=== PATIENT | male | born 1935 | race Caucasian/White ===

== ENCOUNTER 2018-01-02 14:53 | Inpatient (IN) | payer OTHER, MEDICARE ==
[2018-01-02] MEDS ORDERED: HEPARIN SODIUM,PORCINE 5,000 UNIT/ML 1 ML VIAL IV PRN (15:29)
[2018-01-02] MEDS ORDERED: HEPARIN SODIUM,PORCINE 5,000 UNIT/ML 1 ML VIAL IV ONE (15:29)
[2018-01-02] MEDS: HEPARIN SOD,PORK IN 0.45% NACL 25,000 UNIT in 0.45% NACL 1 500ML.BAG IV SCH (15:45)
[2018-01-02] MEDS ORDERED: LABETALOL 5 MG/ML VIAL MDV IVP STA (15:52)
--- NOTE | 2018-01-02 15:53 | ED ---
General Adult HPI - General Chief complaint: Chest Pain Stated complaint: N-STEMI AND BILATERAL PNUEMONIA, TRF FR VALENZUELAE Source: EMS Mode of arrival: EMS - History of Present Illness Initial comments: Dictation was produced using [employer] dictation software. please excuse any grammatical, word or spelling errors. Chief Complaint: 82-year-old male with past medical history of atrial fibrillation presents with episode of chest pressure, shortness of breath and presyncope. History of Present Illness: Patient was initially evaluated [facility] where she answered for elevated troponin. Per transferring physician patient did not complain to them that he was having any chest pressure or chest pain. History limited by communication difficulties. Patient is extremely hard of hearing despite bilateral hearing aids. presents at bedside later reports that patient had episode of chest pressure, shortness of breath and presyncopal symptoms. Patient has no completes at this time. Denies any chest pain currently The ROS documented in this emergency department record has been reviewed and confirmed by me. Those systems with pertinent positive or negative responses have been documented in the HPI. All other systems are other negative and/or noncontributory. - Related Data Home Medications Medication Instructions Recorded Confirmed Acetaminophen [Tylenol] 500 mg PO TID PRN 01/02/18 01/02/18 Ammonium Lactate Cream [Lac-Hydrin 1 applic TOPICAL DAILY 01/02/18 01/02/18 12% Cream] Aspirin 325 mg PO DAILY 01/02/18 01/02/18 Atorvastatin Calcium [Lipitor] 80 mg PO HS 01/02/18 01/02/18 Carvedilol [Coreg] 6.25 mg PO BID-W/MEALS 01/02/18 01/02/18 Fluocinonide 0.05% [Lidex 0.05% 1 applic TOPICAL BID 01/02/18 01/02/18 cream] Furosemide [Lasix] 40 mg PO DAILY 01/02/18 01/02/18 Insulin Glargine,Hum.rec.anlog 35 unit SQ HS 01/02/18 01/02/18 [Basaglar Kwikpen U-100] Ketoconazole 2% Cream [Nizoral 2%] 1 applic TOPICAL BID 01/02/18 01/02/18 Multivitamins, Thera [Multivitamin 1 tab PO DAILY 01/02/18 01/02/18 (formulary)] Pioglitazone [Actos] 45 mg PO DAILY 01/02/18 01/02/18 Sildenafil Citrate [Viagra] 100 mg PO ONCE 01/02/18 01/02/18 glipiZIDE [Glucotrol] 10 mg PO BID 01/02/18 01/02/18 methylPREDNISolone [Medrol Dose 4 mg PO DIRECTED 01/02/18 01/02/18 Pack] Allergies Allergy/AdvReac Type Severity Reaction Status Date / Time No Known Allergies Allergy Verified 01/02/18 16:07 Review of Systems ROS Statement: Those systems with pertinent positive or pertinent negative responses have been documented in the HPI. ROS Other: All systems not noted in ROS Statement are negative. Past Medical History Past Medical History: Atrial Fibrillation, COPD, Diabetes Mellitus, Hypertension Past Surgical History: Unable to Obtain, Cholecystectomy Additional Past Surgical History / Comment(s): lymph node removal for CA, collapsed lung per pt. Past Psychological History: No Psychological Hx Reported General Exam - General Exam Comments Initial Comments: PHYSICAL EXAM: General Impression: Alert and oriented x3, not in acute distress HEENT: Normocephalic atraumatic, extra-ocular movements intact, pupils equal and reactive to light bilaterally, mucous membranes moist. Cardiovascular: Heart regular rate and rhythm, S1&S2 audible, no murmurs, rubs or gallops Chest: Lungs clear to auscultation bilaterally, no rhonchi, no wheeze, no rales Abdomen: Bowel sounds present, abdomen soft, non-tender, non-distended, no organomegaly Musculoskeletal: Pulses present and equal in all extremities, no peripheral edema Motor: Moves all tremors grossly Neurological: CN II-XII grossly intact, no focal motor or sensory deficits noted Skin: Intact with no visualized rashes Psych: Normal affect and mood Course Vital Signs 01/02/18 01/02/18 14:54 15:48 Temperature 98.8 F Pulse Rate 95 78 Respiratory 18 18 Rate Blood Pressure 214/98 195/111 O2 Sat by Pulse 96 95 Oximetry Medical Decision Making - Medical Decision Making ED course: 82-year-old male presents with symptoms concerning for acute coronary syndrome. Troponin elevated at transfer facility of 0.2. There is some suspicion that patient's symptoms represent an STEMI given that reports that he did complain of chest pressure. EKG does not show myocardia infarction at this time. Signs upon arrival shows elevated blood pressure of 195/111, rest of vital signs within normal limits. Reports that he did not take his blood pressure medicine today secondary to vomiting. There is some suspicion that patient's symptoms represent ACS. Currently he denies any shortness of breath. He is a mesh lung sounds however no significant crackling. Patient to be continued on heparin drip. We'll have him admitted for NSTEMI. Patient given aspirin and the previous hospital. Be admitted with cardiology consult. EKG Interpretation: A 12 lead EKG was obtained. It was interpreted by myself and attending physician. There is a P wave before every QRS complex. Rate is 97. Rhythm is sinus rhythm, SC interval 174, QRS 64, QTc 434. QT is not prolonged. No ST segment depression or elevation. There is a T-wave inversion in aVL. No other abnormalities. Disposition Clinical Impression: NSTEMI (non-ST elevated myocardial infarction) Disposition: ADMITTED IP TO THIS HOSP Condition: Fair Referrals: [facility]inic [Primary Care Provider] - 1-2 days Decision Time: 16:52
--- NOTE | 2018-01-02 16:08 | XR ---
EXAMINATION TYPE: XR chest 2V DATE OF EXAM: 01/02/2018 COMPARISON: 03/30/2014 and earlier today HISTORY: 82 year-old male shortness of breath and pain TECHNIQUE: AP and lateral views FINDINGS: Low lung volumes with crowded vascular markings. Heart upper limits of normal in size. Patchy bibasil ar densities are present with possible trace effusions. Right anterior chest wall injection port with catheter tip at the mid SVC. Upper lungs appear relatively clear. IMPRESSION: Hypoventilatory changes limiting assessment. There are focal bibasilar densities as well as possible trace effusions. Follow-up recommended with better inspiratory effort. Findings could represent seque la of CHF or bibasilar pneumonitis.
[2018-01-02] MEDS ORDERED: NITROGLYCERIN SL TABS 0.4 MG TAB SUBLINGUAL PRN (16:52)
[2018-01-02 20:18] LABS: Creatine Kinase MB 71.4 ng/mL (0.0-2.4); Troponin I 0.176 ng/mL (0.000-0.034)
[2018-01-02 21:09] LABS: Glucose,Whole Blood 335 mg/dL (75-99)
[2018-01-02] MEDS: CARVEDILOL 6.25 MG TAB PO SCH (22:26)
[2018-01-02] MEDS: ATORVASTATIN 80 MG TAB PO SCH (22:26)
[2018-01-02] MEDS ORDERED: HALOPERIDOL LACTATE 5 MG/ML 1 ML VIAL IM PRN (22:45)
[2018-01-03 03:20] LABS: HCT 45.5 % (39.0-53.0); HGB 13.9 gm/dL (13.0-17.5); Hypochromasia Moderate; MCH 29.8 pg (25.0-35.0); MCHC 30.5 g/dL (31.0-37.0); MCV 97.6 fL (80.0-100.0); Mean Platelet Volume 7.4; Platelet Count 450 k/uL (150-450); RBC 4.66 m/uL (4.30-5.90); RDW 14.1 % (11.5-15.5)
[2018-01-03 03:38] LABS: WBC 28.8 k/uL (3.8-10.6)
[2018-01-03 03:44] LABS: Calcium 9.2 mg/dL (8.4-10.2); Cholesterol 147 mg/dL (<200); HDL Cholesterol 57 mg/dL (40-60); LDL Cholesterol,Calculated 65 mg/dL (0-99); Magnesium 2.1 mg/dL (1.6-2.3); Potassium 4.8 mmol/L (3.5-5.1); Triglycerides 125 mg/dL (<150)
[2018-01-03 04:04] LABS: Creatine Kinase MB 59.7 ng/mL (0.0-2.4)
[2018-01-03 04:05] LABS: Troponin I 0.159 ng/mL (0.000-0.034)
[2018-01-03 06:10] LABS: Glucose,Whole Blood 333 mg/dL (75-99)
[2018-01-03] MEDS: CARVEDILOL 6.25 MG TAB PO SCH ×3 (06:26→17:24)
[2018-01-03] MEDS: INSULIN ASPART 100 UNIT/ML 1 ML 10 ML VIAL SQ SCH ×4 (07:40→21:18)
[2018-01-03 08:13] LABS: Appearance,Urine Clear (Clear); Bilirubin,Urine Negative (Negative); Blood,Urine Large (Negative); Color,Urine Light Yellow; Glucose,Urine (UA) 4+ (Negative); Hyaline Casts,Urine 3 /lpf (0-2); Ketones,Urine Trace (Negative); Leukocyte Esterase,Urine Negative (Negative); Mucus,Urine Rare /hpf; Nitrite,Urine Negative (Negative); Protein,Urine 2+ (Negative); RBC,Urine 1 /hpf (0-5); Specific Gravity,Urine 1.015 (1.001-1.035); Squamous Epithelial Cell,Urine <1 /hpf (0-4); Urobilinogen,Urine <2.0 mg/dL (<2.0); WBC,Urine <1 /hpf (0-5)
[2018-01-03] MEDS: PIPERACILLIN-TAZOBACTAM 3.375 GM in DEXTROSE/WATER 1 50ML.BAG IVPB SCH ×3 (08:33→23:10)
[2018-01-03] MEDS ORDERED: INSULIN DETEMIR 100 UNIT/ML 10 ML VIAL SQ ONE (08:45)
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
[2018-01-03] MEDS: PIOGLITAZONE 45 MG TAB PO SCH (09:10)
[2018-01-03] MEDS: ASPIRIN 325 MG TAB PO SCH (09:13)
[2018-01-03 09:53] LABS: Basophils % (A) 0 %; Eosinophils % (A) 0 %; HCT 44.5 % (39.0-53.0); HGB 13.5 gm/dL (13.0-17.5); Hypochromasia Slight; Lymphocytes # (A) 1.3 k/uL (1.0-4.8); Lymphocytes % (A) 5 %; MCH 28.7 pg (25.0-35.0); MCHC 30.4 g/dL (31.0-37.0); MCV 94.5 fL (80.0-100.0); Mean Platelet Volume 7.7; Monocytes # (A) 1.5 k/uL (0-1.0); Monocytes % (A) 6 %; Neutrophils # (A) 20.8 k/uL (1.3-7.7); Neutrophils % (A) 87 %; Platelet Count 441 k/uL (150-450); RBC 4.71 m/uL (4.30-5.90); RDW 13.9 % (11.5-15.5); WBC 23.9 k/uL (3.8-10.6)
[2018-01-03] MEDS: HEPARIN SOD,PORK IN 0.45% NACL 25,000 UNIT in 0.45% NACL 1 500ML.BAG IV SCH ×2 (11:01→11:06)
--- NOTE | 2018-01-03 11:35 | ECHOF ---
Referral Reason:sob MEASUREMENTS -------- HEIGHT: 177.8 cm WEIGHT: 92.1 kg BP: 126/88 RVIDd: 2.6 cm (< 3.3) IVSd: 1.0 cm (0.6 - 1.1) LVIDd: 3.9 cm (3.9 - 5.3) LVPWd: 1.1 cm (0.6 - 1.1) IVSs: 1.3 cm LVIDs: 2.8 cm LVPWs: 1.3 cm LAESV Index (A-L): 26.57 ml/m Ao Diam: 4.1 cm (2.0 - 3.7) AV Cusp: 2.0 cm (1.5 - 2.6) LA Diam: 4.2 cm (2.7 - 3.8) MV E Arturo: 1.22 m/s MV DecT: 256 ms MV A Arturo: 0.89 m/s MV E/A Ratio: 1.37 FINDINGS -------- Sinus rhythm with extra systolic beats. This was a technically difficult study with suboptimal views. The left ventricular size is normal. There is borderline concentric left ventricular hypertrophy. Overall left ventricular systolic function is normal with, an EF between 55 - 60 %. The right ventricle is normal in size and function. Normal LA size by volume 22+/-6 ml/m2. The right atrium is normal in size. 3 ml of Lumason was utilized for enhancement of images. The aortic valve is trileaflet, and appears structurally normal. No aortic stenosis or regurgitation. The mitral valve leaflets are mildly thickened. Mild mitral regurgitation is present. Mild tricuspid regurgitation present. Right ventricular systolic pressure is normal at < 35 mmHg. There is no evidence of pulmonary hypertension. Trace/mild (physiologic) pulmonic regurgitation. The aortic root size is normal. Normal inferior vena cava with normal inspiratory collapse consistent with estimated right atrial pre ssure of 5 mmHg. There is no pericardial effusion. CONCLUSIONS -------- 1. Sinus rhythm with extra systolic beats. 2. This was a technically difficult study with suboptimal views. 3. The left ventricular size is normal. 4. There is borderline concentric left ventricular hypertrophy. 5. Overall left ventricular systolic function is normal with, an EF between 55 - 60 %. 6. Normal LA size by volume 22+/-6 ml/m2. 7. 3 ml of Lumason was utilized for enhancement of images. 8. The aortic valve is trileaflet, and appears structurally normal. No aortic stenosis or regurgitati on. 9. The mitral valve leaflets are mildly thickened. 10. Mild mitral regurgitation is present. 11. Mild tricuspid regurgitation present. 12. Right ventricular systolic pressure is normal at < 35 mmHg. 13. Trace/mild (physiologic) pulmonic regurgitation. 14. The aortic root size is normal. 15. There is no pericardial effusion. CHAIN REPAIRER: Zach Dickerson RDCS
--- NOTE | 2018-01-03 11:54 | XR ---
EXAMINATION TYPE: XR chest 1V portable DATE OF EXAM: 01/03/2018 COMPARISON: 01/02/2018 HISTORY: Cough TECHNIQUE: Single frontal view of the chest is obtained. FINDINGS: Mediport catheter seen. Cardiomegaly and atherosclerotic change aorta. Diffuse osteopenia. Bilateral consolidation and tiny left effusion. No overt failure. No pneumothorax. IMPRESSION: Stable bilateral infiltrate and tiny left effusion.
[2018-01-03 12:21] LABS: Glucose,Whole Blood 263 mg/dL (75-99)
--- NOTE | 2018-01-03 14:30 | P.HPIM ---
History of Present Illness H&P Date: 01/03/18 Chief Complaint: Chest pressure and shortness of breath Patient is a 82-year-old male with a known history of paroxysmal atrial fibrillation, metastatic melanoma currently undergoing chemotherapy last dose on 12/23/2017, hypertension, diabetes, hyperlipidemia, dementia was initially presented to [facility] with complaints of chest pressure shortness of breath and presyncope. Patient was transferred to [facility] due to slightly elevated troponin level. Patient was combative last night and apparently hitting the nurses, spitting out his medications. Patient was given a dose of Haldol last night. Otherwise patient does not have any complaints of fever or chills. Patient is more awake and oriented today. EKG showed normal sinus rhythm with occasional PACs Chest x-ray showed hypoventilatory changes limiting assessment. There are focal right basilar densities as well as possible trace effusions. Follow-up recommended. Repeat chest x-ray showed stable bilateral infiltrate and tiny left effusion. WBC 28.8 on admission Hyperglycemia with blood sugar 400 on admission CPK 2232 Troponin 0.152 BNP 1552 Patient is hard of hearing. Review of Systems Constitutional: Patient denies any fever or chills . No generalized weakness or weight loss. Abdomen: Patient denied nausea vomiting and diarrhea and abdominal pain. Cardiovascular: Patient denies any chest pain or short of breath no palpitations. Respiratory: patient denied any cough is from production. No shortness of breath Neurologic: Patient denied any numbness or tingling headache. Complete review of systems could not be obtained from the patient. Past Medical History Past Medical History: Atrial Fibrillation, Cancer, COPD, Diabetes Mellitus, Hearing Disorder / Deafness, Hyperlipidemia, Hypertension, Memory Impairment, Osteoarthritis (OA), Skin Disorder Additional Past Medical History / Comment(s): melanoma- has had 2 chemo treatments at [facility] in [place] stated next one due 01-07-18. 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 Past Anesthesia/Blood Transfusion Reactions: No Reported Reaction Smoking Status: Former smoker - Past Family History Mother Family Medical History: Neurologic Disorder Additional Family Medical History / Comment(s): parkinsons Father Family Medical History: Cancer Additional Family Medical History / Comment(s): spinal cancer Medications and Allergies Home Medications Medication Instructions Recorded Confirmed Type Acetaminophen [Tylenol] 500 mg PO TID PRN 01/02/18 01/02/18 History Ammonium Lactate Cream [Lac-Hydrin 1 applic TOPICAL DAILY 01/02/18 01/02/18 History 12% Cream] Aspirin 325 mg PO DAILY 01/02/18 01/02/18 History Atorvastatin Calcium [Lipitor] 80 mg PO HS 01/02/18 01/02/18 History Carvedilol [Coreg] 6.25 mg PO BID-W/MEALS 01/02/18 01/02/18 History Fluocinonide 0.05% [Lidex 0.05% 1 applic TOPICAL BID 01/02/18 01/02/18 History cream] Furosemide [Lasix] 40 mg PO DAILY 01/02/18 01/02/18 History Insulin Glargine,Hum.rec.anlog 35 unit SQ HS 01/02/18 01/02/18 History [Basaglar Kwikpen U-100] Ketoconazole 2% Cream [Nizoral 2%] 1 applic TOPICAL BID 01/02/18 01/02/18 History Multivitamins, Thera [Multivitamin 1 tab PO DAILY 01/02/18 01/02/18 History (formulary)] Pioglitazone [Actos] 45 mg PO DAILY 01/02/18 01/02/18 History Sildenafil Citrate [Viagra] 100 mg PO ONCE 01/02/18 01/02/18 History glipiZIDE [Glucotrol] 10 mg PO BID 01/02/18 01/02/18 History methylPREDNISolone [Medrol Dose 4 mg PO DIRECTED 01/02/18 01/02/18 History Pack] Allergies Allergy/AdvReac Type Severity Reaction Status Date / Time No Known Allergies Allergy Verified 01/02/18 16:07 Physical Exam Vitals: Vital Signs Temp Pulse Pulse Resp BP BP Pulse Ox 01/03/18 11:16 97.2 F L 82 24 165/77 97 01/03/18 08:00 87 20 126/68 95 01/03/18 04:00 97.5 F L 109 H 24 139/96 92 L 01/03/18 00:00 115 H 24 174/110 97 01/02/18 20:00 96.2 F L 95 24 187/91 95 01/02/18 18:59 98.2 F 97 24 191/93 96 01/02/18 18:24 78 18 179/80 96 01/02/18 17:25 170/95 01/02/18 16:57 87 18 199/98 95 01/02/18 15:48 78 18 195/111 95 01/02/18 14:54 98.8 F 95 18 214/98 96 Intake and Output 01/02/18 01/03/18 01/03/18 22:59 06:59 14:59 Intake Total 235 365 Output Total 500 375 Balance -265 -10 Intake: Intake, IV Titration 235 265 Amount Heparin Sod,Pork in 0.45% 235 265 NaCl 25,000 unit In 0.45 % NaCl 1 500ml.bag @ 10. 16 UNITS/KG/HR 20 mls/hr IV .Q24H [facility] Rx#: [id number] Oral 100 Output: Urine 500 375 Other: Voiding Method Urinal Incontinent # Voids 1 1 Weight 92.4 kg PHYSICAL EXAMINATION: Patient is lying in the bed comfortably, no acute distress, awake alert and oriented. Hard of hearing. HEENT: Normocephalic. Neck is supple. Pupils reactive. Nostrils clear. Oral cavity is moist. Ears reveal no drainage. Neck reveals no JVD, carotid bruits, or thyromegaly. CHEST EXAMINATION: Trachea is central. Symmetrical expansion. Bibasilar crackles. No wheezing. No rhonchi.. CARDIAC: Normal S1, S2 with no gallops. No murmurs ABDOMEN: Soft. Bowel sounds normal. No organomegaly. No abdominal bruits. Extremities: reveal no edema. No clubbing or cyanosis Neurologically awake, alert, oriented x3 with well-coordinated movements. No focal deficits noted Skin: No rash or skin lesions. Psychiatric: Coperative. Could not be assessed completely Musculoskeletal: No joint swelling or deformity. Normal range of motion. Results CBC & Chem 7: 01/03/18 09:21 01/03/18 03:13 Labs: Abnormal Lab Results - Last 24 Hours (Table) 01/02/18 01/02/18 01/02/18 Range/Units 15:27 19:25 19:25 WBC (3.8-10.6) k/uL MCHC (31.0-37.0) g/dL Neutrophils # (1.3-7.7) k/uL Monocytes # (0-1.0) k/uL APTT 32.6 H (22.0-30.0) sec BUN (9-20) mg/dL Creatinine (0.66-1.25) mg/dL Glucose (74-99) mg/dL POC Glucose (mg/dL) (75-99) mg/dL Total Creatine Kinase 2471 H (55-170) U/L CK-MB (CK-2) 71.4 H* (0.0-2.4) ng/mL Troponin I 0.220 H* 0.176 H* (0.000-0.034) ng/mL Urine Protein (Negative) Urine Glucose (UA) (Negative) Urine Ketones (Negative) Urine Blood (Negative) Hyaline Casts (0-2) /lpf Urine Mucus (None) /hpf 01/02/18 01/03/18 01/03/18 Range/Units 21:07 03:13 03:13 WBC 28.8 H* (3.8-10.6) k/uL MCHC 30.5 L (31.0-37.0) g/dL Neutrophils # (1.3-7.7) k/uL Monocytes # (0-1.0) k/uL APTT (22.0-30.0) sec BUN (9-20) mg/dL Creatinine (0.66-1.25) mg/dL Glucose (74-99) mg/dL POC Glucose (mg/dL) 335 H (75-99) mg/dL Total Creatine Kinase 2232 H (55-170) U/L CK-MB (CK-2) 59.7 H* (0.0-2.4) ng/mL Troponin I 0.159 H* (0.000-0.034) ng/mL Urine Protein (Negative) Urine Glucose (UA) (Negative) Urine Ketones (Negative) Urine Blood (Negative) Hyaline Casts (0-2) /lpf Urine Mucus (None) /hpf 01/03/18 01/03/18 01/03/18 Range/Units 03:13 03:13 06:08 WBC (3.8-10.6) k/uL MCHC (31.0-37.0) g/dL Neutrophils # (1.3-7.7) k/uL Monocytes # (0-1.0) k/uL APTT 34.4 H (22.0-30.0) sec BUN 58 H (9-20) mg/dL Creatinine 1.80 H (0.66-1.25) mg/dL Glucose 423 H (74-99) mg/dL POC Glucose (mg/dL) 333 H (75-99) mg/dL Total Creatine Kinase (55-170) U/L CK-MB (CK-2) (0.0-2.4) ng/mL Troponin I (0.000-0.034) ng/mL Urine Protein (Negative) Urine Glucose (UA) (Negative) Urine Ketones (Negative) Urine Blood (Negative) Hyaline Casts (0-2) /lpf Urine Mucus (None) /hpf 01/03/18 01/03/18 01/03/18 Range/Units 07:36 09:21 09:21 WBC 23.9 H (3.8-10.6) k/uL MCHC 30.4 L (31.0-37.0) g/dL Neutrophils # 20.8 H (1.3-7.7) k/uL Monocytes # 1.5 H (0-1.0) k/uL APTT 48.1 H (22.0-30.0) sec BUN (9-20) mg/dL Creatinine (0.66-1.25) mg/dL Glucose (74-99) mg/dL POC Glucose (mg/dL) (75-99) mg/dL Total Creatine Kinase (55-170) U/L CK-MB (CK-2) (0.0-2.4) ng/mL Troponin I (0.000-0.034) ng/mL Urine Protein 2+ H (Negative) Urine Glucose (UA) 4+ H (Negative) Urine Ketones Trace H (Negative) Urine Blood Large H (Negative) Hyaline Casts 3 H (0-2) /lpf Urine Mucus Rare H (None) /hpf Thrombosis Risk Factor Assmnt - DVT/VTE Prophylaxis DVT/VTE Prophylaxis: Pharmacologic Prophylaxis ordered - Choose All That Apply Any of the Below Risk Factors Present?: No Each Risk Factor Represents 2 Points: Malignancy Each Risk Factor Represents 3 Points: Age 75 years or older Thrombosis Risk Factor Assessment Total Risk Factor Score: 5 Thrombosis Risk Factor Assessment Level: High Risk Assessment and Plan Assessment: Shortness of breath and chest pressure. Rule out ACS Slightly elevated troponin. Could be due to acute kidney injury. Bibasilar atelectasis/infiltrate and possible aspiration pneumonia Metastatic melanoma, currently undergoing chemotherapy. Last dose on 12/23/2017 Acute on chronic kidney disease stage III Acute rhabdomyolysis Agitation and combativeness. On admission. Possible delirium vs dementia with behavioral changes. Hypertension Diabetes type 2 Hyperglycemia with uncontrolled diabetes Dementia Hearing disorder/deafness Previous history of smoking COPD DVT prophylaxis Plan: Patient be continued on heparin IV and serial EKG and troponins. Troponins are trending down. We'll continue with gentle hydration and monitor CPK level as well as renal function. Continue with IV hydration. Started back on insulin dose and sliding scale added. Continue the home medications and pain management and follow up closely. Cardiology is on board. 2-D echocardiogram was ordered. Patient is more awake and oriented today but does have significant hearing impairment. Prognosis is guarded with multiple medical problems and, conditions. Patient will be continued on antibiotics in the form of Zosyn. Leukocytosis is improving. Patient was seen by speech swallow evaluation and recommended esophagogram. Further recommendations based on the clinical course. Time with Patient: Greater than 30
[2018-01-03 15:58] LABS: Hemoglobin A1C 9.1 % (4.0-6.0)
--- NOTE | 2018-01-03 16:33 | FL ---
ESOPHOGRAM. HISTORY: Dysphagia Esophagram was performed per the contrast technique. Examination is limited given patient's difficult y in hearing. Tertiary contractions are seen throughout the esophagus compatible with presbyesophagus. There is sta sis of contrast within the esophagus noted. There is no evidence for filling defect, mass or diverticulum. No hiatal hernia seen. Subsequently single contrast cervical esophagram was performed which fails demonstrate evidence for a spiration, penetration or mass. IMPRESSION: 1. Presbyesophagus with stasis of contrast within the esophagus. As noted the examination is quite li mited given patient's difficulty in hearing.
[2018-01-03 17:08] LABS: Glucose,Whole Blood 173 mg/dL (75-99)
[2018-01-03 17:16] LABS: Glucose,Whole Blood 171 mg/dL (75-99)
[2018-01-03] MEDS: CLOTRIMAZOLE 1% CREAM 15 GM TUBE TOPICAL SCH ×2 (17:18→20:17)
[2018-01-03] MEDS: ATORVASTATIN 80 MG TAB PO SCH (20:17)
[2018-01-03 21:17] LABS: Glucose,Whole Blood 123 mg/dL (75-99)
[2018-01-03] MEDS: INSULIN DETEMIR 100 UNIT/ML 10 ML VIAL SQ SCH (21:20)
[2018-01-04 06:07] LABS: Glucose,Whole Blood 79 mg/dL (75-99)
[2018-01-04] MEDS: INSULIN ASPART 100 UNIT/ML 1 ML 10 ML VIAL SQ SCH ×4 (06:14→21:05)
[2018-01-04] MEDS: CARVEDILOL 6.25 MG TAB PO SCH ×2 (06:15→16:36)
[2018-01-04 06:34] LABS: Basophils # (A) 0.1 k/uL (0-0.2); Basophils % (A) 0 %; Eosinophils # (A) 0.2 k/uL (0-0.7); Eosinophils % (A) 1 %; HCT 45.5 % (39.0-53.0); HGB 14.3 gm/dL (13.0-17.5); Hypochromasia Slight; Lymphocytes # (A) 1.7 k/uL (1.0-4.8); Lymphocytes % (A) 9 %; MCH 29.7 pg (25.0-35.0); MCHC 31.5 g/dL (31.0-37.0); MCV 94.3 fL (80.0-100.0); Mean Platelet Volume 7.5; Monocytes # (A) 1.4 k/uL (0-1.0); Monocytes % (A) 7 %; Neutrophils # (A) 15.7 k/uL (1.3-7.7); Neutrophils % (A) 81 %; Platelet Count 426 k/uL (150-450); RBC 4.82 m/uL (4.30-5.90); RDW 14.1 % (11.5-15.5); WBC 19.3 k/uL (3.8-10.6)
[2018-01-04 06:57] LABS: Calcium 9.1 mg/dL (8.4-10.2); Potassium 4.7 mmol/L (3.5-5.1)
[2018-01-04] MEDS: ASPIRIN 325 MG TAB PO SCH (09:26)
[2018-01-04] MEDS: PIOGLITAZONE 45 MG TAB PO SCH (09:26)
[2018-01-04] MEDS: CLOTRIMAZOLE 1% CREAM 15 GM TUBE TOPICAL SCH ×2 (09:26→21:12)
[2018-01-04] MEDS: PIPERACILLIN-TAZOBACTAM 3.375 GM in DEXTROSE/WATER 1 50ML.BAG IVPB SCH ×2 (09:28→16:40)
[2018-01-04 11:42] LABS: Glucose,Whole Blood 77 mg/dL (75-99)
--- NOTE | 2018-01-04 12:18 | CONS ---
CONSULTATION DATE OF SERVICE: 01/04/2018 REASON FOR CONSULTATION: Dysphagia/presbyesophagus. HISTORY OF PRESENT ILLNESS: The patient is an 82-year-old pleasant white male admitted to the hospital with elevated troponin. The patient has been complaining of shortness of breath, difficulty breathing for the last few days duration. While in the hospital he did have a chest x- ray that showed possible right basilar infiltrate suspicious for pneumonia. He was started on broad-spectrum antibiotics because of leukocytosis. Apparently, the patient was having some issues with dysphagia. He did a barium swallow yesterday evening, which showed evidence of presbyesophagus and stasis of contrast within the distal esophagus. Hence, we are consulted in regards to this issue. On further questioning, the patient is extremely hard of hearing. He, however, denies any dysphagia. He does complain of longstanding history of GERD with occasional passive regurgitation. Denies any odynophagia. He reports any choking episodes. He takes medications for heartburn on and off for the last several years, mostly as needed. PAST MEDICAL HISTORY: His past medical history is significant for hypertension, hypercholesteremia, longstanding history of diabetes mellitus, severe hearing disorder, mild dementia, history of melanoma for which currently undergoing chemotherapy and follows at [facility]. PAST SURGICAL HISTORY: Right arm surgery for malignant melanoma, bilateral cataract surgery. MEDICATIONS: Medications at home include Lipitor, aspirin, Lidex cream, Lasix, multivitamin, Actos, Viagra, Glucotrol. ALLERGIES: None. SOCIAL HISTORY: Could not be obtain. FAMILY HISTORY: Could not be obtained as patient is extremely hard of hearing. REVIEW OF SYSTEMS: Could not be obtained. PHYSICAL EXAMINATION: On physical examination, he appears comfortable in no distress. Vital signs are stable. Blood pressure 168/70, pulse 72, temperature 97.5. HEENT EXAMINATION: Unremarkable. Conjunctivae pink. Sclerae anicteric. Oral cavity, no lesions. NECK: No JVD or lymph node enlargement. Chest was clear to auscultation. HEART: Regular rate and rhythm. Abdomen was soft. Bowel sounds are positive. No organomegaly. EXTREMITIES: No pedal edema. SKIN: No rashes. NEURO: He is awake and oriented. LABS: Labs done at the time of admission to the hospital WBC 23.9, hemoglobin 13.5, platelets are normal. Basic metabolic panel showed a BUN of 58, creatinine 1.8. CPK was elevated at 2471. Troponin was elevated at 0.17 and repeat one was . IMPRESSIONS: 1. The patient was admitted to hospital for shortness of breath and chest pressure noted to have mild elevation of troponin for which Cardiology has been consulted. 2. History of gastroesophageal reflux disease/intermittent dysphagia. Modified barium swallow done yesterday did show evidence of presbyesophagus and possible stasis of contrast in the distal esophagus and no obvious stricture was identified. On further questioning, patient, however, denies any dysphagia at the current time. 3. Metastatic melanoma. Follows with Oncology at [facility] undergoing chemotherapy and apparently the last dose was about 2 weeks ago. 4. Severe hearing loss bilaterally. RECOMMENDATIONS: Because of the patient's disability with severe hearing disability, I am not able to communicate with him very well. At this time it is unclear whether he does have dysphagia or not. I discussed with the nursing staff caring for him and suggested that they watch him closely during his food intake today and if there are any issues regarding dysphagia, we will consider to address this tomorrow. For now, I will follow the patient closely during his hospital stay. Thank you for this consultation. MMJIMBO / EVIEN: [id number] /
[2018-01-04 16:19] LABS: Glucose,Whole Blood 66 mg/dL (75-99)
[2018-01-04 16:39] LABS: Glucose,Whole Blood 73 mg/dL (75-99)
[2018-01-04] MEDS ORDERED: ACETAMINOPHEN TAB 500 MG TAB PO PRN (17:19)
[2018-01-04] MEDS ORDERED: IPRATROPIUM-ALBUTEROL 3 ML NEB INHALATION PRN (17:23)
--- NOTE | 2018-01-04 17:54 | PN ---
PROGRESS NOTE DATE OF SERVICE: 01/04/2018 This 82-year-old gentleman who was admitted with shortness of breath and chest pressure, had slightly elevated troponin. Patient also noted to have pneumonia. Patient is still short of breath. The patient also had metastatic melanoma and receiving chemotherapy. The patient also had some swallowing difficulties. also seen the patient. Cardiology is following the patient as well. A 2D echo with Doppler has been done which showed ejection fraction of 55-60 percent with preserved left ventricular function. No chest pain. No palpitations. PAST MEDICAL HISTORY: Reviewed. REVIEW OF SYSTEMS: CARDIOVASCULAR: As mentioned. RESPIRATORY: As mentioned earlier. GI: No nausea. : No dysuria. NERVOUS SYSTEM: No numbness weakness. CURRENT MEDICATIONS: Reviewed and include: 1. Aspirin 320 mg daily. 2. Lipitor 80 mg. 3. Coreg 6.25. 4. Lotrimin. 5. Haldol 2 mg p.r.n. 6. Heparin 5000 subcu b.i.d. 7. Levemir. 8. Nitrostat. 9. Actos. 10.Zosyn IV. PHYSICAL EXAM: Patient is alert, oriented x2. Pulse 84, blood pressure 124/60, respirations 16 , temp is normal. Pulse ox 94 percent on 3 L. HEENT: Conjunctivae normal. Oral mucosa moist. Neck is no jugular venous distention. No carotid bruit. No lymph node enlargement. CARDIOVASCULAR: S1, S2. RESPIRATORY: Breath sounds diminished in the bases. A few scattered rhonchi and crackles. Expiratory wheezing also present. ABDOMEN: Soft, obese, nontender. LEGS: Bilateral leg edema. NERVOUS SYSTEM: No focal deficits. LABS: WBC 19.2, hemoglobin 14.3 creatinine is 2.04, creatine kinase 1425. Barium swallow showed presbyesophagus with stasis of contrast within the esophagus. Chest x-ray reviewed presently. ASSESSMENT: 1. Chronic obstructive pulmonary disease acute exacerbation with bibasilar pneumonia, possibly gram-negative, possibly aspiration. 2. Presbyesophagus in the barium swallow. 3. Increased WBC. 4. Increased creatinine with possibly acute on chronic kidney disease stage III baseline. 5. Troponin 0.176, possible acute non ST elevation myocardial infarction. 6. Increased creatine kinase with possible rhabdomyolysis. 7. Atrial fibrillation. 8. History of chronic obstructive pulmonary disease. 9. Diabetes mellitus type 2. 10.Hypertension. 11.Hyperlipidemia. 12.Degenerative joint disease. 14.History of melanoma. 15.History of cholecystectomy. RECOMMENDATIONS AND DISCUSSION: I recommend to continue current management and symptomatic treatment. Otherwise , at this time I recommend continue the broad-spectrum IV antibiotics. Patient is on IV Zosyn. I recommend bronchodilators. Monitor closely and I would also recommend follow closely with Cardiology. I would also recommend gastroenterology evaluation has been sought. Endoscopy is a possibility. Otherwise prognosis guarded because of multiple complex medical issues. Further recommendations to follow. IV heparin drip is also initiated. Home medication may be continued. discussed with Gastroenterology. Short course IV steroids also will be used. MMODL / IJN: [id number] / ADA
[2018-01-04] MEDS: methylPREDNISolone SOD SUCCI 125 MG/2 ML VIAL IV SCH (19:47)
[2018-01-04] MEDS: HEPARIN SOD,PORK IN 0.45% NACL 25,000 UNIT in 0.45% NACL 1 500ML.BAG IV SCH (19:47)
[2018-01-04] MEDS: PANTOPRAZOLE 40 MG/10 ML VIAL IVP SCH (19:47)
[2018-01-04] MEDS: FORMOTEROL FUMARATE 20 MCG/2 ML NEBU INHALATION SCH (20:04)
[2018-01-04] MEDS: BUDESONIDE 1 MG/2 ML NEBU INHALATION SCH (20:08)
[2018-01-04] MEDS: IPRATROPIUM-ALBUTEROL 3 ML NEB INHALATION SCH (20:09)
[2018-01-04 20:44] LABS: Glucose,Whole Blood 141 mg/dL (75-99)
[2018-01-04] MEDS: ATORVASTATIN 80 MG TAB PO SCH (21:12)
[2018-01-04] MEDS: BETAMETHASONE DIPROPIONATE 0.05% CREAM 15 GM TUBE TOPICAL SCH (21:12)
[2018-01-04] MEDS: INSULIN DETEMIR 100 UNIT/ML 10 ML VIAL SQ SCH (21:13)
[2018-01-05] MEDS: methylPREDNISolone SOD SUCCI 125 MG/2 ML VIAL IV SCH ×3 (02:02→12:24)
[2018-01-05 06:02] LABS: Glucose,Whole Blood 54 mg/dL (75-99)
[2018-01-05] MEDS: INSULIN ASPART 100 UNIT/ML 1 ML 10 ML VIAL SQ SCH ×4 (06:04→21:39)
[2018-01-05] MEDS: CARVEDILOL 6.25 MG TAB PO SCH ×2 (06:06→16:37)
[2018-01-05 06:36] LABS: Glucose,Whole Blood 73 mg/dL (75-99)
[2018-01-05 06:43] LABS: Basophils # (A) 0.1 k/uL (0-0.2); Basophils % (A) 0 %; Eosinophils # (A) 0.2 k/uL (0-0.7); Eosinophils % (A) 1 %; HCT 41.6 % (39.0-53.0); HGB 12.8 gm/dL (13.0-17.5); Hypochromasia Slight; Lymphocytes # (A) 1.7 k/uL (1.0-4.8); Lymphocytes % (A) 10 %; MCH 29.3 pg (25.0-35.0); MCHC 30.9 g/dL (31.0-37.0); Mean Platelet Volume 7.2; Monocytes # (A) 0.9 k/uL (0-1.0); Monocytes % (A) 5 %; Neutrophils # (A) 13.6 k/uL (1.3-7.7); Neutrophils % (A) 82 %; Platelet Count 390 k/uL (150-450); RBC 4.38 m/uL (4.30-5.90); RDW 14.1 % (11.5-15.5); WBC 16.6 k/uL (3.8-10.6)
[2018-01-05] MEDS: HEPARIN SOD,PORK IN 0.45% NACL 25,000 UNIT in 0.45% NACL 1 500ML.BAG IV SCH (06:57)
[2018-01-05 07:01] LABS: Calcium 8.8 mg/dL (8.4-10.2); Potassium 4.2 mmol/L (3.5-5.1)
--- NOTE | 2018-01-05 08:09 | P.NPCON ---
History of Present Illness - Reason for Consult acute renal failure - History of Present Illness Reason for consultation: Acute kidney injury History of present illness: Patient is a 82-year-old male seen in consultation for acute kidney injury. Unclear as to what his present renal function is. Creatinine this admission has been stable in the range of 1.8-2. Patient presented to the hospital with dyspnea and chest pain. His systolic blood pressure was greater than 200 but is now better controlled. Patient has a long-standing history of diabetes mellitus. Currently the patient is sitting up in bed. He's been having difficulty with dysphagia for which gastroenterology is following. Oral intake is poor. He has been voiding according to the nurses. Patient is extremely hard of hearing and therefore I am not able to communicate well with him. No vomiting or diarrhea. I don't see any NSAIDs and his home medications. Echocardiogram revealed preserved ejection fraction. Vital signs are stable. General: The patient appeared well nourished and normally developed. HEENT: Head exam is unremarkable. Neck is without jugular venous distension. LUNGS: Lungs are clear to auscultation and percussion. Breath sounds decreased. HEART: Rate and Rhythm are regular. First and second heart sounds normal. No murmurs, rubs or gallops. ABDOMEN: Abdominal exam reveals normal bowel sounds. Non-tender and non- distended. No evidence of peritonitis. EXTREMITITES: No clubbing, cyanosis, or edema. Past Medical History Past Medical History: Atrial Fibrillation, Cancer, COPD, Diabetes Mellitus, Hearing Disorder / Deafness, Hyperlipidemia, Hypertension, Memory Impairment, Osteoarthritis (OA), Skin Disorder Additional Past Medical History / Comment(s): melanoma- has had 2 chemo treatments at [facility] in [place] stated next one due 01-07-18. 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 Past Anesthesia/Blood Transfusion Reactions: No Reported Reaction Smoking Status: Former smoker - Past Family History Mother Family Medical History: Neurologic Disorder Additional Family Medical History / Comment(s): parkinsons Father Family Medical History: Cancer Additional Family Medical History / Comment(s): spinal cancer Medications and Allergies Home Medications Medication Instructions Recorded Confirmed Type Acetaminophen [Tylenol] 500 mg PO TID PRN 01/02/18 01/02/18 History Ammonium Lactate Cream [Lac-Hydrin 1 applic TOPICAL DAILY 01/02/18 01/02/18 History 12% Cream] Aspirin 325 mg PO DAILY 01/02/18 01/02/18 History Atorvastatin Calcium [Lipitor] 80 mg PO HS 01/02/18 01/02/18 History Carvedilol [Coreg] 6.25 mg PO BID-W/MEALS 01/02/18 01/02/18 History Fluocinonide 0.05% [Lidex 0.05% 1 applic TOPICAL BID 01/02/18 01/02/18 History cream] Furosemide [Lasix] 40 mg PO DAILY 01/02/18 01/02/18 History Insulin Glargine,Hum.rec.anlog 35 unit SQ HS 01/02/18 01/02/18 History [Basaglar Abdelrahman U-100] Ketoconazole 2% Cream [Nizoral 2%] 1 applic TOPICAL BID 01/02/18 01/02/18 History Multivitamins, Thera [Multivitamin 1 tab PO DAILY 01/02/18 01/02/18 History (formulary)] Pioglitazone [Actos] 45 mg PO DAILY 01/02/18 01/02/18 History Sildenafil Citrate [Viagra] 100 mg PO ONCE 01/02/18 01/02/18 History glipiZIDE [Glucotrol] 10 mg PO BID 01/02/18 01/02/18 History methylPREDNISolone [Medrol Dose 4 mg PO DIRECTED 01/02/18 01/02/18 History Pack] Allergies Allergy/AdvReac Type Severity Reaction Status Date / Time No Known Allergies Allergy Verified 01/02/18 16:07 Physical Exam Vitals: Vital Signs Temp Pulse Pulse Resp BP Pulse Ox 01/05/18 04:00 72 18 130/66 96 01/05/18 00:00 97.8 F 68 18 145/70 95 01/04/18 20:19 88 01/04/18 20:09 83 01/04/18 20:00 98 F 68 18 132/56 97 01/04/18 16:00 84 16 124/63 94 L 01/04/18 15:59 16 01/04/18 12:00 85 16 149/73 95 01/04/18 11:09 16 Intake and Output 01/04/18 01/05/18 01/05/18 22:59 06:59 14:59 Intake Total 960 Output Total 275 450 Balance 685 -450 Intake: Oral 960 Output: Urine 275 450 Other: Voiding Method Urinal Urinal Incontinent Incontinent Weight 93.2 kg Results - Lab Results Most recent lab results Calcium 8.8 mg/dL (8.4-10.2) 01/05/18 06:22 Magnesium 2.1 mg/dL (1.6-2.3) 01/03/18 03:13 01/05/18 06:22 01/05/18 06:22 Assessment and Plan Plan: Assessment: 1. Acute kidney injury mostly prerenal related to hemodynamic instability. CK level was elevated at 2471 and was down to 2232 to as of January 03. Creatinine peaked at 2.04 this admission and is 1.98 today. Unknown as to what his base and function is. 2. Rule out chronic kidney disease. 3. Diabetes mellitus. 4. Proteinuria which is likely related to underlying diabetic kidney disease. Will further workup and quantify as an outpatient. 5. Benign hypertension. Controlled. 6. Dyspnea related to COPD exacerbation as well as concern for aspiration pneumonia maintained on antibiotics. 7. Dysphagia related to presbyesophagus with stasis noted on barium swallow. GI following. Plan: Encouraged oral intake as able to tolerate. Check renal ultrasound. Check postvoid residual to make sure no underlying urinary retention. Repeat CK level today and tomorrow. Will require IV hydration if not trending down. Repeat electrolytes in the morning. Thank you for the consultation. I will continue to follow the patient with you during his hospital stay.
[2018-01-05] MEDS: BUDESONIDE 1 MG/2 ML NEBU INHALATION SCH ×2 (08:10→19:57)
[2018-01-05] MEDS: IPRATROPIUM-ALBUTEROL 3 ML NEB INHALATION SCH ×4 (08:11→19:57)
[2018-01-05] MEDS: FORMOTEROL FUMARATE 20 MCG/2 ML NEBU INHALATION SCH ×2 (08:11→19:57)
[2018-01-05] MEDS: AMMONIUM LACTATE 12% CREAM 140 GM TUBE TOPICAL SCH (08:45)
[2018-01-05] MEDS: PIOGLITAZONE 45 MG TAB PO SCH (08:45)
[2018-01-05] MEDS: PANTOPRAZOLE 40 MG/10 ML VIAL IVP SCH (08:45)
[2018-01-05] MEDS: BETAMETHASONE DIPROPIONATE 0.05% CREAM 15 GM TUBE TOPICAL SCH ×2 (08:45→20:33)
[2018-01-05] MEDS: ASPIRIN 325 MG TAB PO SCH (08:45)
[2018-01-05] MEDS: CLOTRIMAZOLE 1% CREAM 15 GM TUBE TOPICAL SCH ×2 (08:46→20:33)
[2018-01-05] MEDS: PIPERACILLIN-TAZOBACTAM 3.375 GM in DEXTROSE/WATER 1 50ML.BAG IVPB SCH ×4 (08:50→23:55)
[2018-01-05 09:50] LABS: Glucose,Whole Blood 130 mg/dL (75-99)
--- NOTE | 2018-01-05 10:10 | PN ---
PROGRESS NOTE DATE OF DICTATION: January 05, 2018. REQUESTING PHYSICIAN: Dr. Lundberg, and [facility]. The patient is an 82-year-old pleasant white male admitted to hospital with shortness of breath, chest pressure and was subsequently noted to have elevated CPK and mild elevation of troponin and was transferred here. Since being in the hospital, he has been complaining of some reflux symptoms and has been having poor oral intake as per the family members. He had a barium swallow done 2 days ago that showed evidence of stasis of contrast in the distal esophagus. The patient is extremely hard of hearing. Hence, most of the history was obtained from the nurse caring for him. He did not have any problems swallowing pills but apparently cannot swallow liquids well. He has longstanding history of GERD and complains of acid reflux symptoms all the time. He reports no nausea, vomiting. No abdominal pain. PHYSICAL EXAMINATION: Appears comfortable in no apparent distress. Blood pressure 133/86, pulse rate 76, temperature 98. HEENT examination unremarkable. Conjunctivae pink. Sclerae anicteric. Oral cavity no lesions. Neck no jugular venous distention or lymph node enlargement. Chest was decreased breath sounds bilaterally. HEART: Regular rate and rhythm. ABDOMEN: Soft. Bowel sounds are positive. No organomegaly. Extremities: No pedal edema. Skin no rashes. NEUROLOGIC: Alert and oriented x3. No focal deficits. LABS: From today WBC 16, hemoglobin for 12, platelets normal, BUN 69, creatinine 1.98. IMPRESSION: 1. Dysphagia/gastroesophageal reflux disease. Recent barium esophagogram showed no obvious stricture but stasis of contrast in the distal esophagus, rule out esophageal stricture. The patient has been having difficulty swallowing solids. 2. Pneumonia on broad-spectrum antibiotics. 3. Acute kidney injury. 4. Exacerbation of chronic obstructive pulmonary disease/congestive heart failure. RECOMMENDATIONS: 1. Continue with Protonix 40 mg daily. 2. Advance to regular diet. 3. We will proceed with an upper endoscopy tomorrow. I discussed with the patient and he is agreeable to it. Thank you for this consultation. MMODL / IJN: [id number] /
[2018-01-05 11:28] LABS: Glucose,Whole Blood 114 mg/dL (75-99)
--- NOTE | 2018-01-05 11:29 | US ---
EXAMINATION TYPE: US kidneys/renal and bladder DATE OF EXAM: 01/05/2018 COMPARISON: NONE CLINICAL HISTORY: 82-year-old male with acute kidney injury. Elderly male, unable to hear any questio ns I was asking TECHNIQUE: Multiple sonographic images of the kidneys and bladder are obtained. FINDINGS: EXAM MEASUREMENTS: Right Kidney: 11.6 x 5.2 x 5.1 cm Left Kidney: 11.7 x 5.1 x 6.0 cm LABOR RELATIONS OR PERSONNEL NEGOTIATOR NOTES: *large body habitus Right Kidney: cortical thinning, no hydronephrosis. Left Kidney: cortical thinning, no hydronephrosis. Bladder: wnl Bilateral Jets seen: No IMPRESSION: Changes of chronic medical renal disease. No hydronephrosis.
--- NOTE | 2018-01-05 11:53 | P.CNPUL ---
History of Present Illness Consult date: 01/05/18 Requesting physician: Fuad Yen Reason for consult: COPD Chief complaint: Chest pain History of present illness: This is an 82-year-old white male with history of atrial fibrillation, transferred on 01/02/2018 from [facility] were in he presented with chest pain and elevated troponin level. The patient himself is a very poor historian , and he is very hard of hearing. Patient was referred to [facility], and has been inpatient since 01/02/2018. He was seen by many consultants including cardiology, internal medicine, and nephrology. Chest x- ray on admission showed mostly hypoventilatory changes, focal basilar densities and trace of effusions noted, felt to be either congestive heart failure or bibasilar pneumonia. However the clinical history is not quite suggestive of pneumonia. It is mostly suggestive of cardiac event. No cough, no fever, no chills, no hemoptysis. I reviewed the chest x-ray myself, and felt the findings are again very nonspecific. However a barium swallow was done mostly because of the concern of possible aspiration, and there was evidence of presbyesophagus with stasis of contrast within the esophagus. Hence the possibility of aspiration is very likely, and the patient is a great set up for aspiration pneumonia. He is empirically on antibiotics. Not much history could be obtained from the patient. His CBC showed leukocytosis with WBC count of 16.6. His electrolytes showed renal failure/acute kidney injury, and his troponins were significantly elevated since admission. BNP level was also elevated at 1550. Patient has been seen by cardiology on consultation. Mostly recommended conservative measures and not convinced that his elevated troponins are clinically significant. And his EKG showed nonspecific ST and T wave changes. Review of Systems ROS unobtainable: due to mental status Past Medical History Past Medical History: Atrial Fibrillation, Cancer, COPD, Diabetes Mellitus, Hearing Disorder / Deafness, Hyperlipidemia, Hypertension, Memory Impairment, Osteoarthritis (OA), Skin Disorder Additional Past Medical History / Comment(s): melanoma- [facility] due 01[facility]. 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 Past Anesthesia/Blood Transfusion Reactions: No Reported Reaction Smoking Status: Former smoker - Past Family History Mother Family Medical History: Neurologic Disorder Additional Family Medical History / Comment(s): parkinsons Father Family Medical History: Cancer Additional Family Medical History / Comment(s): spinal cancer Medications and Allergies Home Medications Medication Instructions Recorded Confirmed Type Acetaminophen [Tylenol] 500 mg PO TID PRN 01/02/18 01/02/18 History Ammonium Lactate Cream [Lac-Hydrin 1 applic TOPICAL DAILY 01/02/18 01/02/18 History 12% Cream] Aspirin 325 mg PO DAILY 01/02/18 01/02/18 History Atorvastatin Calcium [Lipitor] 80 mg PO HS 01/02/18 01/02/18 History Carvedilol [Coreg] 6.25 mg PO BID-W/MEALS 01/02/18 01/02/18 History Fluocinonide 0.05% [Lidex 0.05% 1 applic TOPICAL BID 01/02/18 01/02/18 History cream] Furosemide [Lasix] 40 mg PO DAILY 01/02/18 01/02/18 History Insulin Glargine,Hum.rec.anlog 35 unit SQ HS 01/02/18 01/02/18 History [Basaglar Kwikpen U-100] Ketoconazole 2% Cream [Nizoral 2%] 1 applic TOPICAL BID 01/02/18 01/02/18 History Multivitamins, Thera [Multivitamin 1 tab PO DAILY 01/02/18 01/02/18 History (formulary)] Pioglitazone [Actos] 45 mg PO DAILY 01/02/18 01/02/18 History Sildenafil Citrate [Viagra] 100 mg PO ONCE 01/02/18 01/02/18 History glipiZIDE [Glucotrol] 10 mg PO BID 01/02/18 01/02/18 History methylPREDNISolone [Medrol Dose 4 mg PO DIRECTED 01/02/18 01/02/18 History Pack] Allergies Allergy/AdvReac Type Severity Reaction Status Date / Time No Known Allergies Allergy Verified 01/02/18 16:07 Physical Exam Vitals: Vital Signs Temp Pulse Pulse Resp BP Pulse Ox 01/05/18 11:36 76 01/05/18 11:16 16 01/05/18 08:32 80 01/05/18 08:22 76 01/05/18 08:21 76 01/05/18 08:12 76 96 01/05/18 08:00 96.9 F L 74 16 108/64 01/05/18 04:00 72 18 130/66 96 01/05/18 00:00 97.8 F 68 18 145/70 95 01/04/18 20:19 88 01/04/18 20:09 83 01/04/18 20:00 98 F 68 18 132/56 97 01/04/18 16:00 84 16 124/63 94 L 01/04/18 15:59 16 01/04/18 12:00 85 16 149/73 95 Intake and Output 01/04/18 01/05/18 01/05/18 22:59 06:59 14:59 Intake Total 960 280 Output Total 275 450 100 Balance 685 -450 180 Intake: Oral 960 280 Output: Urine 275 450 100 Other: Voiding Method Urinal Urinal Urinal Incontinent Incontinent Incontinent Weight 93.2 kg General Impression: Alert and oriented, however the patient is extremely hard of hearing, could not maintain an adequate conversation with the patient and no family members at bedside. HEENT: PERRLA, EOMI, no icterus, no neck masses, no JVD. No stridor. No lymphadenopathy. Cardiovascular: Irregular irregular rhythm, normal S1&S2 audible, no murmurs, rubs or gallops Chest: Lungs clear to auscultation bilaterally, no rhonchi, no wheeze, no rales Abdomen: Bowel sounds present, abdomen soft, non-tender, non-distended, no organomegaly Musculoskeletal: Pulses present and equal in all extremities, trace of peripheral edema noted. Motor: Moves all tremors grossly Neurological: CN II-XII grossly intact, extremely hard of hearing, Skin: Intact with no visualized rashes Psych: Normal affect and mood Results - Laboratory Findings CBC and BMP: 01/05/18 06:22 01/05/18 06:22 Abnormal lab findings: Abnormal Labs 01/02/18 01/02/18 01/02/18 15:27 19:25 19:25 WBC Hgb MCHC Neutrophils # Monocytes # APTT 32.6 H Chloride BUN Creatinine Glucose POC Glucose (mg/dL) Hemoglobin A1c Creatine Kinase Total Creatine Kinase 2471 H CK-MB (CK-2) 71.4 H* Troponin I 0.220 H* 0.176 H* Urine Protein Urine Glucose (UA) Urine Ketones Urine Blood Hyaline Casts Urine Mucus 01/02/18 01/03/18 01/03/18 21:07 03:13 03:13 WBC 28.8 H* Hgb MCHC 30.5 L Neutrophils # Monocytes # APTT Chloride BUN Creatinine Glucose POC Glucose (mg/dL) 335 H Hemoglobin A1c Creatine Kinase Total Creatine Kinase 2232 H CK-MB (CK-2) 59.7 H* Troponin I 0.159 H* Urine Protein Urine Glucose (UA) Urine Ketones Urine Blood Hyaline Casts Urine Mucus 01/03/18 01/03/18 01/03/18 03:13 03:13 03:13 WBC Hgb MCHC Neutrophils # Monocytes # APTT 34.4 H Chloride BUN 58 H Creatinine 1.80 H Glucose 423 H POC Glucose (mg/dL) Hemoglobin A1c 9.1 H Creatine Kinase Total Creatine Kinase CK-MB (CK-2) Troponin I Urine Protein Urine Glucose (UA) Urine Ketones Urine Blood Hyaline Casts Urine Mucus 01/03/18 01/03/18 01/03/18 06:08 07:36 09:21 WBC 23.9 H Hgb MCHC 30.4 L Neutrophils # 20.8 H Monocytes # 1.5 H APTT Chloride BUN Creatinine Glucose POC Glucose (mg/dL) 333 H Hemoglobin A1c Creatine Kinase Total Creatine Kinase CK-MB (CK-2) Troponin I Urine Protein 2+ H Urine Glucose (UA) 4+ H Urine Ketones Trace H Urine Blood Large H Hyaline Casts 3 H Urine Mucus Rare H 01/03/18 01/03/18 01/03/18 09:21 12:13 16:32 WBC Hgb MCHC Neutrophils # Monocytes # APTT 48.1 H Chloride BUN Creatinine Glucose POC Glucose (mg/dL) 263 H 173 H Hemoglobin A1c Creatine Kinase Total Creatine Kinase CK-MB (CK-2) Troponin I Urine Protein Urine Glucose (UA) Urine Ketones Urine Blood Hyaline Casts Urine Mucus 01/03/18 01/03/18 01/04/18 17:11 21:15 06:06 WBC Hgb MCHC Neutrophils # Monocytes # APTT 79.2 H Chloride BUN Creatinine Glucose POC Glucose (mg/dL) 171 H 123 H Hemoglobin A1c Creatine Kinase Total Creatine Kinase CK-MB (CK-2) Troponin I Urine Protein Urine Glucose (UA) Urine Ketones Urine Blood Hyaline Casts Urine Mucus 01/04/18 01/04/18 01/04/18 06:06 06:06 12:14 WBC 19.3 H Hgb MCHC Neutrophils # 15.7 H Monocytes # 1.4 H APTT 59.9 H Chloride 109 H BUN 65 H Creatinine 2.04 H Glucose POC Glucose (mg/dL) Hemoglobin A1c Creatine Kinase 1425 H Total Creatine Kinase CK-MB (CK-2) Troponin I Urine Protein Urine Glucose (UA) Urine Ketones Urine Blood Hyaline Casts Urine Mucus 01/04/18 01/04/18 01/04/18 16:11 16:33 20:43 WBC Hgb MCHC Neutrophils # Monocytes # APTT Chloride BUN Creatinine Glucose POC Glucose (mg/dL) 66 L 73 L 141 H Hemoglobin A1c Creatine Kinase Total Creatine Kinase CK-MB (CK-2) Troponin I Urine Protein Urine Glucose (UA) Urine Ketones Urine Blood Hyaline Casts Urine Mucus 01/05/18 01/05/18 01/05/18 05:53 06:22 06:22 WBC 16.6 H Hgb 12.8 L MCHC 30.9 L Neutrophils # 13.6 H Monocytes # APTT Chloride 109 H BUN 69 H Creatinine 1.98 H Glucose 70 L POC Glucose (mg/dL) 54 L Hemoglobin A1c Creatine Kinase Total Creatine Kinase CK-MB (CK-2) Troponin I Urine Protein Urine Glucose (UA) Urine Ketones Urine Blood Hyaline Casts Urine Mucus 01/05/18 01/05/18 01/05/18 06:22 06:22 06:23 WBC Hgb MCHC Neutrophils # Monocytes # APTT 82.3 H Chloride BUN Creatinine Glucose POC Glucose (mg/dL) 73 L Hemoglobin A1c Creatine Kinase 1104 H Total Creatine Kinase CK-MB (CK-2) Troponin I Urine Protein Urine Glucose (UA) Urine Ketones Urine Blood Hyaline Casts Urine Mucus 01/05/18 01/05/18 09:30 11:14 WBC Hgb MCHC Neutrophils # Monocytes # APTT Chloride BUN Creatinine Glucose POC Glucose (mg/dL) 130 H 114 H Hemoglobin A1c Creatine Kinase Total Creatine Kinase CK-MB (CK-2) Troponin I Urine Protein Urine Glucose (UA) Urine Ketones Urine Blood Hyaline Casts Urine Mucus - Diagnostic Findings Chest x-ray: image reviewed (Chest x-ray was reviewed, bibasilar changes noted, could be atelectasis, or could be related to aspiration pneumonia.) Assessment and Plan Assessment: Impression: 1 acute chest pain with abnormal troponin, possible acute coronary syndrome. 2 suspect aspiration pneumonia. 3 history of metastatic melanoma undergoing chemotherapy 4 acute on chronic kidney injury, patient is known to have chronic kidney disease stage III. 5 multiple comorbidities including hypertension, type 2 diabetes, severe hearing loss, underlying COPD. Remote smoking history. Recommendation: Agree with present treatment plan including bronchodilators/ DuoNeb, Pulmicort, Perforomist, methylprednisolone, and Zosyn. We'll continue to follow. Time with Patient: Greater than 30
[2018-01-05 12:11] VITALS: BMI 29.5
[2018-01-05 16:19] LABS: Glucose,Whole Blood 156 mg/dL (75-99)
[2018-01-05] MEDS: methylPREDNISolone SOD SUCCI 40 MG/ML 1 ML VIAL IV SCH ×2 (16:37→23:55)
[2018-01-05] MEDS: HEPARIN SODIUM,PORCINE 5,000 UNIT/ML 1 ML VIAL SQ SCH ×2 (16:39→23:55)
--- NOTE | 2018-01-05 18:28 | PN ---
PROGRESS NOTE DATE OF SERVICE: 01/05/2018 This 82-year-old woman who was admitted with COPD acute exacerbation and bibasilar pneumonia also had presbyesophagus. Dr. Jaramillo is planning possibly EGD. Abdominal bladder ultrasound has been done which showed changes of chronic medical renal disease. The bronchodilator treatment also has been optimized. Patient is feeling slightly better. PAST MEDICAL HISTORY: Reviewed. REVIEW OF SYSTEMS: Cardiovascular: No angina or palpitations. Respiratory: As mentioned earlier. ENT: Patient is extremely hard of hearing. CURRENT MEDICATIONS: 1. Tylenol 500 mg t.i.d. p.r.n. 2. DuoNeb q.i.d. p.r.n. 3. Aspirin 320 mg daily. 4. Lipitor 80 mg. 5. Pulmicort 1 mg b.i.d. 6. Coreg 6.25 mg b.i.d. 7. Lotrisone Perforomist 20 mg b.i.d. 8. Haldol. 9. Heparin b.i.d. 10.NovoLog scale. 11.Levemir 35 units subcu q.h.s. 12.Lactic acid. 13.Solu-Medrol 60 IV q.6 hours. 15.Protonix 40 mg. 16.Actos. 17.Zosyn 3.5 IV q8. PHYSICAL EXAM: Patient is alert, oriented x3. The pulse is 78, blood pressure 161/73, respirations 16, temp is normal. Pulse ox 98% on 3 L. HEENT: Conjunctivae normal. Oral mucosa is moist. Neck is no jugular venous distention. No carotid bruit. No lymph node enlargement. Cardiovascular: S1, S2 muffled. RESPIRATORY: Breath sounds diminished in the bases. Bilateral scattered rhonchi and crackles. ABDOMEN: Soft, nontender. No mass palpable. Legs are no edema. No swelling. CENTRAL NERVOUS SYSTEM: No focal deficits. LAB STUDIES: WBC 16, creatinine is 1.98. ASSESSMENT: 1. Acute exacerbation with bibasilar pneumonia possibly gram-negative, possibly aspiration. 2. Presbyesophagus in the barium swallow rule out esophageal stricture. 3. Increased WBC. 4. Increased creatinine with possible acute on chronic kidney disease stage 3 baseline. 5. Troponin 0.176. Possible acute non ST segment elevation myocardial infarction. 6. Increased creatinine kinase with possible rhabdomyolysis. 7. Atrial fibrillation. 8. History of chronic obstructive pulmonary disease. 9. Diabetes mellitus type 2. 10.Hypertension. 11.Hyperlipidemia. 12.History of degenerative joint disease. 13.History of melanoma. 14.History of cholecystectomy. RECOMMENDATIONS AND DISCUSSION: Recommend to continue current medications, monitoring, management and symptomatic treatment. Otherwise, continue with antibiotics. Continue the rest of medications. Monitor creatinine closely. Otherwise, closely follow with Dr. Cerrato and Cardiology. Prognosis guarded because of multiple complex medical issues. Further recommendations to follow. Broad-spectrum IV antibiotics and endoscopes per Dr. Jaramillo. Guarded prognosis. Further recommendations to follow. MMODL / IJN: [id number] / MTDD
[2018-01-05] MEDS: ATORVASTATIN 80 MG TAB PO SCH (20:33)
[2018-01-05 20:59] LABS: Glucose,Whole Blood 181 mg/dL (75-99)
[2018-01-05] MEDS: INSULIN DETEMIR 100 UNIT/ML 10 ML VIAL SQ SCH (22:23)
[2018-01-06 06:22] LABS: Glucose,Whole Blood 173 mg/dL (75-99)
[2018-01-06 06:23] LABS: Basophils % (A) 0 %; Eosinophils # (A) 0.1 k/uL (0-0.7); Eosinophils % (A) 0 %; HCT 40.2 % (39.0-53.0); HGB 12.5 gm/dL (13.0-17.5); Lymphocytes # (A) 1.5 k/uL (1.0-4.8); Lymphocytes % (A) 6 %; MCV 93.5 fL (80.0-100.0); Mean Platelet Volume 7.9; Monocytes # (A) 1.1 k/uL (0-1.0); Monocytes % (A) 5 %; Neutrophils # (A) 20.5 k/uL (1.3-7.7); Neutrophils % (A) 88 %; Platelet Count 400 k/uL (150-450); RDW 14.3 % (11.5-15.5); WBC 23.3 k/uL (3.8-10.6)
[2018-01-06] MEDS: INSULIN ASPART 100 UNIT/ML 1 ML 10 ML VIAL SQ SCH ×4 (06:30→22:10)
[2018-01-06] MEDS: CARVEDILOL 6.25 MG TAB PO SCH ×2 (06:31→16:44)
[2018-01-06] MEDS: IPRATROPIUM-ALBUTEROL 3 ML NEB INHALATION SCH ×4 (07:20→19:30)
[2018-01-06] MEDS: BUDESONIDE 1 MG/2 ML NEBU INHALATION SCH ×2 (07:20→19:28)
[2018-01-06] MEDS: FORMOTEROL FUMARATE 20 MCG/2 ML NEBU INHALATION SCH ×2 (07:20→19:28)
--- NOTE | 2018-01-06 08:05 | P.PN ---
Subjective Patient is seen in follow-up for acute kidney injury. Unclear as to what his baseline renal function is. Creatinine has been in the range of 1.8-2. Renal function is worse today with creatinine at 2.21. Patient's been having dysphagia and is not able to tolerate oral intake especially solids. Scheduled for EGD today. He is nonoliguric. Patient is very hard of hearing. Vital signs are stable. General: The patient appeared well nourished and normally developed. HEENT: Head exam is unremarkable. Neck is without jugular venous distension. LUNGS: Lungs are clear to auscultation and percussion. Breath sounds decreased. HEART: Rate and Rhythm are regular. First and second heart sounds normal. No murmurs, rubs or gallops. ABDOMEN: Abdominal exam reveals normal bowel sounds. Non-tender and non- distended. No evidence of peritonitis. EXTREMITITES: No clubbing, cyanosis, or edema. Objective - Vital Signs Vital signs: Vital Signs Temp 97.8 F 01/06/18 04:00 Pulse 72 01/06/18 07:40 Resp 20 01/06/18 04:00 BP 145/58 01/06/18 04:00 Pulse Ox 97 01/06/18 04:00 Intake & Output 01/05/18 01/06/18 01/06/18 18:59 06:59 18:59 Intake Total 833 240 Output Total 300 450 Balance 533 -210 Weight 93.2 kg 93.5 kg Intake: IV 325 Piperacillin-Tazobactam 3 50 .375 gm In Dextrose/Water 1 50ml.bag @ 12.5 mls/hr IVPB Q8HR [facility] Rx#: [id number] heparin 32.7 275 Oral 508 240 Output: Urine 300 450 Other: Voiding Method Urinal Urinal Incontinent Incontinent # Voids 1 0 # Bowel Movements 1 - Labs CBC & Chem 7: 01/06/18 05:57 01/06/18 05:57 Labs: Abnormal Lab Results - Last 24 Hours (Table) 01/05/18 01/05/18 01/05/18 Range/Units 06:22 09:30 11:14 WBC (3.8-10.6) k/uL Hgb (13.0-17.5) gm/dL Neutrophils # (1.3-7.7) k/uL Monocytes # (0-1.0) k/uL APTT (22.0-30.0) sec BUN (9-20) mg/dL Creatinine (0.66-1.25) mg/dL Glucose (74-99) mg/dL POC Glucose (mg/dL) 130 H 114 H (75-99) mg/dL Creatine Kinase 1104 H (55-170) U/L 01/05/18 01/05/18 01/05/18 Range/Units 13:00 16:14 20:57 WBC (3.8-10.6) k/uL Hgb (13.0-17.5) gm/dL Neutrophils # (1.3-7.7) k/uL Monocytes # (0-1.0) k/uL APTT 54.6 H (22.0-30.0) sec BUN (9-20) mg/dL Creatinine (0.66-1.25) mg/dL Glucose (74-99) mg/dL POC Glucose (mg/dL) 156 H 181 H (75-99) mg/dL Creatine Kinase (55-170) U/L 01/06/18 01/06/18 01/06/18 Range/Units 05:57 05:57 06:17 WBC 23.3 H (3.8-10.6) k/uL Hgb 12.5 L (13.0-17.5) gm/dL Neutrophils # 20.5 H (1.3-7.7) k/uL Monocytes # 1.1 H (0-1.0) k/uL APTT (22.0-30.0) sec BUN 79 H (9-20) mg/dL Creatinine 2.21 H (0.66-1.25) mg/dL Glucose 193 H (74-99) mg/dL POC Glucose (mg/dL) 173 H (75-99) mg/dL Creatine Kinase 688 H (55-170) U/L Microbiology - Last 24 Hours (Table) 01/03/18 09:21 Blood Culture - Preliminary Blood No Growth after 48 hours Assessment and Plan Plan: Assessment: 1. Acute kidney injury mostly prerenal related to hemodynamic instability. CK level was elevated at 2471 and was down to 688 today. Renal function worse today with creatinine at 2.21. Unknown as to what his base and function is. No evidence of hydronephrosis noted on renal ultrasound. 2. Rule out chronic kidney disease. Noted to have cortical thinning on renal ultrasound. 3. Diabetes mellitus. 4. Proteinuria which is likely related to underlying diabetic kidney disease. Will further workup and quantify as an outpatient. 5. Benign hypertension. Controlled. 6. Dyspnea related to COPD exacerbation as well as concern for aspiration pneumonia maintained on antibiotics. 7. Dysphagia related to presbyesophagus with stasis noted on barium swallow. GI following. Plan: Continue to monitor postvoid residual to make sure no underlying urinary retention. Start normal saline at 50 mL an hour. Will Hep-Lock once able to tolerate oral intake.
[2018-01-06] MEDS: HEPARIN SODIUM,PORCINE 5,000 UNIT/ML 1 ML VIAL SQ SCH ×2 (08:35→16:44)
[2018-01-06] MEDS: PIPERACILLIN-TAZOBACTAM 3.375 GM in DEXTROSE/WATER 1 50ML.BAG IVPB SCH ×2 (08:35→16:44)
[2018-01-06] MEDS: SODIUM CHLORIDE 0.9% 1,000 ML IV SCH (08:35)
[2018-01-06] MEDS: CLOTRIMAZOLE 1% CREAM 15 GM TUBE TOPICAL SCH ×2 (08:35→22:10)
[2018-01-06] MEDS: methylPREDNISolone SOD SUCCI 40 MG/ML 1 ML VIAL IV SCH ×2 (08:35→16:44)
[2018-01-06] MEDS: BETAMETHASONE DIPROPIONATE 0.05% CREAM 15 GM TUBE TOPICAL SCH ×2 (08:36→22:10)
[2018-01-06] MEDS: PANTOPRAZOLE 40 MG/10 ML VIAL IVP SCH (08:36)
[2018-01-06] MEDS: PIOGLITAZONE 45 MG TAB PO SCH (08:36)
[2018-01-06] MEDS: ASPIRIN 325 MG TAB PO SCH (08:36)
[2018-01-06] MEDS: AMMONIUM LACTATE 12% CREAM 140 GM TUBE TOPICAL SCH (08:36)
--- NOTE | 2018-01-06 11:00 | P.PN ---
Subjective Progress Note Date: 01/06/18 Principal diagnosis: Acute coronary syndrome and aspiration pneumonia This is an 82-year-old white male with history of atrial fibrillation, transferred on 01/02/2018 from [facility] were in he presented with chest pain and elevated troponin level. The patient himself is a very poor historian , and he is very hard of hearing. Patient was referred to [facility], and has been inpatient since 01/02/2018. He was seen by many consultants including cardiology, internal medicine, and nephrology. Chest x- ray on admission showed mostly hypoventilatory changes, focal basilar densities and trace of effusions noted, felt to be either congestive heart failure or bibasilar pneumonia. However the clinical history is not quite suggestive of pneumonia. It is mostly suggestive of cardiac event. No cough, no fever, no chills, no hemoptysis. I reviewed the chest x-ray myself, and felt the findings are again very nonspecific. However a barium swallow was done mostly because of the concern of possible aspiration, and there was evidence of presbyesophagus with stasis of contrast within the esophagus. Hence the possibility of aspiration is very likely, and the patient is a great set up for aspiration pneumonia. He is empirically on antibiotics. Not much history could be obtained from the patient. His CBC showed leukocytosis with WBC count of 16.6. His electrolytes showed renal failure/acute kidney injury, and his troponins were significantly elevated since admission. BNP level was also elevated at 1550. Patient has been seen by cardiology on consultation. Mostly recommended conservative measures and not convinced that his elevated troponins are clinically significant. And his EKG showed nonspecific ST and T wave changes. Reevaluated today on 01/06/2018, patient is about the same. Patient is a very poor historian, very hard of hearing, in no form of respiratory distress. Labs were reviewed including CBC which showed leukocytosis with WBC count of 23.3 hemoglobin is 12.5. BUN is 79 creatinine is 2.21 which is relatively close to his baseline. Objective - Vital Signs Vital signs: Vital Signs Temp 97.7 F 01/06/18 08:00 Pulse 90 01/06/18 08:00 Resp 19 01/06/18 08:00 BP 144/72 01/06/18 08:00 Pulse Ox 93 L 01/06/18 08:00 Intake & Output 01/05/18 01/06/18 01/06/18 18:59 06:59 18:59 Intake Total 833 240 Output Total 300 450 300 Balance 533 -210 -300 Weight 93.2 kg 93.5 kg Intake: IV 325 Piperacillin-Tazobactam 3 50 .375 gm In Dextrose/Water 1 50ml.bag @ 12.5 mls/hr IVPB Q8HR [facility] Rx#: [id number] heparin 32.7 275 Oral 508 240 Output: Urine 300 450 300 Other: Voiding Method Urinal Urinal Urinal Incontinent Incontinent Incontinent # Voids 1 0 # Bowel Movements 1 - Exam General Impression: Alert and oriented, however the patient is extremely hard of hearing, could not maintain an adequate conversation with the patient and no family members at bedside. HEENT: PERRLA, EOMI, no icterus, no neck masses, no JVD. No stridor. No lymphadenopathy. Cardiovascular: Irregular irregular rhythm, normal S1&S2 audible, no murmurs, rubs or gallops Chest: Lungs clear to auscultation bilaterally, no rhonchi, no wheeze, no rales Abdomen: Bowel sounds present, abdomen soft, non-tender, non-distended, no organomegaly Musculoskeletal: Pulses present and equal in all extremities, trace of peripheral edema noted. Motor: Moves all tremors grossly Neurological: CN II-XII grossly intact, extremely hard of hearing, Skin: Intact with no visualized rashes Psych: Normal affect and mood - Labs CBC & Chem 7: 01/06/18 05:57 01/06/18 05:57 Labs: Abnormal Lab Results - Last 24 Hours (Table) 01/05/18 01/05/18 01/05/18 Range/Units 11:14 13:00 16:14 WBC (3.8-10.6) k/uL Hgb (13.0-17.5) gm/dL Neutrophils # (1.3-7.7) k/uL Monocytes # (0-1.0) k/uL APTT 54.6 H (22.0-30.0) sec BUN (9-20) mg/dL Creatinine (0.66-1.25) mg/dL Glucose (74-99) mg/dL POC Glucose (mg/dL) 114 H 156 H (75-99) mg/dL Creatine Kinase (55-170) U/L 01/05/18 01/06/18 01/06/18 Range/Units 20:57 05:57 05:57 WBC 23.3 H (3.8-10.6) k/uL Hgb 12.5 L (13.0-17.5) gm/dL Neutrophils # 20.5 H (1.3-7.7) k/uL Monocytes # 1.1 H (0-1.0) k/uL APTT (22.0-30.0) sec BUN 79 H (9-20) mg/dL Creatinine 2.21 H (0.66-1.25) mg/dL Glucose 193 H (74-99) mg/dL POC Glucose (mg/dL) 181 H (75-99) mg/dL Creatine Kinase 688 H (55-170) U/L 01/06/18 Range/Units 06:17 WBC (3.8-10.6) k/uL Hgb (13.0-17.5) gm/dL Neutrophils # (1.3-7.7) k/uL Monocytes # (0-1.0) k/uL APTT (22.0-30.0) sec BUN (9-20) mg/dL Creatinine (0.66-1.25) mg/dL Glucose (74-99) mg/dL POC Glucose (mg/dL) 173 H (75-99) mg/dL Creatine Kinase (55-170) U/L Microbiology - Last 24 Hours (Table) 01/03/18 09:21 Blood Culture - Preliminary Blood No Growth after 48 hours Assessment and Plan Assessment: Impression: 1 acute chest pain with abnormal troponin, possible acute coronary syndrome. 2 aspiration pneumonia. On proper antibiotics. 3 history of metastatic melanoma undergoing chemotherapy 4 acute on chronic kidney injury, patient is known to have chronic kidney disease stage III. 5 multiple comorbidities including hypertension, type 2 diabetes, severe hearing loss, underlying COPD. Remote smoking history. Recommendation: Continue present treatment plan including bronchodilators/DuoNeb , Pulmicort, Perforomist, methylprednisolone, and Zosyn. We'll continue to follow. Time with Patient: Less than 30
[2018-01-06] MEDS ORDERED: PROPOFOL 10 MG/ML 20 ML VIAL IV ONE (11:10)
[2018-01-06] MEDS ORDERED: IV FLUID CONTINUATION 400 ML IV ONE (11:14)
--- NOTE | 2018-01-06 12:13 | P.PCN ---
Date of Procedure: 01/06/18 Procedure(s) Performed: BRIEF HISTORY: Patient is a 82-year-old, pleasant, white male, admitted to the hospital with chest pain, shortness of breath and aspiration pneumonia.. For severe bouts. He had a barium esophagogram done that showed evidence of possible distal esophageal stricture stasis of the contrast in the midesophagus and hence he scheduled for an upper endoscopy to evaluate this further. Patient has been having decreased oral intake and intermittent dysphagia to solids PROCEDURE PERFORMED: Esophagogastroduodenoscopy. PREOPERATIVE DIAGNOSIS: Dysphagia/GERD. IV sedation per anesthesia. PROCEDURE: After informed consent was obtained, the patient was brought into the endoscopy unit. IV sedation was administered by Anesthesia under continuous monitoring. Initially the Olympus GIF-140 video endoscope was inserted into the mouth. Esophagus intubated without any difficulty. It was gradually advanced into the stomach and duodenum and carefully examined. The bulb and the second part of the duodenum appeared normal. The scope at this time was withdrawn to the stomach, adequately insufflated with air, and upon careful examination, mucosa of the antrum, body, had diffuse gastritis. The cardia and the fundus appeared normal. The scope was then withdrawn into the esophagus. The GE junction was located at 39 cm from the incisors. The esophagus appeared normal. There were no erosions or ulcerations seen and the patient tolerated the procedure well. IMPRESSION: 1. Normal-appearing esophagus with no evidence of esophagitis or esophageal stricture. 2. Mild diffuse gastritis. RECOMMENDATIONS: The findings of this examination were discussed with the patient as well as his family. Advance diet as tolerated. Continue Protonix for GERD symptoms.
[2018-01-06 12:50] LABS: Glucose,Whole Blood 199 mg/dL (75-99)
[2018-01-06 17:05] LABS: Glucose,Whole Blood 192 mg/dL (75-99)
[2018-01-06] MEDS: predniSONE 20 MG TAB PO SCH (17:24)
[2018-01-06 21:42] LABS: Glucose,Whole Blood 280 mg/dL (75-99)
[2018-01-06] MEDS: ATORVASTATIN 80 MG TAB PO SCH (22:10)
[2018-01-06] MEDS: INSULIN DETEMIR 100 UNIT/ML 10 ML VIAL SQ SCH (22:43)
[2018-01-07] MEDS: PIPERACILLIN-TAZOBACTAM 3.375 GM in DEXTROSE/WATER 1 50ML.BAG IVPB SCH ×2 (01:13→11:26)
[2018-01-07] MEDS: HEPARIN SODIUM,PORCINE 5,000 UNIT/ML 1 ML VIAL SQ SCH ×2 (01:14→09:46)
--- NOTE | 2018-01-07 05:56 | PN ---
PROGRESS NOTE DATE OF SERVICE: 01/06/2018 This 82-year-old gentleman who was admitted with COPD acute exacerbation, bibasilar pneumonia also had presbyesophagus. Dr. Jaramillo performed EGD, which did not show any evidence of stricture. The patient was closely monitored. Patient is on broad- spectrum IV antibiotics. Multiple consultants are following the patient closely. No chest pain. No palpitation. No fever. PHYSICAL EXAMINATION: On exam, alert and oriented x3. Pulse 80, blood pressure 146/75, respiration 19, temperature 97.7, pulse ox 94% on room air. HEENT: Conjunctivae normal. Oral mucosa moist. Neck is no jugular venous distention. No carotid bruit. No lymph node enlargement. CARDIOVASCULAR: S1 and S2 muffled. RESPIRATORY: Breath sounds diminished at the bases. Bilateral scattered rhonchi and crackles. ABDOMEN: Soft, nontender. NERVOUS SYSTEM: No focal deficits. LABS: WBC 23.3, hemoglobin 12.5. Creatinine is 2.21. ASSESSMENT: 1. Acute exacerbation of chronic obstructive pulmonary disease with bibasilar pneumonia possibly gram-negative, possibly aspiration. 2. Presbyesophagus on the barium swallow. No evidence of stricture on EGD. 3. Increased WBC. 4. Increased creatinine with possible acute on chronic kidney disease stage 3, baseline. 5. Troponin 0.176, indeterminate. Rule out acute non ST-segment elevation myocardial infarction. 6. Increased creatine kinase with possible rhabdomyolysis. 7. Atrial fibrillation. 8. History of chronic obstructive pulmonary disease. 9. Diabetes mellitus type 2. 10.Hypertension. 11.Hyperlipidemia. 12.History of degenerative joint disease. 13.History of melanoma. 14.History of cholecystectomy. RECOMMENDATIONS AND DISCUSSION: Recommend to continue current medications, continue symptomatic treatment. Continue with broad-spectrum IV antibiotics, bronchodilators. Will taper the steroids further and closely follow with Nephrology. IV fluids have been administered. I would also recommend to monitor creatinine closely. Otherwise, continue to monitor. Guarded prognosis because of the multiple medical issues. Further recommendations to follow. MMODL / IJN: [id number] /
[2018-01-07] MEDS: SODIUM CHLORIDE 0.9% 1,000 ML IV SCH (06:01)
[2018-01-07] MEDS: FORMOTEROL FUMARATE 20 MCG/2 ML NEBU INHALATION SCH (07:21)
[2018-01-07] MEDS: IPRATROPIUM-ALBUTEROL 3 ML NEB INHALATION SCH ×3 (07:21→15:28)
[2018-01-07] MEDS: BUDESONIDE 1 MG/2 ML NEBU INHALATION SCH (07:21)
[2018-01-07 07:31] LABS: Glucose,Whole Blood 209 mg/dL (75-99)
[2018-01-07] MEDS: predniSONE 20 MG TAB PO SCH (09:46)
[2018-01-07] MEDS: ASPIRIN 325 MG TAB PO SCH (09:47)
[2018-01-07] MEDS: PANTOPRAZOLE 40 MG/10 ML VIAL IVP SCH (09:47)
[2018-01-07] MEDS: CARVEDILOL 6.25 MG TAB PO SCH (09:47)
[2018-01-07] MEDS: CLOTRIMAZOLE 1% CREAM 15 GM TUBE TOPICAL SCH (09:48)
[2018-01-07] MEDS: PIOGLITAZONE 45 MG TAB PO SCH (09:48)
[2018-01-07] MEDS: BETAMETHASONE DIPROPIONATE 0.05% CREAM 15 GM TUBE TOPICAL SCH (09:48)
[2018-01-07] MEDS: AMMONIUM LACTATE 12% CREAM 140 GM TUBE TOPICAL SCH (09:49)
[2018-01-07] MEDS: INSULIN ASPART 100 UNIT/ML 1 ML 10 ML VIAL SQ SCH ×2 (10:21→13:03)
[2018-01-07 11:02] LABS: Basophils % (A) 0 %; Eosinophils # (A) 0.1 k/uL (0-0.7); Eosinophils % (A) 1 %; HCT 40.6 % (39.0-53.0); Lymphocytes # (A) 1.3 k/uL (1.0-4.8); Lymphocytes % (A) 6 %; MCH 29.6 pg (25.0-35.0); MCHC 32.1 g/dL (31.0-37.0); MCV 92.1 fL (80.0-100.0); Mean Platelet Volume 8.1; Monocytes # (A) 1.4 k/uL (0-1.0); Monocytes % (A) 7 %; Neutrophils # (A) 18.5 k/uL (1.3-7.7); Neutrophils % (A) 85 %; Platelet Count 448 k/uL (150-450); RBC 4.41 m/uL (4.30-5.90); RDW 14.4 % (11.5-15.5); WBC 21.7 k/uL (3.8-10.6)
[2018-01-07 11:11] LABS: Calcium 8.3 mg/dL (8.4-10.2); Potassium 4.3 mmol/L (3.5-5.1)
--- NOTE | 2018-01-07 11:51 | P.PN ---
Subjective Progress Note Date: 01/07/18 Principal diagnosis: Acute coronary syndrome, and aspiration pneumonia This is an 82-year-old white male with history of atrial fibrillation, transferred on 01/02/2018 from [facility] were in he presented with chest pain and elevated troponin level. The patient himself is a very poor historian , and he is very hard of hearing. Patient was referred to [facility], and has been inpatient since 01/02/2018. He was seen by many consultants including cardiology, internal medicine, and nephrology. Chest x- ray on admission showed mostly hypoventilatory changes, focal basilar densities and trace of effusions noted, felt to be either congestive heart failure or bibasilar pneumonia. However the clinical history is not quite suggestive of pneumonia. It is mostly suggestive of cardiac event. No cough, no fever, no chills, no hemoptysis. I reviewed the chest x-ray myself, and felt the findings are again very nonspecific. However a barium swallow was done mostly because of the concern of possible aspiration, and there was evidence of presbyesophagus with stasis of contrast within the esophagus. Hence the possibility of aspiration is very likely, and the patient is a great set up for aspiration pneumonia. He is empirically on antibiotics. Not much history could be obtained from the patient. His CBC showed leukocytosis with WBC count of 16.6. His electrolytes showed renal failure/acute kidney injury, and his troponins were significantly elevated since admission. BNP level was also elevated at 1550. Patient has been seen by cardiology on consultation. Mostly recommended conservative measures and not convinced that his elevated troponins are clinically significant. And his EKG showed nonspecific ST and T wave changes. Reevaluated today on 01/06/2018, patient is about the same. Patient is a very poor historian, very hard of hearing, in no form of respiratory distress. Labs were reviewed including CBC which showed leukocytosis with WBC count of 23.3 hemoglobin is 12.5. BUN is 79 creatinine is 2.21 which is relatively close to his baseline. On 01/07/2018 patient is seen and examined again. Denies any specific complaints, denies any worsening shortness of breath, room air pulse ox of 91%, patient is afebrile, hemodynamically stable. Denies any chest pain. Patient is status post EGD for a diagnosis of dysphagia/GERD. Lab work showed WBC of 21.7, leukocytosis is trending down, BUN is 88, and creatinine is 2.02. No new chest x-rays today, but patient feels well, lung sounds are clear, only occasional cough. No shortness of breath. Blood and urine cultures remain negative, no phlegm production. Patient continues on empiric antibiotics in the form of Zosyn. Objective - Vital Signs Vital signs: Vital Signs Temp 98.1 F 01/06/18 23:00 Pulse 80 01/07/18 11:01 Resp 17 01/06/18 23:00 BP 141/67 01/06/18 23:00 Pulse Ox 91 L 01/06/18 23:00 Intake & Output 01/06/18 01/07/18 01/07/18 18:59 06:59 18:59 Intake Total 100 Output Total 500 250 Balance -400 -250 Intake: IV 100 Output: Urine 300 250 Post Void Residual 200 Other: Voiding Method Urinal Incontinent # Voids 1 # Bowel Movements 1 - Exam General Impression: Alert and oriented, patient is hard of hearing, but denies any acute distress, HEENT: PERRLA, EOMI, no icterus, no neck masses, no JVD. No stridor. No lymphadenopathy. Cardiovascular: Irregular irregular rhythm, normal S1&S2 audible, no murmurs, rubs or gallops Chest: Lungs clear to auscultation bilaterally, no rhonchi, no wheeze, no rales Abdomen: Bowel sounds present, abdomen soft, non-tender, non-distended, no organomegaly Musculoskeletal: Pulses present and equal in all extremities, trace of peripheral edema noted. Motor: Moves all tremors grossly Neurological: CN II-XII grossly intact, extremely hard of hearing, Skin: Intact with no visualized rashes Psych: Normal affect and mood - Labs CBC & Chem 7: 01/07/18 10:33 01/07/18 10:33 Labs: Abnormal Lab Results - Last 24 Hours (Table) 01/06/18 01/06/18 01/06/18 Range/Units 12:30 16:09 21:12 WBC (3.8-10.6) k/uL Neutrophils # (1.3-7.7) k/uL Monocytes # (0-1.0) k/uL Carbon Dioxide (22-30) mmol/L BUN (9-20) mg/dL Creatinine (0.66-1.25) mg/dL Glucose (74-99) mg/dL POC Glucose (mg/dL) 199 H 192 H 280 H (75-99) mg/dL Calcium (8.4-10.2) mg/dL 01/07/18 01/07/18 01/07/18 Range/Units 07:19 10:33 10:33 WBC 21.7 H (3.8-10.6) k/uL Neutrophils # 18.5 H (1.3-7.7) k/uL Monocytes # 1.4 H (0-1.0) k/uL Carbon Dioxide 20 L (22-30) mmol/L BUN 88 H* (9-20) mg/dL Creatinine 2.02 H (0.66-1.25) mg/dL Glucose 168 H (74-99) mg/dL POC Glucose (mg/dL) 209 H (75-99) mg/dL Calcium 8.3 L (8.4-10.2) mg/dL Microbiology - Last 24 Hours (Table) 01/03/18 09:21 Blood Culture - Preliminary Blood No Growth after 72 hours Assessment and Plan Plan: Assessment: 1 acute chest pain with abnormal troponin, possible acute coronary syndrome. 2 aspiration pneumonia. On proper antibiotics. 3 history of metastatic melanoma undergoing chemotherapy 4 acute on chronic kidney injury, patient is known to have chronic kidney disease stage III. 5 multiple comorbidities including hypertension, type 2 diabetes, severe hearing loss, underlying COPD. Remote smoking history. Plan: Patient is doing well, no acute events overnight, no fever, no chills, denies any worsening shortness of breath, he is on room air, with current medical treatment, from pulmonary standpoint patient is cleared for discharge home today on oral course of antibiotics. Her remains negative. He'll need follow- up appointment with Dr. Mclean in the office within one week. I performed a history & physical examination of the patient and discussed their management with my nurse practitioner, Gay Livingston. I reviewed the nurse practitioner's note and agree with the documented findings and plan of care. Lung sounds are clear. The findings and the impression was discussed with the patient. I attest to the documentation by the nurse practitioner. Time with Patient: Less than 30
[2018-01-07 12:40] LABS: Glucose,Whole Blood 168 mg/dL (75-99)
[2018-01-07 13:11] VITALS: BP 153/70; RESP 16; TEMP 97.5
[2018-01-07 15:38] VITALS: PULSE 84
--- NOTE | 2018-01-07 16:06 | PN ---
PROGRESS NOTE Patient is seen for followup for acute kidney injury. He is currently very hard of hearing. We have to communicate by writing. Patient denies any significant complaints. He states he has been voiding well. His renal function has been improving. The steroids were changed from Solu-Medrol to prednisone. Serum creatinine is down to 2.0 from 2.2 mg/dL previously. We do not have any previous labs available for comparison. Patient is currently not on any IV fluids. On examination, blood pressure was 153/70, heart rate 76 per minute. He is afebrile. EXAMINATION OF THE HEART: S1, S2. EXAMINATION OF LUNGS: Bilateral breath sounds are heard. ABDOMEN: Soft, non-tender. Examination of lower extremities shows edema 1+ bilaterally. IT SERVICE MANAGER exam is grossly intact. Labs show sodium 137, potassium 4.3, BUN 88, serum creatinine 2.02. Hemoglobin 13.0 g/dL. ASSESSMENT: 1. Acute kidney injury, currently nonoliguric. Renal function is slightly better today. This may be close to his baseline; we do not have any previous labs available for comparison. 2. Possible chronic kidney disease secondary to nephrosclerosis and diabetic kidney disease. 3. Type 2 diabetes. 4. Chronic obstructive pulmonary disease exacerbation, currently switched from Solu- Medrol to oral prednisone. 5. Disproportionately elevated BUN secondary to steroids. PLAN: Patient is stable for discharge from nephrology standpoint. He will need to follow up as outpatient for chronic kidney disease. MMODL / IJN: [id number] /
--- NOTE | 2018-01-15 15:28 | P.DS ---
Providers Date of admission: 01/02/18 16:52 Expected date of discharge: 01/07/18 Attending physician: Karely Yen Consults: 01/02/18 16:52 Consult Physician Urgent Consulting Provider: Preston Nicole Consult Reason/Comments: nstemi Do you want consulting provider notified?: Yes 01/04/18 17:33 Consult Physician Routine Consulting Provider: Deysi Cerrato Consult Reason/Comments: copd Do you want consulting provider notified?: Yes Consult Physician Routine Consulting Provider: Yesi Downey Consult Reason/Comments: arf Do you want consulting provider notified?: Yes Primary care physician: [facility] Hospital Course: Final Diagnoses: Acute COPD exacerbation with bibasilar aspiration pneumonia Presybyesophagus per barium swallow, no evidence of stricture per EGD Acute on chronic renal failure, stage III Troponin 0.176, indeterminate, rule out acute non-STEMI, possibly related to acute renal failure Increased creatinine kinase of possible acute rhabdomyolysis Diabetes mellitus type 2 Hypertension Hyperlipidemia Metastatic melanoma, currently undergoing chemotherapy. Last dose on 12/23/2017 Agitation and combativeness. On admission. Possible delirium vs dementia with behavioral changes. Acute metabolic encephalopathy secondary to acute COPD exacerbation, renal failure and possible pneumonia Hospital course: This is an 82-year-old gentleman admitted with acute COPD exacerbation, bibasilar pneumonia,presybyesophagus. Evaluated by cardiology, pulmonary and nephrology. Echo reported normal LV function, EF 55-60%. EKG reported normal sinus rhythm with nonspecific ST-T wave changes. Troponin 0.22 , 0.17, 0.15 Underwent EGD reporting no evidence of stricture. Maintained on gentle IV fluid hydration, broad-spectrum IV antibiotics, nebulized bronchodilators, systemic steroids. Significant clinical improvement. Patient has been cleared for discharge by all consults. Patient is being discharged home in a stable condition with guarded prognosis. EXAM: GENERAL:no acute distress, awake alert and oriented. Hard of hearing. CHEST EXAMINATION: Bilateral bases Diminished with Bibasilar crackles. CARDIAC: Normal S1, S2 with no gallops. Positive systolic murmur ABDOMEN: Soft. Nontender, Bowel sounds normal. Neurologically No focal deficits noted The impression and plan of care has been dictated as directed. : I performed a history and examination of this patient, discussed the same with the dictator. I agree with the dictator's note ,documented as a scribe. Any additional findings or plans will be noted. Time taken: 35 minutes Patient Condition at Discharge: Stable Plan - Discharge Summary Discharge Rx Participant: Yes New Discharge Prescriptions: New Amoxicillin/Potassium Clav [Augmentin 875-125 Tablet] 1 tab PO Q12HR #10 tab Ipratropium-Albuterol Nebulize [Duoneb 0.5 mg-3 mg/3 ml Soln] 3 ml INHALATION RT-QID #120 ampul.frank Pantoprazole Sodium [Protonix] 40 mg PO DAILY #30 tablet. Aspirin EC [Ecotrin Low Dose] 81 mg PO DAILY #1 tab Continue Fluocinonide 0.05% [Lidex 0.05% cream] 1 applic TOPICAL BID Ketoconazole 2% Cream [Nizoral 2%] 1 applic TOPICAL BID Ammonium Lactate Cream [Lac-Hydrin 12% Cream] 1 applic TOPICAL DAILY PRN PRN Reason: Dry Skin Multivitamins, Thera [Multivitamin (formulary)] 1 tab PO DAILY glipiZIDE [Glucotrol] 10 mg PO BID Pioglitazone [Actos] 45 mg PO DAILY Acetaminophen [Tylenol] 500 mg PO TID PRN PRN Reason: Pain Or Fever > 100.5 Atorvastatin Calcium [Lipitor] 80 mg PO HS Furosemide [Lasix] 40 mg PO DAILY Carvedilol [Coreg] 6.25 mg PO BID-W/MEALS Insulin Glargine,Hum.rec.anlog [Basaglar Kwikpen U-100] 35 unit SQ HS Discontinued Sildenafil Citrate [Viagra] 100 mg PO ONCE No Action predniSONE See Taper PO DAILY Budesonide/Formoterol Fumarate [Symbicort 160-4.5 Mcg Inhaler] 2 puff INHALATION RT-BID Discharge Medication List Acetaminophen [Tylenol] 500 mg PO TID PRN 01/02/18 [History] Ammonium Lactate Cream [Lac-Hydrin 12% Cream] 1 applic TOPICAL DAILY PRN [History] Atorvastatin Calcium [Lipitor] 80 mg PO HS 01/02/18 [History] Carvedilol [Coreg] 6.25 mg PO BID-W/MEALS 01/02/18 [History] Fluocinonide 0.05% [Lidex 0.05% cream] 1 applic TOPICAL BID 01/02/18 [History] Furosemide [Lasix] 40 mg PO DAILY 01/02/18 [History] Insulin Glargine,Hum.rec.anlog [Basaglar Kwikpen U-100] 35 unit SQ HS 01/02/18 [ History] Ketoconazole 2% Cream [Nizoral 2%] 1 applic TOPICAL BID 01/02/18 [History] Multivitamins, Thera [Multivitamin (formulary)] 1 tab PO DAILY 01/02/18 [History ] Pioglitazone [Actos] 45 mg PO DAILY 01/02/18 [History] glipiZIDE [Glucotrol] 10 mg PO BID 01/02/18 [History] Amoxicillin/Potassium Clav [Augmentin 875-125 Tablet] 1 tab PO Q12HR #10 tab 08/21 [Rx] Aspirin EC [Ecotrin Low Dose] 81 mg PO DAILY #1 tab 01/07/18 [Rx] Ipratropium-Albuterol Nebulize [Duoneb 0.5 mg-3 mg/3 ml Soln] 3 ml INHALATION RT -QID #120 ampul.neb 01/07/18 [Rx] Pantoprazole Sodium [Protonix] 40 mg PO DAILY #30 tablet. 01/07/18 [Rx] Budesonide/Formoterol Fumarate [Symbicort 160-4.5 Mcg Inhaler] 2 puff INHALATION RT-BID 01/12/18 [History] predniSONE See Taper PO DAILY 01/12/18 [History] Follow up Appointment(s)/Referral(s): Deysi Cerrato MD [STAFF PHYSICIAN] - 01/16/18 1:30 pm Crys Jaramillo MD [STAFF PHYSICIAN] - As Needed Bucky Markham DO [STAFF PHYSICIAN] - 1 Week [facility]inic [Primary Care Provider] - 3 Days Ambulatory/Diagnostic Orders: Complete Blood Count w/diff [LAB.AMB] Time Frame: 3 Days, Location: None Selected Activity/Diet/Wound Care/Special Instructions: Dr. Singh- [facility]- office will ynes you to make a followup appt. 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 Discharge Disposition: HOME SELF-CARE
== END 2018-01-07 15:46 | disposition home or self-care (01) | DRG 177 ==
LOC: EC 14:53 → 6SEL 16:52 → 4MS4W 01-06 18:11
PROVIDERS: ADMIT Internal Medicine; ATTEND Internal Medicine
PROC: 0DJ08ZZ Inspection of Upper Intestinal Tract, Via Natural or Artificial Opening Endoscopic (ICD-10-PCS; principal; 2018-01-06 10:00)
DX: J69.0 Pneumonitis due to inhalation of food and vomit (principal); I21.4 Non-ST elevation (NSTEMI) myocardial infarction; G93.41 Metabolic encephalopathy; N17.9 Acute kidney failure, unspecified; M62.82 Rhabdomyolysis; J44.1 Chronic obstructive pulmonary disease with (acute) exacerbation; C79.9 Secondary malignant neoplasm of unspecified site; J98.11 Atelectasis; I13.0 Hypertensive heart and chronic kidney disease with heart failure and stage 1 through stage 4 chronic kidney disease, or unspecified chronic kidney disease; E11.65 Type 2 diabetes mellitus with hyperglycemia; E11.22 Type 2 diabetes mellitus with diabetic chronic kidney disease; R13.10 Dysphagia, unspecified; C43.9 Malignant melanoma of skin, unspecified; N18.3 Chronic kidney disease, stage 3 (moderate); F03.90 Unspecified dementia, unspecified severity, without behavioral disturbance, psychotic disturbance, mood disturbance, and anxiety; I48.0 Paroxysmal atrial fibrillation; I50.9 Heart failure, unspecified; E78.5 Hyperlipidemia, unspecified; K22.8 Other specified diseases of esophagus; L80 Vitiligo; K21.9 Gastro-esophageal reflux disease without esophagitis; E78.00 Pure hypercholesterolemia, unspecified; K29.70 Gastritis, unspecified, without bleeding; T38.0X5A Adverse effect of glucocorticoids and synthetic analogues, initial encounter; H26.9 Unspecified cataract; M19.91 Primary osteoarthritis, unspecified site; H91.93 Unspecified hearing loss, bilateral; Z79.84 Long term (current) use of oral hypoglycemic drugs; Z79.82 Long term (current) use of aspirin; Z79.4 Long term (current) use of insulin; Z79.899 Other long term (current) drug therapy; Z90.49 Acquired absence of other specified parts of digestive tract; Z87.891 Personal history of nicotine dependence; Z82.0 Family history of epilepsy and other diseases of the nervous system; Z80.8 Family history of malignant neoplasm of other organs or systems
CPT/HCPCS: 43235; 71045; 71046; 74220; 76770; 80048; 80061; 81001; 82550; 82553; 83036; 83735; 83880; 84484; 85025; 85027; 85730; 87040; 87086; 93005; 93306; 94640; 94760; 96365; 96366; 96375; 99285

== ENCOUNTER 2018-01-11 16:23 | Inpatient (IN) | payer OTHER, MEDICARE ==
[2018-01-11] MEDS ORDERED: ASPIRIN 81 MG PO STA (17:05)
--- NOTE | 2018-01-11 17:19 | ED ---
General Adult HPI - General Chief complaint: Neuro Symptoms/Deficit Stated complaint: Double Vision, cannot focus Time Seen by Provider: 01/11/18 16:53 Source: patient, family Mode of arrival: wheelchair Limitations: no limitations - History of Present Illness Initial comments: Patient is an 82-year-old male who presents with a chief complaint of blurry vision, increased fatigue since recent discharge from the hospital where he was treated for an STEMI, and bilateral pneumonia. States that after leaving the hospital he initially felt well however 2 days ago he began having symptoms of blurry vision. His who accompanies him to the emergency department today is concerned that the right side of his face is drooping. The patient is extremely hard of hearing loss limiting thoroughness of history. Patient does not have any localizing symptoms. He denies chest pain, shortness of breath, abdominal pain. - Related Data Home Medications Medication Instructions Recorded Confirmed Acetaminophen [Tylenol] 500 mg PO TID PRN 01/02/18 01/02/18 Ammonium Lactate Cream [Lac-Hydrin 1 applic TOPICAL DAILY 01/02/18 01/02/18 12% Cream] Atorvastatin Calcium [Lipitor] 80 mg PO HS 01/02/18 01/02/18 Carvedilol [Coreg] 6.25 mg PO BID-W/MEALS 01/02/18 01/02/18 Fluocinonide 0.05% [Lidex 0.05% 1 applic TOPICAL BID 01/02/18 01/02/18 cream] Furosemide [Lasix] 40 mg PO DAILY 01/02/18 01/02/18 Insulin Glargine,Hum.rec.anlog 35 unit SQ HS 01/02/18 01/02/18 [Basaglar Kwikpen U-100] Ketoconazole 2% Cream [Nizoral 2%] 1 applic TOPICAL BID 01/02/18 01/02/18 Multivitamins, Thera [Multivitamin 1 tab PO DAILY 01/02/18 01/02/18 (formulary)] Pioglitazone [Actos] 45 mg PO DAILY 01/02/18 01/02/18 glipiZIDE [Glucotrol] 10 mg PO BID 01/02/18 01/02/18 methylPREDNISolone [Medrol Dose 4 mg PO DIRECTED 01/02/18 01/02/18 Pack] Previous Rx's Medication Instructions Recorded Amoxicillin/Potassium Clav 1 tab PO Q12HR #10 tab 01/07/18 [Augmentin 875-125 Tablet] Aspirin EC [Ecotrin Low Dose] 81 mg PO DAILY #1 tab 01/07/18 Budesonide-Formot 160-4.5 Mcg 2 puff INHALATION BID #1 inhaler 01/07/18 [Symbicort 160-4.5 Mcg Inhaler] Ipratropium-Albuterol Nebulize 3 ml INHALATION RT-QID #120 01/07/18 [Duoneb 0.5 mg-3 mg/3 ml Soln] ampul.neb Pantoprazole Sodium [Protonix] 40 mg PO DAILY #30 tablet. 01/07/18 predniSONE 10 mg PO DIRECTED #30 tab 01/07/18 Allergies Allergy/AdvReac Type Severity Reaction Status Date / Time No Known Allergies Allergy Verified 01/11/18 16:31 Review of Systems ROS Statement: Those systems with pertinent positive or pertinent negative responses have been documented in the HPI. ROS Other: All systems not noted in ROS Statement are negative. Constitutional: Reports: weakness Neurological: Reports: weakness Past Medical History Past Medical History: Atrial Fibrillation, Cancer, COPD, Diabetes Mellitus, Hearing Disorder / Deafness, Hyperlipidemia, Hypertension, Memory Impairment, Osteoarthritis (OA), Skin Disorder Additional Past Medical History / Comment(s): melanoma- has had 2 chemo treatments at [facility] in [place] stated next one due 01-07-18. 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 Past Anesthesia/Blood Transfusion Reactions: No Reported Reaction Past Psychological History: No Psychological Hx Reported Smoking Status: Former smoker Past Alcohol Use History: None Reported Past Drug Use History: None Reported - Past Family History Mother Family Medical History: Neurologic Disorder Additional Family Medical History / Comment(s): parkinsons Father Family Medical History: Cancer Additional Family Medical History / Comment(s): spinal cancer General Exam Limitations: no limitations General appearance: alert, in no apparent distress Head exam: Present: atraumatic, normocephalic Eye exam: Present: normal appearance, PERRL ENT exam: Present: mucous membranes moist Neck exam: Present: normal inspection Respiratory exam: Present: rales (Bilaterally). Absent: respiratory distress Cardiovascular Exam: Present: regular rate, normal rhythm GI/Abdominal exam: Present: soft. Absent: distended, tenderness Rectal exam: Present: deferred Extremities exam: Present: normal inspection. Absent: pedal edema Back exam: Present: normal inspection Neurological exam: Present: alert, oriented X3, abnormal gait (Patient is able to handle it with assistance, he appears unsteady.) Psychiatric exam: Present: normal affect, normal mood Skin exam: Present: warm, dry, intact Course Vital Signs 01/11/18 01/11/18 01/11/18 16:30 19:00 20:33 Temperature 97.9 F Pulse Rate 91 90 82 Respiratory 20 20 20 Rate Blood Pressure 151/83 151/66 148/71 O2 Sat by Pulse 96 99 99 Oximetry Medical Decision Making - Medical Decision Making Patient is an 82-year-old male presents with a chief complaint of weakness, somnolence, and blurry vision. On initial evaluation, vital signs are stable, patient is in no acute distress. Patient is very hard of hearing but is limiting history. He is able to answer questions appropriately, he is alert and attentive to what is happening in the room. There is mild facial droop on the right side however the area also appears edematous. Patient does not have any neurologic findings, cranial nerves are intact. Patient to be evaluated with basic labs including troponin, lactic acid, computed tomography scan of the head without contrast. Patient is not a TPA candidate, even though strobes thought to be less likely given her exam, he is certainly outside of the TPA window. Patient will also be evaluated with cardiac labs and repeat chest x- ray. Review of patient's recent hospitalization shows that he was treated for an STEMI, bilateral pneumonia. Patient's echo was reviewed from his recent hospitalization which showed an ejection fraction between 50 and 60% though the study was noted to be limited. 9:12 PM Lab evaluation of this patient shows no elevated troponin at 0.097, patient is mildly hypercapnic, with a white blood cell count of 21,000 which may be secondary to steroids versus infection. Chest x-ray shows a retrocardiac pneumonia which is new when compared to previous x-rays. Patient was started on hospital-acquired antibiotics. On reevaluation, the patient appears more awake, vital signs are within normal limits. Case discussed with Dr. Yen who excepts admission with consult to Dr. Nelson, and Dr. Gomez. Patient updated and results and care plan, he is agreeable. - Lab Data Result diagrams: 01/11/18 19:00 01/11/18 19:00 Lab Results 01/11/18 01/11/18 01/11/18 Range/Units 19:00 19:00 19:00 WBC 21.6 H (3.8-10.6) k/uL RBC 4.95 (4.30-5.90) m/uL Hgb 14.2 (13.0-17.5) gm/dL Hct 46.4 (39.0-53.0) % MCV 93.7 (80.0-100.0) fL MCH 28.7 (25.0-35.0) pg MCHC 30.6 L (31.0-37.0) g/dL RDW 14.3 (11.5-15.5) % Plt Count 445 (150-450) k/uL Neutrophils % 85 % Lymphocytes % 7 % Monocytes % 6 % Eosinophils % 1 % Basophils % 0 % Neutrophils # 18.3 H (1.3-7.7) k/uL Lymphocytes # 1.4 (1.0-4.8) k/uL Monocytes # 1.3 H (0-1.0) k/uL Eosinophils # 0.3 (0-0.7) k/uL Basophils # 0.1 (0-0.2) k/uL PT (9.0-12.0) sec INR (<1.2) VBG pH 7.33 (7.31-7.41) VBG pCO2 54 H (37-51) mmHg VBG HCO3 28 (24-28) mmol/L Sodium 138 (137-145) mmol/L Potassium 4.7 (3.5-5.1) mmol/L Chloride 101 (98-107) mmol/L Carbon Dioxide 28 (22-30) mmol/L Anion Gap 9 mmol/L BUN 71 H (9-20) mg/dL Creatinine 1.69 H (0.66-1.25) mg/dL Est GFR (CKD-EPI)AfAm 43 (>60 ml/min/1.73 sqM) Est GFR (CKD-EPI)NonAf 37 (>60 ml/min/1.73 sqM) Glucose 287 H (74-99) mg/dL Plasma Lactic Acid Beny (0.7-2.0) mmol/L Calcium 9.6 (8.4-10.2) mg/dL Magnesium 2.3 (1.6-2.3) mg/dL Total Bilirubin 0.8 (0.2-1.3) mg/dL AST 56 (17-59) U/L ALT 155 H (21-72) U/L Alkaline Phosphatase 68 (38-126) U/L Troponin I (0.000-0.034) ng/mL NT-Pro-B Natriuret Pep pg/mL Total Protein 6.3 (6.3-8.2) g/dL Albumin 3.5 (3.5-5.0) g/dL 01/11/18 01/11/18 01/11/18 Range/Units 19:00 19:00 19:00 WBC (3.8-10.6) k/uL RBC (4.30-5.90) m/uL Hgb (13.0-17.5) gm/dL Hct (39.0-53.0) % MCV (80.0-100.0) fL MCH (25.0-35.0) pg MCHC (31.0-37.0) g/dL RDW (11.5-15.5) % Plt Count (150-450) k/uL Neutrophils % % Lymphocytes % % Monocytes % % Eosinophils % % Basophils % % Neutrophils # (1.3-7.7) k/uL Lymphocytes # (1.0-4.8) k/uL Monocytes # (0-1.0) k/uL Eosinophils # (0-0.7) k/uL Basophils # (0-0.2) k/uL PT 10.2 (9.0-12.0) sec INR 1.0 (<1.2) VBG pH (7.31-7.41) VBG pCO2 (37-51) mmHg VBG HCO3 (24-28) mmol/L Sodium (137-145) mmol/L Potassium (3.5-5.1) mmol/L Chloride (98-107) mmol/L Carbon Dioxide (22-30) mmol/L Anion Gap mmol/L BUN (9-20) mg/dL Creatinine (0.66-1.25) mg/dL Est GFR (CKD-EPI)AfAm (>60 ml/min/1.73 sqM) Est GFR (CKD-EPI)NonAf (>60 ml/min/1.73 sqM) Glucose (74-99) mg/dL Plasma Lactic Acid Beny 1.4 (0.7-2.0) mmol/L Calcium (8.4-10.2) mg/dL Magnesium (1.6-2.3) mg/dL Total Bilirubin (0.2-1.3) mg/dL AST (17-59) U/L ALT (21-72) U/L Alkaline Phosphatase (38-126) U/L Troponin I (0.000-0.034) ng/mL NT-Pro-B Natriuret Pep 412 pg/mL Total Protein (6.3-8.2) g/dL Albumin (3.5-5.0) g/dL 01/11/18 Range/Units 19:00 WBC (3.8-10.6) k/uL RBC (4.30-5.90) m/uL Hgb (13.0-17.5) gm/dL Hct (39.0-53.0) % MCV (80.0-100.0) fL MCH (25.0-35.0) pg MCHC (31.0-37.0) g/dL RDW (11.5-15.5) % Plt Count (150-450) k/uL Neutrophils % % Lymphocytes % % Monocytes % % Eosinophils % % Basophils % % Neutrophils # (1.3-7.7) k/uL Lymphocytes # (1.0-4.8) k/uL Monocytes # (0-1.0) k/uL Eosinophils # (0-0.7) k/uL Basophils # (0-0.2) k/uL PT (9.0-12.0) sec INR (<1.2) VBG pH (7.31-7.41) VBG pCO2 (37-51) mmHg VBG HCO3 (24-28) mmol/L Sodium (137-145) mmol/L Potassium (3.5-5.1) mmol/L Chloride (98-107) mmol/L Carbon Dioxide (22-30) mmol/L Anion Gap mmol/L BUN (9-20) mg/dL Creatinine (0.66-1.25) mg/dL Est GFR (CKD-EPI)AfAm (>60 ml/min/1.73 sqM) Est GFR (CKD-EPI)NonAf (>60 ml/min/1.73 sqM) Glucose (74-99) mg/dL Plasma Lactic Acid Beny (0.7-2.0) mmol/L Calcium (8.4-10.2) mg/dL Magnesium (1.6-2.3) mg/dL Total Bilirubin (0.2-1.3) mg/dL AST (17-59) U/L ALT (21-72) U/L Alkaline Phosphatase (38-126) U/L Troponin I 0.097 H* (0.000-0.034) ng/mL NT-Pro-B Natriuret Pep pg/mL Total Protein (6.3-8.2) g/dL Albumin (3.5-5.0) g/dL Disposition Clinical Impression: HCAP (healthcare-associated pneumonia), Weakness, Hypercapnia, Leukocytosis Disposition: ADMITTED IP TO THIS HOSP Condition: Good Referrals: [facility],Clinic [Primary Care Provider] - 1-2 days - Out of Hospital Transfer - Req. Specs Out of Hospital Transfer - Requested Specifics: Telemetry Unit
--- NOTE | 2018-01-11 18:36 | XR ---
EXAMINATION TYPE: XR chest 2V DATE OF EXAM: 01/11/2018 COMPARISON: 01/03/2018 INDICATION: Pain TECHNIQUE: Frontal and lateral views of the chest are obtained. FINDINGS: The heart size is normal. The pulmonary vasculature is normal. There is a posterior right infiltrate. Correlate for pneumonia. Follow-up is recommended.. Port is o danilo the right chest with the tip in superior vena cava region. IMPRESSION: 1. Right lower lobe consolidation adjacent to the diaphragm. Correlate for pneumonia. Follow-up is re commended.
--- NOTE | 2018-01-11 18:57 | CT ---
EXAMINATION TYPE: CT brain wo con DATE OF EXAM: 01/11/2018 COMPARISON: None INDICATION: pain DLP: 772 mGycm, Automated exposure control for dose reduction was used. CONTRAST: None CT of the brain is performed utilizing 3 mm thick sections through the posterior fossa and 3 mm thick sections through the remaining calvarium. Study is performed within 24 hours of arrival to the hosp ital. No abnormal hyperdensity is present to suggest an acute intracranial hemorrhage. No mass lesion is evident. No acute infarcts are evident. Periventricular white matter hypodensity is present, likely on the bas is of chronic white matter ischemic changes. Ventricles and sulci are appropriate for the patient age. Paranasal sinuses and mastoid air cells within the hetxi-ve-ouuo are clear. IMPRESSIONS: 1. Chronic appearing periventricular white matter ischemic type changes and age-related atrophy
[2018-01-11 19:24] LABS: VBG PH 7.33 (7.31-7.41)
[2018-01-11 19:27] LABS: Basophils # (A) 0.1 k/uL (0-0.2); Basophils % (A) 0 %; Eosinophils # (A) 0.3 k/uL (0-0.7); Eosinophils % (A) 1 %; HCT 46.4 % (39.0-53.0); HGB 14.2 gm/dL (13.0-17.5); Lymphocytes # (A) 1.4 k/uL (1.0-4.8); Lymphocytes % (A) 7 %; MCH 28.7 pg (25.0-35.0); MCHC 30.6 g/dL (31.0-37.0); MCV 93.7 fL (80.0-100.0); Mean Platelet Volume 7.9; Monocytes # (A) 1.3 k/uL (0-1.0); Monocytes % (A) 6 %; Neutrophils # (A) 18.3 k/uL (1.3-7.7); Neutrophils % (A) 85 %; Platelet Count 445 k/uL (150-450); RBC 4.95 m/uL (4.30-5.90); RDW 14.3 % (11.5-15.5); WBC 21.6 k/uL (3.8-10.6)
[2018-01-11 19:34] LABS: Prothrombin Time 10.2 sec (9.0-12.0)
[2018-01-11 19:35] LABS: Albumin 3.5 g/dL (3.5-5.0); Calcium 9.6 mg/dL (8.4-10.2); Magnesium 2.3 mg/dL (1.6-2.3); Potassium 4.7 mmol/L (3.5-5.1); Total Bilirubin 0.8 mg/dL (0.2-1.3); Total Protein 6.3 g/dL (6.3-8.2)
[2018-01-11] MEDS ORDERED: CEFEPIME 2 GM in SODIUM CHLORIDE 0.9% 50 ML IVPB STA (19:55)
[2018-01-11] MEDS ORDERED: VANCOMYCIN 2,000 MG in SODIUM CHLORIDE 0.9% 500 ML IVPB STA (19:55)
[2018-01-11] MEDS ORDERED: NALOXONE 0.4 MG/ML 1 ML VIAL IV PRN (21:02)
[2018-01-11] MEDS ORDERED: SODIUM CHLORIDE 0.9% 1,000 ML IV ONE (21:08)
[2018-01-11 23:37] LABS: Amorphous Sediment,Urine Rare /hpf; Appearance,Urine Clear (Clear); Bacteria,Urine Rare /hpf; Bilirubin,Urine Negative (Negative); Blood,Urine Moderate (Negative); Color,Urine Yellow; Glucose,Urine (UA) 3+ (Negative); Hyaline Casts,Urine 6 /lpf (0-2); Ketones,Urine Negative (Negative); Leukocyte Esterase,Urine Negative (Negative); Mucus,Urine Rare /hpf; Nitrite,Urine Negative (Negative); PH, Urine 5.5 (5.0-8.0); Protein,Urine 2+ (Negative); RBC,Urine <1 /hpf (0-5); Specific Gravity,Urine 1.014 (1.001-1.035); Squamous Epithelial Cell,Urine <1 /hpf (0-4); Urobilinogen,Urine <2.0 mg/dL (<2.0); WBC,Urine 1 /hpf (0-5)
--- NOTE | 2018-01-11 23:44 | HP ---
HISTORY AND PHYSICAL CHIEF COMPLAINTS: Weakness, right facial droop and cough. HISTORY OF PRESENT ILLNESS: This 82-year-old gentleman with a past medical history of multiple medical problems including atrial fibrillation, COPD, diabetes, hypertension, hyperlipidemia being followed by Dr. Montemayor in the [facility] in the outpatient, recently admitted to [facility] with non ST elevation myocardial infarction as well as bilateral pneumonia. The patient also had a esophagus in the barium swallow, but EGD showed no stricture. The patient improved significantly. The patient went home but currently the noted some drooping on the right side as well as generalized weakness also some blurry vision, and the patient came to [facility]. The new chest x-ray showed retrocardiac pneumonia suspected. Patient admitted for further evaluation and treatment. There is no history of fever, rigors. No headache, loss of consciousness, seizures. PAST MEDICAL HISTORY: Patient extremely hard of hearing. Past history atrial ablation COPD diabetes type 2, hypertension, history of recent non ST elevation myocardial infarction and pneumonia. MEDICATIONS: Prior to admission include home medications are reviewed and include: 1. Prednisone 10 mg p.r.n. 2. Medrol Dosepak. 3. Glucotrol 10 mg p.o. b.i.d. 4. Actos 45 mg p.o. daily. 5. Protonix 40 mg. 6. Multivitamins 1 p.o. daily. 7. Nasarel 2% b.i.d. 8. DuoNeb q.i.d. 10.Lasix 40 mg b.i.d. 11.Lidex 0.05% topically b.i.d. 12.Coreg 6.25 mg b.i.d. with meals. 13.Symbicort-12.5 two puffs b.i.d. 14.Lipitor 80 mg q.h.s. 15.Ecotrin 81 mg p.o. daily. 16.Augmentin 875 mg 1 p.o. b.i.d. 17.Lac-Hydrin 1 application daily. 18.Tylenol 500 mg t.i.d. p.r.n. ALLERGIES: None. FAMILY HISTORY: History of Parkinson's in the family. SOCIAL HISTORY: Previous history of smoking. No history of current smoking or alcohol. REVIEW OF SYSTEMS: ENT: Diminished hearing and vision. CARDIOVASCULAR: As mentioned earlier. RESPIRATORY: As mentioned earlier. GI: No nausea. : No dysuria. NERVOUS SYSTEM: As mentioned earlier. MUSCULOSKELETAL: As mentioned earlier. ENDOCRINE: As mentioned earlier. CONSTITUTIONAL: ntd PSYCH: As mentioned earlier. PHYSICAL EXAMINATION: Alert, oriented x3. blood pressure 151/60, respiration 18, temperature 97.8, pulse ox 98% room air. HEENT: Conjunctivae normal. Oral mucosa moist. NECK: No jugular venous distention. No lymph node enlargement. CARDIOVASCULAR: S1, S2/ RESPIRATORY: Diminished breath sounds at the bases. A few scattered rhonchi and crackles. ABDOMEN: Soft, nontender. LEGS: Minimal bilateral leg edema. NERVOUS SYSTEM: Higher functions as mentioned. Moves all 4 limbs. Diffuse weakness. SKIN: No rash. LAB STUDIES: WBC 21.6 and creatinine 1.69. Troponin 0.097. ASSESSMENT: 1. Weakness of the right side of the body and drooping. Possible acute transient ischemic attack. 2. Possible left lower lobe pneumonia. 3. Increased WBC. 4. Increased creatinine with chronic kidney disease stage 3. 5. History of recent acute non ST elevation myocardial infarction. 6. History of recent bibasilar pneumonia, possibly gram-negative. 7. Chronic obstructive pulmonary disease exacerbation. 8. 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 9. Atrial fibrillation, chronic. 10.Chronic obstructive pulmonary disease. 11.Diabetes mellitus type 2. 12.Hypertension. 13.Hyperlipidemia. 14.History of degenerative joint disease. 15.History of cholecystectomy. RECOMMENDATION AND DISCUSSION: In this 82-year-old gentleman who presented with multiple complex medical issues , we will monitor the patient closely, continue the current management, continue symptomatic treatment. I recommend empiric antibiotics. Neurology consult and neuro checks. Neurology evaluation. The initial brain CT scan did not show any acute abnormality. However, will continue to monitor. Prognosis guarded. Further recommendations. MMODL / IJN: [id number] / [facility]
[2018-01-12 00:40] LABS: Creatine Kinase MB 53.9 ng/mL (0.0-2.4)
[2018-01-12 00:43] LABS: Troponin I 0.099 ng/mL (0.000-0.034)
[2018-01-12] MEDS: CEFEPIME 2 GM in SODIUM CHLORIDE 0.9% 50 ML IVPB SCH ×3 (05:38→20:29)
[2018-01-12 05:55] LABS: Glucose,Whole Blood 237 mg/dL (75-99)
[2018-01-12] MEDS: CARVEDILOL 6.25 MG TAB PO SCH ×2 (06:24→16:16)
[2018-01-12] MEDS: INSULIN ASPART 100 UNIT/ML 1 ML 10 ML VIAL SQ SCH ×4 (06:24→20:47)
[2018-01-12 06:31] LABS: Basophils % (A) 0 %; Eosinophils # (A) 0.4 k/uL (0-0.7); Eosinophils % (A) 2 %; HCT 47.3 % (39.0-53.0); HGB 14.9 gm/dL (13.0-17.5); Lymphocytes # (A) 1.4 k/uL (1.0-4.8); Lymphocytes % (A) 7 %; MCH 29.6 pg (25.0-35.0); MCHC 31.5 g/dL (31.0-37.0); MCV 94.1 fL (80.0-100.0); Mean Platelet Volume 8.2; Monocytes # (A) 1.1 k/uL (0-1.0); Monocytes % (A) 6 %; Neutrophils # (A) 16.3 k/uL (1.3-7.7); Neutrophils % (A) 84 %; Platelet Count 377 k/uL (150-450); RBC 5.02 m/uL (4.30-5.90); RDW 14.1 % (11.5-15.5); WBC 19.5 k/uL (3.8-10.6)
[2018-01-12 06:46] LABS: Magnesium 2.2 mg/dL (1.6-2.3); Potassium 4.8 mmol/L (3.5-5.1)
[2018-01-12 07:01] LABS: Creatine Kinase MB 58.6 ng/mL (0.0-2.4)
--- NOTE | 2018-01-12 08:22 | US ---
EXAMINATION TYPE: US carotid duplex BILAT DATE OF EXAM: 01/12/2018 COMPARISON: NONE CLINICAL HISTORY: stroke. weakness EXAM MEASUREMENTS: RIGHT: Peak Systolic Velocity (PSV) cm/sec ----- Right CCA: 65.1 ----- Right ICA: 96.4 ----- Right ECA: 114.6 ICA/CCA ratio: 1.5 RIGHT: End Diastole cm/sec ----- Right CCA: 11.6 ----- Right ICA: 26.0 ----- Right ECA: 0.0 LEFT: Peak Systolic Velocity (PSV) cm/sec ----- Left CCA: 109.7 ----- Left ICA: 129.1 ----- Left ECA: 111.3 ICA/CCA ratio: 1.2 LEFT: End Diastole cm/sec ----- Left CCA: 9.5 ----- Left ICA: 28.9 ----- Left ECA: 0.0 VERTEBRALS (direction of flow): Right Vertebral: Antegrade Left Vertebral: Antegrade Rhythm: Normal Mild plaque bilateral bifurcations. Tortuous left ICA. No evidence of significant stenosis IMPRESSION: 50-69% BY DIAMETER STENOSIS OF THE PROXIMAL LEFT ICA. Criteria for Assigning % of Stenosis / Diameter reduction (Estimation based on the indirect measurements of the internal carotid artery velocities (ICA PSV). 1. Normal (no stenosis)=ICA PSV < 125 cm/s: ratio < 2.0: ICA EDV<40 cm/s. 2. Less than 50% stenosis=ICA PSV < 125 cm/s: ratio < 2.0: ICA EDV<40 cm/s. 3. 50 to 69% stenosis=ICA PSV of 125 to 230 cm/s: ration 2.0 ? 4.0: ICA EDV 40-100 cm/s. 4. Greater than 70% stenosis to near occlusion= ICA PSV > 230 cm/s: ratio > 4.0: ICA EDV > 100 cm/s. 5. Near occlusion= ICA PSV velocities may be low or undetectable: variable ratio and ICA EDV. 6. Total occlusion=unable to detect flow.
[2018-01-12] MEDS: IPRATROPIUM-ALBUTEROL 3 ML NEB INHALATION SCH ×4 (08:29→19:45)
[2018-01-12] MEDS: SYMBICORT 160-4.5 MCG INHALER INHALATION SCH ×2 (08:29→19:45)
[2018-01-12] MEDS ORDERED: AMOXIC-POT CLAV 875-125MG 1 EACH TAB PO SCH (09:00)
[2018-01-12] MEDS: ASPIRIN 81 MG PO SCH (09:19)
[2018-01-12] MEDS: predniSONE 20 MG TAB PO SCH (09:20)
[2018-01-12] MEDS: PIOGLITAZONE 45 MG TAB PO SCH (09:20)
[2018-01-12] MEDS: FUROSEMIDE 40 MG TAB PO SCH (09:22)
[2018-01-12] MEDS: glipiZIDE 10 MG TAB PO SCH ×2 (09:22→20:30)
[2018-01-12] MEDS: PANTOPRAZOLE 40 MG TABLET PO SCH (09:22)
[2018-01-12] MEDS: MULTIVITAMINS, THERA 1 EACH TAB PO SCH (09:23)
[2018-01-12 12:10] LABS: Glucose,Whole Blood 218 mg/dL (75-99)
[2018-01-12 13:01] LABS: Creatine Kinase MB 71.6 ng/mL (0.0-2.4)
[2018-01-12] MEDS: AMMONIUM LACTATE 12% CREAM 140 GM TUBE TOPICAL SCH (13:23)
[2018-01-12] MEDS: CLOTRIMAZOLE 1% CREAM 15 GM TUBE TOPICAL SCH ×2 (13:23→20:30)
[2018-01-12] MEDS: BETAMETHASONE DIPROPIONATE 0.05% CREAM 15 GM TUBE TOPICAL SCH ×2 (13:23→20:29)
--- NOTE | 2018-01-12 13:54 | P.CNPUL ---
History of Present Illness Consult date: 01/12/18 Reason for consult: pneumonia History of present illness: This 82-year-old male patient was recently discharged from the hospital and he was readmitted yesterday because of a combination of symptoms including weakness , feeling ill, difficulty in swallowing, right facial/eye droop, and for all this reasons he was brought back and he was given a diagnosis of an aspiration pneumonia in the emergency department. I concur that the patient has some difficulty swallowing as I assessed his swallow here in the hospital at the bedside. He is Nothing by mouth for now. His chest x-ray showed limited infiltration of the left lung base however I think this is atelectasis more than pneumonia. He swallow was evaluated during his last visit. He underwent a barium swallow and he was diagnosed having passed by esophagus with stasis of contrast within the esophagus. Has the possibility of aspiration was likely. The patient had also a GI evaluation with an EGD and there was no acute abnormalities noted. There is also concern that the patient is having TIA/CVA. Carotid Dopplers were done and the patient was found to have 50-69% stenosis of the left internal carotid artery. At this point in time a do not appreciate any focal neurological deficit nor there is any facial asymmetry. His motor function is symmetrical bilaterally. His speech is also the same per the family however is very hard to critically care with the patient because he has extensive hearing difficulties. The patient denies having any chest pain. He was placed on empiric antibiotic coverage with a combination of cefepime and vancomycin. He is also completing a prednisone burst taper. Note that during his last admission he was discharged home on Augmentin. He is still complaining of some fatigue. Troponin is a minimally elevated. No other issues for now. He also states that he has a history of melanoma and he is receiving systemic chemotherapy. The lesion was undergone. Resected and apparently was in the regional lymph nodes. No further details on his cancer treatment. Is complaining of pain in his neck area. Review of Systems Constitutional: Reports fatigue, Reports lethargy, Reports weakness Eyes: bilateral blurred vision, bilateral decreased vision, denies bulging eye Ears: bilateral: decreased hearing, deny: ear discharge, earache, tinnitus Ears, nose, mouth and throat: Reports dysphagia Cardiovascular: Reports decreased exercise tolerance, Reports dyspnea on exertion, Reports shortness of breath Respiratory: Reports cough, Reports dyspnea Gastrointestinal: Denies abdominal pain, Denies diarrhea, Denies nausea, Denies vomiting Genitourinary: Reports as per HPI Musculoskeletal: Reports gait dysfunction, Reports limitation of motion, Reports muscle weakness Musculoskeletal: absent: ankle pain, ankle stiffness, ankle swelling Integumentary: Denies pruritus, Denies rash Neurological: Reports gait dysfunction, Reports weakness Psychiatric: Reports as per HPI Endocrine: Reports as per HPI, Reports fatigue Hematologic/Lymphatic: Reports as per HPI Allergic/Immunologic: Reports as per HPI Past Medical History Past Medical History: Atrial Fibrillation, Cancer, COPD, Diabetes Mellitus, Hearing Disorder / Deafness, Hyperlipidemia, Hypertension, Memory Impairment, Osteoarthritis (OA), Skin Disorder Additional Past Medical History / Comment(s): melanoma- has had 2 chemo treatments at [facility] in [place] stated next one due 01-07-18. (see's dr fadia mccollum-onc.) cataracts, vitiligo, left carotid artery stenosis in the order of 50-65%, dysphagia History of Any Multi-Drug Resistant Organisms: None Reported Past Surgical History: Unable to Obtain, Cholecystectomy Additional Past Surgical History / Comment(s): malignant mass removed from rt arm pit and/lymph node removal for CA, collapsed lung per pt.colonosocpt/ polypectomy-benign. Past Anesthesia/Blood Transfusion Reactions: No Reported Reaction Past Psychological History: No Psychological Hx Reported Smoking Status: Former smoker Past Alcohol Use History: None Reported Additional Past Alcohol Use History / Comment(s): started smoking at age 19 ( 1954)and quit 1968 smoked less than 1 ppd. Past Drug Use History: None Reported - Past Family History Mother Family Medical History: Neurologic Disorder Additional Family Medical History / Comment(s): parkinsons Father Family Medical History: Cancer Additional Family Medical History / Comment(s): spinal cancer Medications and Allergies Home Medications Medication Instructions Recorded Confirmed Type Acetaminophen [Tylenol] 500 mg PO TID PRN 01/02/18 01/12/18 History Ammonium Lactate Cream [Lac-Hydrin 1 applic TOPICAL DAILY PRN 01/02/18 01/12/18 History 12% Cream] Atorvastatin Calcium [Lipitor] 80 mg PO HS 01/02/18 01/12/18 History Carvedilol [Coreg] 6.25 mg PO BID-W/MEALS 01/02/18 01/12/18 History Fluocinonide 0.05% [Lidex 0.05% 1 applic TOPICAL BID 01/02/18 01/12/18 History cream] Furosemide [Lasix] 40 mg PO DAILY 01/02/18 01/12/18 History Insulin Glargine,Hum.rec.anlog 35 unit SQ HS 01/02/18 01/12/18 History [Basaglar Kwikpen U-100] Ketoconazole 2% Cream [Nizoral 2%] 1 applic TOPICAL BID 01/02/18 01/12/18 History Multivitamins, Thera [Multivitamin 1 tab PO DAILY 01/02/18 01/12/18 History (formulary)] Pioglitazone [Actos] 45 mg PO DAILY 01/02/18 01/12/18 History glipiZIDE [Glucotrol] 10 mg PO BID 01/02/18 01/12/18 History Amoxicillin/Potassium Clav 1 tab PO Q12HR #10 tab 01/07/18 01/12/18 Rx [Augmentin 875-125 Tablet] Aspirin EC [Ecotrin Low Dose] 81 mg PO DAILY #1 tab 01/07/18 01/12/18 Rx Ipratropium-Albuterol Nebulize 3 ml INHALATION RT-QID #120 01/07/18 01/12/18 Rx [Duoneb 0.5 mg-3 mg/3 ml Soln] ampul.neb Pantoprazole Sodium [Protonix] 40 mg PO DAILY #30 tablet. 01/07/18 01/12/18 Rx Budesonide/Formoterol Fumarate 2 puff INHALATION RT-BID 01/12/18 01/12/18 History [Symbicort 160-4.5 Mcg Inhaler] predniSONE See Taper PO DAILY 01/12/18 01/12/18 History Allergies Allergy/AdvReac Type Severity Reaction Status Date / Time No Known Allergies Allergy Verified 01/12/18 10:56 Physical Exam Vitals: Vital Signs Temp Pulse Pulse Resp BP BP Pulse Ox 01/12/18 12:34 88 01/12/18 12:24 88 01/12/18 12:00 97.7 F 94 16 148/69 93 L 01/12/18 08:47 72 01/12/18 08:30 76 01/12/18 08:00 97.0 F L 80 20 145/71 92 L 01/12/18 04:00 97.9 F 68 20 160/79 97 01/12/18 00:00 98 F 66 20 178/81 99 01/11/18 23:02 97.8 F 80 20 163/79 99 01/11/18 21:37 98 F 74 18 173/84 92 L 01/11/18 21:35 76 20 149/81 98 01/11/18 20:33 82 20 148/71 99 01/11/18 19:00 90 20 151/66 99 01/11/18 16:30 97.9 F 91 20 151/83 96 Intake and Output 01/11/18 01/12/18 01/12/18 22:59 06:59 14:59 Intake Total 50 Output Total 800 Balance -750 Intake: IV 50 Cefepime 2 gm In Sodium 50 Chloride 0.9% 50 ml @ 100 mls/hr IVPB ONCE STA Rx# :[id number] Output: Urine 800 Other: Voiding Method Urinal # Voids 1 Weight 95.708 kg General Impression: Alert and oriented, however the patient is extremely hard of hearing, could not maintain an adequate conversation with the patient and no family members at bedside. HEENT: PERRLA, EOMI, no icterus, no neck masses, no JVD. No stridor. No lymphadenopathy. Cardiovascular: Irregular irregular rhythm, normal S1&S2 audible, no murmurs, rubs or gallops Chest: Lungs clear to auscultation bilaterally, no rhonchi, no wheeze, no rales Abdomen: Bowel sounds present, abdomen soft, non-tender, non-distended, no organomegaly Musculoskeletal: Pulses present and equal in all extremities, trace of peripheral edema noted. Motor: Moves all tremors grossly Neurological: CN II-XII grossly intact, extremely hard of hearing, no focal neurological deficit and the patient is moving all 4 extremities without any limitation Skin: Intact with no visualized rashes Psych: Normal affect and mood Results - Laboratory Findings CBC and BMP: 01/12/18 05:58 01/12/18 05:58 PT/INR, D-dimer PT 10.2 sec (9.0-12.0) 01/11/18 19:00 INR 1.0 (<1.2) 01/11/18 19:00 Abnormal lab findings: Abnormal Labs 01/11/18 01/11/18 01/11/18 19:00 19:00 19:00 WBC 21.6 H MCHC 30.6 L Neutrophils # 18.3 H Monocytes # 1.3 H VBG pCO2 54 H BUN 71 H Creatinine 1.69 H Glucose 287 H POC Glucose (mg/dL) ALT 155 H Total Creatine Kinase CK-MB (CK-2) Troponin I Urine Protein Urine Glucose (UA) Urine Blood Amorphous Sediment Urine Bacteria Hyaline Casts Urine Mucus 01/11/18 01/11/18 01/11/18 19:00 21:30 23:15 WBC MCHC Neutrophils # Monocytes # VBG pCO2 BUN Creatinine Glucose POC Glucose (mg/dL) ALT Total Creatine Kinase CK-MB (CK-2) Troponin I 0.097 H* 0.087 H* Urine Protein 2+ H Urine Glucose (UA) 3+ H Urine Blood Moderate H Amorphous Sediment Rare H Urine Bacteria Rare H Hyaline Casts 6 H Urine Mucus Rare H 01/12/18 01/12/18 01/12/18 00:00 05:43 05:58 WBC MCHC Neutrophils # Monocytes # VBG pCO2 BUN 68 H Creatinine 1.68 H Glucose 213 H POC Glucose (mg/dL) 237 H ALT Total Creatine Kinase 519 H CK-MB (CK-2) 53.9 H Troponin I 0.099 H* Urine Protein Urine Glucose (UA) Urine Blood Amorphous Sediment Urine Bacteria Hyaline Casts Urine Mucus 01/12/18 01/12/18 01/12/18 05:58 05:58 11:53 WBC 19.5 H MCHC Neutrophils # 16.3 H Monocytes # 1.1 H VBG pCO2 BUN Creatinine Glucose POC Glucose (mg/dL) 218 H ALT Total Creatine Kinase 479 H CK-MB (CK-2) 58.6 H Troponin I Urine Protein Urine Glucose (UA) Urine Blood Amorphous Sediment Urine Bacteria Hyaline Casts Urine Mucus 01/12/18 12:17 WBC MCHC Neutrophils # Monocytes # VBG pCO2 BUN Creatinine Glucose POC Glucose (mg/dL) ALT Total Creatine Kinase 587 H CK-MB (CK-2) 71.6 H Troponin I Urine Protein Urine Glucose (UA) Urine Blood Amorphous Sediment Urine Bacteria Hyaline Casts Urine Mucus - Diagnostic Findings Chest x-ray: image reviewed Assessment and Plan Plan: Assessment 1 multitude of complaints, majority nonspecific. Admitted for aspiration/ healthcare associated pneumonia, although this is not absolutely clear to me. I realize the patient has some limited infiltration of left lung base. This may be atelectatic in nature. No worsening in oxygenation and in fact the patient is on room air oxygen. No respiratory distress. No significant cough or sputum production. 2 high-risk for pulmonary aspiration 3 chronic dysphagia workup has been negative during his last admission, may need further investigation including the possibility of recurrent CVA or even [employer] lesions from primary skin cancer such as melanoma 4 melanoma of the skin resected followed by systemic chemotherapy 5 neck pain 6 diabetes mellitus 7 chronic renal failure 8 impaired hearing with difficulty in communication 9 hypertension 10 hyperlipidemia 11 vitiligo 12 carotid artery stenosis on the left in the order of 50-69 percent 13 chronic renal failure 14 mild leukocytosis 15 mild troponin leak Plan May stop the vancomycin. Continue cefepime. Watch for any signs of evolving respiratory tract infection or pneumonia although my suspicion is extremely low this case. Aspiration precautions. Keep nothing by mouth except for medication Swallow evaluation. Consider MRI of her brain rule out any [employer] metastases contributing to his dysphagia and rule out any possible stroke. We' ll continue to follow.
--- NOTE | 2018-01-12 14:19 | PN ---
PROGRESS NOTE DATE OF SERVICE: 01/12/2018. INTERVAL HISTORY: This is an 82-year-old male patient with multiple medical history significant for atrial fibrillation, COPD, recent myocardial infarction, pneumonia, diabetes mellitus, hypertension, hyperlipidemia, who was presented to the emergency room with complaints of blurry vision, right-sided weakness and right facial drooping. Upon arrival, patient had a CT scan of the head, which was nonsignificant, only age-related atrophy changes. The patient was admitted to the inpatient unit and had Neurology, Cardiology, Pulmonary consultations. She was getting neuro check. The patient had a carotid Doppler ordered, which was significant for carotid stenosis. Vascular surgery was consulted. The patient was seen and examined this morning at bedside. He is sitting up in the chair. He is extremely hard of hearing. As per nursing staff, patient has some difficulty in swallowing. The patient has had an EGD in the past, which showed no stricture. However, speech swallow evaluation is requested. The patient needs to be under strict supervision with meals as well as medication administration. REVIEW OF SYSTEMS: Denied fever, chills or diaphoresis. Denied chest pain or palpitation. Denied shortness of breath, cough or sputum production. Denied abdominal pain, nausea, vomiting, diarrhea, constipation. Denied urgency, frequency, dysuria. CURRENT MEDICATIONS: 1. Tylenol 500 mg t.i.d. p.r.n. 2. DuoNeb q.i.d., nebulized treatments. 3. Augmentin 875/125, 1 p.o. q.12 hours. 4. Aspirin 81 mg daily. 5. Lipitor 80 mg q.h.s. 6. Symbicort 2 puffs b.i.d. 7. Coreg 6.25 mg p.o. b.i.d. 8. Cefepime 2 g q.8 hours. 9. Lasix 40 mg daily. 10.Glipizide 10 mg b.i.d. 11.NovoLog sliding scale. 12.Levemir 35 units q.h.s. 13.Multivitamin 1 p.o. daily. 14.Protonix 40 mg daily. 15.Actos 45 mg daily. 16.Prednisone 40 mg daily. 17.Vancomycin pharmacy to dose. PHYSICAL EXAMINATION: VITAL SIGNS: Temperature 97.7, heart rate 94, respiratory rate 16, pulse ox 93% on room air. Blood pressure 148/69. The patient is sitting up in chair, awake, oriented x3. Extremely hard of hearing. HEENT: Conjunctiva normal. Oral mucosa moist. NECK: Supple. No JVD. CARDIOVASCULAR: S1, S2 present. Regular rate and rhythm. No S3 or S4. RESPIRATORY: Lung sounds are diminished in the bases. A few scattered rhonchi. ABDOMEN: Soft, nondistended. Bowel sounds are normoactive. EXTREMITIES: No significant edema. Peripheral pulses 2+ bilaterally. NEUROLOGICAL: Moves all extremities. Diffuse weakness. PSYCHIATRIC: Normal mood and affect. LABORATORY STUDIES: WBC 19.5, hemoglobin 14.9, hematocrit 47.3, platelet count 377. Sodium 140, potassium 4.8, CO2 106, BUN 68, creatinine 1.68. ASSESSMENT: 1. Weakness of the right side of the body and drooping, possible acute transient ischemic attack. Neurology on consult. Patient is on statin. 2. Possible left lower lobe pneumonia. Continue with antibiotic. 3. Leukocytosis, possibly secondary to pneumonia as well as reactive from steroid use. 4. Acute on chronic renal failure possibly acute tubular necrosis. Baseline creatinine is between 1.6-2. 5. History of recent non ST elevated myocardial infraction. Troponins are trending down. 6. History of recent bibasilar pneumonia, possible gram-negative, currently on antibiotic. 7. Chronic obstructive pulmonary disease, not on any exacerbation 8. History of dysphagia, patient recently had EGD and swallow study. No esophageal stricture. However, speech evaluation will be requested. 9. Chronic atrial fibrillation. 10.Diabetes mellitus type 2. 11.Hypertension. 12.Hyperlipidemia. 13.Degenerative joint disease. PLAN: Will continue with the current medications. Continue statins. The patient has been followed by Cardiology, Neurology, as well as pulmonary service. The patient has significant carotid stenosis. We will consult Vascular Surgery. Continue neuro checks. Monitor CBC and BMP in a.m. Encourage activities as tolerated. Monitor patient closely. Prognosis is guarded. Further plans based on his clinical course. I performed a history and physical examination of the patient and discussed management with the nurse practitioner. I have reviewed the nurse practitioner's note and agree with the documented findings and plan of care. MMODL / EVIEN: [id number] / ADA
[2018-01-12 16:27] LABS: Glucose,Whole Blood 219 mg/dL (75-99)
--- NOTE | 2018-01-12 17:25 | CONS ---
CONSULTATION Natanael Jay is 82-year-old gentleman who was recently hospitalized here and discharged. He has a history of type 2 diabetes, hypertension, hyperlipidemia. He was evaluated by Cardiology on 01/03/2018 when he presented with multiple issues in the form of melanoma with metastasis, hypertension, hyperlipidemia, type 2 diabetes. He also is quite hard of hearing. His troponin is up to 0.2, 0.1 and 0.1 and it was deemed that his troponin elevation was not significant and he was discharged. He comes back into the hospital this time with complaints of having an increased fatigue, lack of energy, feeling weak, tired and exhausted and had question of pneumonia. There was also some neurological impairment when he came in, but this has all resolved. He feels well. Denies any chest discomfort at the time of my evaluation. I was asked to see him because of the elevated troponin. Troponins are actually better than what they have been on his recent hospitalization and may not represent any myocardial injury. He had a chest x-ray performed yesterday evening which revealed right lower lobe consolidation suggestive of possible pneumonia. His white count is also significantly elevated as well. I believe this hospitalization is really for pneumonia and troponin elevation is incidental and does not really reflect any myocardial injury. His creatinine is about 1.68. He has no chest pain. He is resting comfortably. PAST MEDICAL HISTORY: Evidence of recent hospitalization with atypical chest pain and has multiple comorbid conditions in the form of COPD, type 2 diabetes, hypertension, and recurrent pneumonia. MEDICATIONS: Prior to this admission include prednisone, Medrol Dosepak, Glucotrol, Actos, Protonix, Lasix, Coreg, Symbicort, Lipitor, Ecotrin. EXAMINATION: Blood pressure is 140/70, pulse rate is 70 per minute and regular. HEENT: Unremarkable. Fundus was not seen by me. NECK: Supple. There is JVD of 1 cm. No carotid bruit. Heart exam reveals S1, S2 heard normally. Short systolic murmur noted. Lungs revealed decent air entry. Abdomen is soft. Lower extremities reveal diminished pulses. Central nervous system grossly no focal deficits. Echocardiogram from January 03 revealed preserved systolic function with ejection fraction of 55-60 percent range with borderline concentric LVH and no significant pulmonary hypertension. IMPRESSION: 1. Right lower lobe pneumonia. 2. Troponin elevation does not represent any significant myocardial injury. 3. Chronic kidney disease. 4. Type 2 diabetes. 5. History of hyperlipidemia. RECOMMENDATIONS: EKG revealed sinus mechanism with a right bundle. I am recommending that we continue his current medications. No specific intervention from a cardiac standpoint and troponin elevation does not reflect acute myocardial injury. I will see the patient as needed during the hospitalization. Thank you very much for the consult. BROOKLYN / KRISTOPHER: [id number] /
--- NOTE | 2018-01-12 20:23 | P.CNNES ---
History of Present Illness Consult date: 01/12/18 Reason for Consult: Patient admitted with right sided weakness and TIA symptoms. History of Present Illness: This patient is a 82-year-old right-handed white male who was recently discharged from the [facility] after being treated for underlying pneumonia. Patient was admitted to the hospital on 01/11/2018 with symptoms of right-sided weakness and facial droop. He was also having increasing symptoms suggesting worsening aspiration pneumonia. The patient does have history of chronic atrial fibrillation which is his risk factor for TIA and stroke. [facility] [place] He states he was having symptoms of right-sided weakness and right-sided facial drooping which suggested possibility of TIA. He is currently showing no evidence of facial asymmetry. He is very hard of hearing but does follow simple commands. He underwent a carotid Doppler study which reveals some carotid artery stenosis of the left internal carotid artery. Vascular surgery has been consulted. He was also noted by nursing staff earlier today is having difficulty with his swallowing. He did undergo EGD study in the past which showed no strictures. Patient does follow simple commands. He denies any previous history of TIA or stroke. Patient was empirically started on antibiotics for treatment of possible aspiration pneumonia and is currently states taking cefepime and vancomycin. The patient does have history of melanoma and has been undergoing systemic chemotherapy. He is undergone surgical resection of the melanoma as well as regional lymph node biopsies. No further details are available on his cancer treatment. In the emergency room yesterday the patient underwent a computed tomography scan of the brain. CAT scan revealed chronic-appearing ventricular white matter ischemic changes with age-related atrophy. Carotid Doppler study was done today which revealed 5069 percent stenosis of the proximal left ICA. As noted vascular surgery has been consulted and we are waiting their recommendations. The patient does have history of chronic atrial fibrillation but is not on any anticoagulant. He does take one baby aspirin daily. Patient has history of diabetes mellitus for several years. He also has underlying cognitive impairment. He is now been admitted and neurology has been consulted for further evaluation and recommendations. Review of Systems Constitutional: Denies chills, Denies fever Eyes: denies blurred vision, denies pain Ears, nose, mouth and throat: Denies headache, Denies sore throat Cardiovascular: Denies chest pain, Denies shortness of breath Respiratory: Denies cough Gastrointestinal: Denies abdominal pain, Denies diarrhea, Denies nausea, Denies vomiting Musculoskeletal: Denies myalgias Integumentary: Denies pruritus, Denies rash Neurological: Reports change in mentation, Reports change in speech, Reports memory loss, Reports motor disturbance, Reports paresthesias, Denies numbness, Denies weakness Psychiatric: Denies anxiety, Denies depression Endocrine: Denies fatigue, Denies weight change Past Medical History Past Medical History: Atrial Fibrillation, Cancer, COPD, Diabetes Mellitus, Hearing Disorder / Deafness, Hyperlipidemia, Hypertension, Memory Impairment, Osteoarthritis (OA), Skin Disorder Additional Past Medical History / Comment(s): melanoma- has had 2 chemo treatments at [facility] in [place] stated next one due 01-07-18. 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 Past Anesthesia/Blood Transfusion Reactions: No Reported Reaction Past Psychological History: No Psychological Hx Reported Smoking Status: Former smoker Past Alcohol Use History: None Reported Additional Past Alcohol Use History / Comment(s): started smoking at age 19 ( 1954)and quit 1968 smoked less than 1 ppd. Past Drug Use History: None Reported - Past Family History Mother Family Medical History: Neurologic Disorder Additional Family Medical History / Comment(s): parkinsons Father Family Medical History: Cancer Additional Family Medical History / Comment(s): spinal cancer Medications and Allergies Home Medications Medication Instructions Recorded Confirmed Type Acetaminophen [Tylenol] 500 mg PO TID PRN 01/02/18 01/12/18 History Ammonium Lactate Cream [Lac-Hydrin 1 applic TOPICAL DAILY PRN 01/02/18 01/12/18 History 12% Cream] Atorvastatin Calcium [Lipitor] 80 mg PO HS 01/02/18 01/12/18 History Carvedilol [Coreg] 6.25 mg PO BID-W/MEALS 01/02/18 01/12/18 History Fluocinonide 0.05% [Lidex 0.05% 1 applic TOPICAL BID 01/02/18 01/12/18 History cream] Furosemide [Lasix] 40 mg PO DAILY 01/02/18 01/12/18 History Insulin Glargine,Hum.rec.anlog 35 unit SQ HS 01/02/18 01/12/18 History [Basaglar Nicoleikpen U-100] Ketoconazole 2% Cream [Nizoral 2%] 1 applic TOPICAL BID 01/02/18 01/12/18 History Multivitamins, Thera [Multivitamin 1 tab PO DAILY 01/02/18 01/12/18 History (formulary)] Pioglitazone [Actos] 45 mg PO DAILY 01/02/18 01/12/18 History glipiZIDE [Glucotrol] 10 mg PO BID 01/02/18 01/12/18 History Amoxicillin/Potassium Clav 1 tab PO Q12HR #10 tab 01/07/18 01/12/18 Rx [Augmentin 875-125 Tablet] Aspirin EC [Ecotrin Low Dose] 81 mg PO DAILY #1 tab 01/07/18 01/12/18 Rx Ipratropium-Albuterol Nebulize 3 ml INHALATION RT-QID #120 01/07/18 01/12/18 Rx [Duoneb 0.5 mg-3 mg/3 ml Soln] ampul.neb Pantoprazole Sodium [Protonix] 40 mg PO DAILY #30 tablet. 01/07/18 01/12/18 Rx Budesonide/Formoterol Fumarate 2 puff INHALATION RT-BID 01/12/18 01/12/18 History [Symbicort 160-4.5 Mcg Inhaler] predniSONE See Taper PO DAILY 01/12/18 01/12/18 History Allergies Allergy/AdvReac Type Severity Reaction Status Date / Time No Known Allergies Allergy Verified 01/12/18 10:56 Physical Examination - Vital Signs Vital Signs: Vital Signs Temp Pulse Pulse Resp BP BP Pulse Ox 01/12/18 04:00 97.9 F 68 20 160/79 97 01/12/18 00:00 98 F 66 20 178/81 99 01/11/18 23:02 97.8 F 80 20 163/79 99 01/11/18 21:37 98 F 74 18 173/84 92 L 01/11/18 21:35 76 20 149/81 98 01/11/18 20:33 82 20 148/71 99 01/11/18 19:00 90 20 151/66 99 01/11/18 16:30 97.9 F 91 20 151/83 96 Intake and Output 01/11/18 01/11/18 01/12/18 14:59 22:59 06:59 Intake Total 50 Output Total 800 Balance -750 Intake: IV 50 Cefepime 2 gm In Sodium 50 Chloride 0.9% 50 ml @ 100 mls/hr IVPB ONCE STA Rx# :[id number] Output: Urine 800 Other: Voiding Method Urinal # Voids 1 Weight 95.708 kg - Constitutional General appearance: average body habitus, cooperative - EENT EENT: PERRL, mucous membranes moist - Respiratory Respiratory: lungs clear, normal breath sounds - Cardiovascular Cardiovascular: regular rate, normal S1, normal S2 Extremities: no peripheral edema bilaterally - Gastrointestinal Gastrointestinal: normoactive bowel sounds - Integumentary Integumentary: normal - Neurologic Cranial nerve examination: PERRL, EOMI, VFF, V1/V2/V3 grossly intact, face symmetric, tongue midline, intact gag reflex, intact corneal reflex, normal palatal elevation Speech examination: intact Sensorimotor examination: intact Motor examination - right side: 4/5: biceps, triceps, wrist flexion, wrist extension, dry house wheeler, hip flexors, knee extensors, dorsiflexion, toe extension (EHL) , plantarflexion Motor examination - left side: 4/5: biceps, triceps, wrist flexion, wrist extension, dry house wheeler, hip flexors, knee extensors, dorsiflexion, toe extension (EHL) , plantarflexion Detailed sensory examination: intact Reflex and gait examination: intact Reflexes: 1+: ankle, bicep, knee, tricep - Musculoskeletal Musculoskeletal: no pain - Psychiatric Psychiatric: mood/affect appropriate, cooperative Results - Laboratory Findings CBC and BMP: 01/12/18 05:58 01/12/18 05:58 Abnormal Lab Findings: Abnormal Labs 01/11/18 01/11/18 01/11/18 19:00 19:00 19:00 WBC 21.6 H MCHC 30.6 L Neutrophils # 18.3 H Monocytes # 1.3 H VBG pCO2 54 H BUN 71 H Creatinine 1.69 H Glucose 287 H POC Glucose (mg/dL) ALT 155 H Total Creatine Kinase CK-MB (CK-2) Troponin I Urine Protein Urine Glucose (UA) Urine Blood Amorphous Sediment Urine Bacteria Hyaline Casts Urine Mucus 0901/11/18 01/11/18 19:00 21:30 23:15 WBC MCHC Neutrophils # Monocytes # VBG pCO2 BUN Creatinine Glucose POC Glucose (mg/dL) ALT Total Creatine Kinase CK-MB (CK-2) Troponin I 0.097 H* 0.087 H* Urine Protein 2+ H Urine Glucose (UA) 3+ H Urine Blood Moderate H Amorphous Sediment Rare H Urine Bacteria Rare H Hyaline Casts 6 H Urine Mucus Rare H 01/12/18 01/12/18 00:00 05:43 WBC MCHC Neutrophils # Monocytes # VBG pCO2 BUN Creatinine Glucose POC Glucose (mg/dL) 237 H ALT Total Creatine Kinase 519 H CK-MB (CK-2) 53.9 H Troponin I 0.099 H* Urine Protein Urine Glucose (UA) Urine Blood Amorphous Sediment Urine Bacteria Hyaline Casts Urine Mucus Assessment and Plan (1) TIA (transient ischemic attack) Current Visit: Yes Status: Acute Code(s): G45.9 - TRANSIENT CEREBRAL ISCHEMIC ATTACK, UNSPECIFIED SNOMED Code(s): 855096088 (2) Atrial fibrillation Current Visit: Yes Status: Acute Code(s): I48.91 - UNSPECIFIED ATRIAL FIBRILLATION SNOMED Code(s): 40962934 (3) HCAP (healthcare-associated pneumonia) Current Visit: Yes Status: Acute Code(s): J18.9 - PNEUMONIA, UNSPECIFIED ORGANISM SNOMED Code(s): 256375173 (4) Weakness Current Visit: Yes Status: Acute Code(s): R53.1 - WEAKNESS SNOMED Code(s) : 89791164 Plan: This patient is a 82-year-old male being evaluated for symptoms of right-sided weakness and right facial droop. Symptoms apparently were more severe when he presented yesterday. He was seen in the emergency room and underwent a computed tomography scan of the brain. A CAT scan of the brain revealed chronic appearing periventricular white matter ischemic changes with age- related atrophy. There is no evidence of acute stroke. His symptoms suggesting possibility of TIA involving the left hemisphere. Patient underwent carotid Doppler study today which reveals 5069 percent stenosis in the proximal left ICA. He does have history of underlying melanoma as well as atrial fibrillation which is chronic in nature. This raises the question of possible embolic source for his TIA like symptoms. We have recommended patient undergo an MRI of the brain with and without gadolinium given his history of melanoma. We will continue close neurological follow-up for the patient. Would recommend a complete stroke evaluation for him at this time. His overall prognosis at this time remains very guarded. Time with Patient: Greater than 30
[2018-01-12] MEDS: ATORVASTATIN 80 MG TAB PO SCH (20:29)
[2018-01-12] MEDS: HEPARIN SODIUM,PORCINE 5,000 UNIT/ML 1 ML VIAL SQ SCH (20:30)
[2018-01-12] MEDS: INSULIN DETEMIR 100 UNIT/ML 10 ML VIAL SQ SCH (20:46)
[2018-01-12 20:54] LABS: Glucose,Whole Blood 255 mg/dL (75-99)
[2018-01-12] MEDS ORDERED: VANCOMYCIN 1,750 MG in SODIUM CHLORIDE 0.9% 500 ML IVPB SCH (21:00)
--- NOTE | 2018-01-12 21:52 | PN ---
PROGRESS NOTE DATE OF SERVICE: 01/12/2018. INTERVAL HISTORY: This 82-year-old gentleman was admitted with weakness of the right side is being evaluated for possible TIA and possible left lower lobe pneumonia, possible acute pneumonia is also considered. Seen and evaluated the patient along with the nurse practitioner. The patient also had carotid stenosis. Vascular surgery evaluation has been sought. Please refer to nurse practitioner notes and impression documented as a scribe for further evaluation and treatment. Closely follow with Dr. Nelson. Broad- spectrum IV antibiotics. MMODL / IJN: [id number] /
[2018-01-12] MEDS: ACETAMINOPHEN TAB 500 MG TAB PO PRN (22:48)
[2018-01-13] MEDS: CEFEPIME 2 GM in SODIUM CHLORIDE 0.9% 50 ML IVPB SCH ×2 (05:41→16:41)
[2018-01-13] MEDS: INSULIN ASPART 100 UNIT/ML 1 ML 10 ML VIAL SQ SCH ×4 (05:54→21:40)
[2018-01-13] MEDS: CARVEDILOL 6.25 MG TAB PO SCH ×3 (05:54→16:47)
[2018-01-13 05:55] LABS: Glucose,Whole Blood 102 mg/dL (75-99)
[2018-01-13] MEDS: IPRATROPIUM-ALBUTEROL 3 ML NEB INHALATION SCH ×4 (07:11→21:06)
[2018-01-13] MEDS: SYMBICORT 160-4.5 MCG INHALER INHALATION SCH ×2 (07:13→21:06)
[2018-01-13 07:26] LABS: Basophils % (A) 0 %; Eosinophils # (A) 0.5 k/uL (0-0.7); Eosinophils % (A) 3 %; HCT 46.5 % (39.0-53.0); HGB 14.6 gm/dL (13.0-17.5); Lymphocytes # (A) 1.4 k/uL (1.0-4.8); Lymphocytes % (A) 8 %; MCH 29.2 pg (25.0-35.0); MCHC 31.3 g/dL (31.0-37.0); MCV 93.3 fL (80.0-100.0); Mean Platelet Volume 7.5; Monocytes # (A) 0.9 k/uL (0-1.0); Monocytes % (A) 5 %; Neutrophils % (A) 83 %; Platelet Count 384 k/uL (150-450); RBC 4.99 m/uL (4.30-5.90); RDW 14.4 % (11.5-15.5)
[2018-01-13 07:44] LABS: Calcium 9.1 mg/dL (8.4-10.2); Potassium 4.3 mmol/L (3.5-5.1)
[2018-01-13] MEDS: BETAMETHASONE DIPROPIONATE 0.05% CREAM 15 GM TUBE TOPICAL SCH ×2 (09:46→21:39)
[2018-01-13] MEDS: CLOTRIMAZOLE 1% CREAM 15 GM TUBE TOPICAL SCH ×2 (09:46→21:39)
[2018-01-13] MEDS: AMMONIUM LACTATE 12% CREAM 140 GM TUBE TOPICAL SCH (09:46)
[2018-01-13] MEDS: HEPARIN SODIUM,PORCINE 5,000 UNIT/ML 1 ML VIAL SQ SCH ×2 (10:00→21:43)
[2018-01-13] MEDS: ASPIRIN 81 MG PO SCH (10:22)
[2018-01-13] MEDS: FUROSEMIDE 40 MG TAB PO SCH (10:22)
[2018-01-13] MEDS: PANTOPRAZOLE 40 MG TABLET PO SCH (10:22)
[2018-01-13] MEDS: glipiZIDE 10 MG TAB PO SCH ×2 (10:22→21:06)
[2018-01-13] MEDS: PIOGLITAZONE 45 MG TAB PO SCH (10:23)
[2018-01-13] MEDS: predniSONE 20 MG TAB PO SCH (10:23)
[2018-01-13] MEDS: MULTIVITAMINS, THERA 1 EACH TAB PO SCH (10:23)
--- NOTE | 2018-01-13 11:47 | CONS ---
CONSULTATION This is an 82-year-old gentleman who has been admitted to [facility] with history of double vision and some facial numbness and droop with complete recovery. Patient has history of multiple medical problems including atrial fibrillation, COPD, diabetes, hypertension, hyperlipidemia, patient also has a difficulty in swallowing the food and the liquid. Patient is seen by GI. Patient had a CT scan of brain, no acute infarct noted. Patient had a carotid ultrasound done which showed left side has some plaque formation, is torturous. Left internal carotid artery 50% to 69% stenosis. Right carotid, no significant stenosis noted. PHYSICAL EXAMINATION: Patient was seen in his room with his . Patient has very hard of hearing, history was discussed with the in detail. On examination, patient in sitting position. Both upper and lower extremities has a strong revenue field auditor of the upper extremity and he can move both his lower extremities. Chest is clear. A few crackles at the lung bases. Vascular examination, brachial radial femoral pulses are present. Patient also got history from his that patient has a history of melanoma, which was diagnosed in October and he had a lymph node dissection and mass removed from the right axilla and the patient had 2 chemotherapy at [facility]. His chemotherapy has been held since he has been admitted to [facility]. PLAN: At this point, patient has no motor deficit. The patient is scheduled to have MRI of the brain and also the EEG and his carotid is 50% to 69% stenosis of the left side of the tortuous internal carotid artery. I have discussed with the in detail. Will follow with you and if patient has any more recurrent symptoms, we may consider doing a CT angiogram. MMJIMBO / EVIEN: [id number] /
[2018-01-13] MEDS ORDERED: PERMETHRIN 1% CREME RINSE 59 ML LIQUID TOPICAL PRN (11:59)
[2018-01-13 12:04] LABS: Glucose,Whole Blood 132 mg/dL (75-99)
--- NOTE | 2018-01-13 12:24 | P.PN ---
Subjective Progress Note Date: 01/13/18 This 82-year-old male patient was recently discharged from the hospital and he was readmitted yesterday because of a combination of symptoms including weakness , feeling ill, difficulty in swallowing, right facial/eye droop, and for all this reasons he was brought back and he was given a diagnosis of an aspiration pneumonia in the emergency department. I concur that the patient has some difficulty swallowing as I assessed his swallow here in the hospital at the bedside. He is Nothing by mouth for now. His chest x-ray showed limited infiltration of the left lung base however I think this is atelectasis more than pneumonia. He swallow was evaluated during his last visit. He underwent a barium swallow and he was diagnosed having passed by esophagus with stasis of contrast within the esophagus. Has the possibility of aspiration was likely. The patient had also a GI evaluation with an EGD and there was no acute abnormalities noted. There is also concern that the patient is having TIA/CVA. Carotid Dopplers were done and the patient was found to have 50-69% stenosis of the left internal carotid artery. At this point in time a do not appreciate any focal neurological deficit nor there is any facial asymmetry. His motor function is symmetrical bilaterally. His speech is also the same per the family however is very hard to critically care with the patient because he has extensive hearing difficulties. The patient denies having any chest pain. He was placed on empiric antibiotic coverage with a combination of cefepime and vancomycin. He is also completing a prednisone burst taper. Note that during his last admission he was discharged home on Augmentin. He is still complaining of some fatigue. Troponin is a minimally elevated. No other issues for now. He also states that he has a history of melanoma and he is receiving systemic chemotherapy. The lesion was undergone. Resected and apparently was in the regional lymph nodes. No further details on his cancer treatment. Is complaining of pain in his neck area. 01/13/2018 the patient is seen this morning for a follow-up. He still having difficulty in swallowing. He failed a swallow evaluation at the bedside and patient is currently nothing by mouth. The patient was seen by neurology and further workup will be done including an MRI of the brain and vascular Dopplers. No respiratory difficulties. No cough sputum production. He was hospitalized for a suspicion of pneumonia although this is not absolutely clear to me at this point and I stopped his and the antibiotics and kept him on an IV cefepime only. He is also on a prednisone burst taper which she is still working on from his last admission. He was seen by vascular surgery and the plan is a CT angiogram at a later stage on outpatient basis.. The patient was also evaluated by neurology. Consultation is being given for TIA/CVA. 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 MRI of the brain will be needed to explain further his chronic/ongoing dysphagia. Objective - Vital Signs Vital signs: Vital Signs Temp 98.0 F 01/13/18 08:00 Pulse 75 01/13/18 08:58 Resp 18 01/13/18 08:58 BP 144/67 01/13/18 08:00 Pulse Ox 95 01/13/18 08:00 Intake & Output 01/12/18 01/13/18 01/13/18 18:59 06:59 18:59 Intake Total 250 50 Output Total 800 250 Balance -550 -200 Weight 88.2 kg Intake: IV 50 Cefepime 2 gm In Sodium 50 Chloride 0.9% 50 ml @ 100 mls/hr IVPB ONCE STA Rx# :[id number] Intake, IV Titration 50 Amount Cefepime 2 gm In Sodium 50 Chloride 0.9% 50 ml @ 100 mls/hr IVPB Q8H OLE Rx#: [id number] Oral 200 Output: Urine 800 250 Other: Voiding Method Urinal Urinal Urinal # Voids 1 2 - Exam General Impression: Alert and oriented, however the patient is extremely hard of hearing, could not maintain an adequate conversation with the patient and no family members at bedside. HEENT: PERRLA, EOMI, no icterus, no neck masses, no JVD. No stridor. No lymphadenopathy. Cardiovascular: Irregular irregular rhythm, normal S1&S2 audible, no murmurs, rubs or gallops Chest: Lungs clear to auscultation bilaterally, no rhonchi, no wheeze, no rales Abdomen: Bowel sounds present, abdomen soft, non-tender, non-distended, no organomegaly Musculoskeletal: Pulses present and equal in all extremities, trace of peripheral edema noted. Motor: Moves all tremors grossly Neurological: CN II-XII grossly intact, extremely hard of hearing, no focal neurological deficit and the patient is moving all 4 extremities without any limitation Skin: Intact with no visualized rashes Psych: Normal affect and mood - Labs CBC & Chem 7: 01/13/18 07:09 01/13/18 07:09 Labs: Abnormal Lab Results - Last 24 Hours (Table) 01/12/18 01/12/18 01/12/18 Range/Units 12:17 16:26 20:43 WBC (3.8-10.6) k/uL Neutrophils # (1.3-7.7) k/uL Chloride (98-107) mmol/L BUN (9-20) mg/dL Creatinine (0.66-1.25) mg/dL POC Glucose (mg/dL) 219 H 255 H (75-99) mg/dL Total Creatine Kinase 587 H (55-170) U/L CK-MB (CK-2) 71.6 H (0.0-2.4) ng/mL 01/13/18 01/13/18 01/13/18 Range/Units 05:53 07:09 07:09 WBC 18.0 H (3.8-10.6) k/uL Neutrophils # 15.0 H (1.3-7.7) k/uL Chloride 112 H (98-107) mmol/L BUN 61 H (9-20) mg/dL Creatinine 1.56 H (0.66-1.25) mg/dL POC Glucose (mg/dL) 102 H (75-99) mg/dL Total Creatine Kinase (55-170) U/L CK-MB (CK-2) (0.0-2.4) ng/mL 01/13/18 Range/Units 11:50 WBC (3.8-10.6) k/uL Neutrophils # (1.3-7.7) k/uL Chloride (98-107) mmol/L BUN (9-20) mg/dL Creatinine (0.66-1.25) mg/dL POC Glucose (mg/dL) 132 H (75-99) mg/dL Total Creatine Kinase (55-170) U/L CK-MB (CK-2) (0.0-2.4) ng/mL Assessment and Plan Plan: Assessment 1 multitude of complaints, majority nonspecific. Admitted for aspiration/ healthcare associated pneumonia, although this is not absolutely clear to me. I realize the patient has some limited infiltration of left lung base. This may be atelectatic in nature. No worsening in oxygenation and in fact the patient is on room air oxygen. No respiratory distress. No significant cough or sputum production. 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 Keep the patient nothing by mouth for now. Complete the neuro workup including a MRI of the brain. Neurology is on the case. He failed a swallow evaluation. Consider PEG tube insertion. He is a high risk for aspiration. Continue IV cefepime. We'll continue to follow.
[2018-01-13 16:42] LABS: Glucose,Whole Blood 96 mg/dL (75-99)
--- NOTE | 2018-01-13 17:00 | P.CONS ---
History of Present Illness - Reason for Consult Consult date: 01/13/18 Dysphagia Requesting physician: Fuad Yen - Chief Complaint Week, right facial droop and weakness - History of Present Illness The patient is an 82-year-old male with a medical history significant for COPD, hypertension, atrial fibrillation, presbyesophagus, diabetes mellitus and diagnosis of melanoma status post chemotherapy 2 who presented to the hospital with complaints of feeling ill, and right facial droop and weakness. The patient was recently hospitalized and on presentation back to the hospital for evaluation there is been concerns for possible aspiration pneumonia versus atelectasis. Currently the patient is on cefepime. The patient has had complaints of dysphagia in the past. His daughter who is sitting bedside reports that she had felt the dysphagia was mainly to thin liquids. The patient had evaluation with a barium esophagram in December which showed presbyesophagus and pooling of fluid above the GE junction. This was followed up by a EGD on 01/06/2018 which showed a normal esophagus with mild gastritis and no evidence of obstruction. The patient was seen by speech language pathology on this presentation to the hospital who noted that on swallow evaluation the patient did not appear to have trouble with the oropharyngeal transfer phase of his swallow but subsequent to that with start having episodes of coughing and regurgitation. Currently he is sitting bedside reporting that he is hungry. The patient is hard of hearing and communication has occurred with the patient' s daughter, the patient's and the medical staff. Review of Systems REVIEW OF SYSTEMS: CARDIOPULMONARY: Denies chest pain or shortness of breath. GENITOURINARY: No dysuria or hematuria. MUSCULOSKELETAL: No weakness reported. SKIN: Denies any new rashes or lesions, jaundice or pallor. The patient was diagnosed with head lice for which he is being treated. PSYCHIATRIC: Denies any depression or anxiety. NEUROLOGY: Denies headache, denies any new focal deficits with improvement of right-sided weakness which initially brought the patient to the hospital. EARS: No tinnitus, discharge or new hearing loss. The patient is hard of hearing and family uses a white board to communicate with him. NOSE: No discharge or congestion. EYES: No pain in eyes or change in vision. CONSTITUTIONAL: No recent weight loss. No fever, chills, night sweats. Past Medical History Past Medical History: Atrial Fibrillation, Cancer, COPD, Diabetes Mellitus, Hearing Disorder / Deafness, Hyperlipidemia, Hypertension, Memory Impairment, Osteoarthritis (OA), Skin Disorder Additional Past Medical History / Comment(s): melanoma- has had [address] [facility] [place] stated next one due 01-07-18. 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 Past Anesthesia/Blood Transfusion Reactions: No Reported Reaction Past Psychological History: No Psychological Hx Reported Smoking Status: Former smoker Past Alcohol Use History: None Reported Additional Past Alcohol Use History / Comment(s): started smoking at age 19 ( 1954)and quit 1968 smoked less than 1 ppd. Past Drug Use History: None Reported - Past Family History Mother Family Medical History: Neurologic Disorder Additional Family Medical History / Comment(s): parkinsons Father Family Medical History: Cancer Additional Family Medical History / Comment(s): spinal cancer Medications and Allergies Home Medications Medication Instructions Recorded Confirmed Type Acetaminophen [Tylenol] 500 mg PO TID PRN 01/02/18 01/12/18 History Ammonium Lactate Cream [Lac-Hydrin 1 applic TOPICAL DAILY PRN 01/02/18 01/12/18 History 12% Cream] Atorvastatin Calcium [Lipitor] 80 mg PO HS 01/02/18 01/12/18 History Carvedilol [Coreg] 6.25 mg PO BID-W/MEALS 01/02/18 01/12/18 History Fluocinonide 0.05% [Lidex 0.05% 1 applic TOPICAL BID 01/02/18 01/12/18 History cream] Furosemide [Lasix] 40 mg PO DAILY 01/02/18 01/12/18 History Insulin Glargine,Hum.rec.anlog 35 unit SQ HS 01/02/18 01/12/18 History [Basaglar Kwikpen U-100] Ketoconazole 2% Cream [Nizoral 2%] 1 applic TOPICAL BID 01/02/18 01/12/18 History Multivitamins, Thera [Multivitamin 1 tab PO DAILY 01/02/18 01/12/18 History (formulary)] Pioglitazone [Actos] 45 mg PO DAILY 01/02/18 01/12/18 History glipiZIDE [Glucotrol] 10 mg PO BID 01/02/18 01/12/18 History Amoxicillin/Potassium Clav 1 tab PO Q12HR #10 tab 01/07/18 01/12/18 Rx [Augmentin 875-125 Tablet] Aspirin EC [Ecotrin Low Dose] 81 mg PO DAILY #1 tab 01/07/18 01/12/18 Rx Ipratropium-Albuterol Nebulize 3 ml INHALATION RT-QID #120 01/07/18 01/12/18 Rx [Duoneb 0.5 mg-3 mg/3 ml Soln] ampul.neb Pantoprazole Sodium [Protonix] 40 mg PO DAILY #30 tablet. 01/07/18 01/12/18 Rx Budesonide/Formoterol Fumarate 2 puff INHALATION RT-BID 01/12/18 01/12/18 History [Symbicort 160-4.5 Mcg Inhaler] predniSONE See Taper PO DAILY 01/12/18 01/12/18 History Allergies Allergy/AdvReac Type Severity Reaction Status Date / Time No Known Allergies Allergy Verified 01/12/18 10:56 Physical Exam Vitals: Vital Signs Temp Pulse Pulse Resp BP Pulse Ox 01/13/18 15:28 81 18 01/13/18 15:22 97.7 F 81 18 138/73 94 L 01/13/18 12:00 97.6 F 75 17 140/68 95 01/13/18 08:58 75 18 01/13/18 08:00 98.0 F 86 18 144/67 95 01/13/18 07:21 80 01/13/18 07:13 88 01/13/18 03:54 97.8 F 75 18 152/75 93 L 01/13/18 03:28 18 01/12/18 23:38 97.5 F L 80 18 158/72 95 01/12/18 20:00 97.3 F L 82 18 160/72 95 01/12/18 19:56 82 01/12/18 19:46 82 Intake and Output 01/13/18 01/13/18 01/13/18 06:59 14:59 22:59 Intake Total 50 Output Total 250 Balance -200 Intake: Intake, IV Titration 50 Amount Cefepime 2 gm In Sodium 50 Chloride 0.9% 50 ml @ 100 mls/hr IVPB Q8H [facility] Rx#: [id number] Output: Urine 250 Other: Voiding Method Urinal Urinal Urinal # Voids 1 2 Weight 88.2 kg Results CBC & Chem 7: 01/13/18 07:09 01/13/18 07:09 Labs: Abnormal Lab Results - Last 24 Hours (Table) 01/12/18 01/13/18 01/13/18 Range/Units 20:43 05:53 07:09 WBC 18.0 H (3.8-10.6) k/uL Neutrophils # 15.0 H (1.3-7.7) k/uL Chloride (98-107) mmol/L BUN (9-20) mg/dL Creatinine (0.66-1.25) mg/dL POC Glucose (mg/dL) 255 H 102 H (75-99) mg/dL 01/13/18 01/13/18 Range/Units 07:09 11:50 WBC (3.8-10.6) k/uL Neutrophils # (1.3-7.7) k/uL Chloride 112 H (98-107) mmol/L BUN 61 H (9-20) mg/dL Creatinine 1.56 H (0.66-1.25) mg/dL POC Glucose (mg/dL) 132 H (75-99) mg/dL Comments: Barium esophagram from last hospitalization was reviewed and was significant for presbyesophagus and pooling of liquid above the GE junction. Assessment and Plan (1) Dysphagia Narrative/Plan: Unclear etiology. Recent EGD was negative for any obstructive process. On evaluation by speech language pathology it was a judgment that there did not appear to be any evidence of dysfunction with the oropharyngeal transfer portion of the swallow. It is possible that the patient has associated motility dysfunction related to his underlying tortuous esophagus. Other etiologies may be neurologic impairment secondary to metastatic cancer or other pathology. Current Visit: Yes Status: Acute Code(s): R13.10 - DYSPHAGIA, UNSPECIFIED SNOMED Code(s): 48537641 (2) Presbyesophagus Narrative/Plan: Found on barium swallow with no abnormalities on subsequent EGD on 02/02/2018. Current Visit: Yes Status: Acute Code(s): K22.8 - OTHER SPECIFIED DISEASES OF ESOPHAGUS SNOMED Code(s): 638090659 (3) Gastritis Narrative/Plan: Found on EGD. Current Visit: Yes Status: Acute Code(s): K29.70 - GASTRITIS, UNSPECIFIED, WITHOUT BLEEDING SNOMED Code(s): 1197110 Plan: Supportive care Nothing by mouth Discussed the case at length with the practitioner from speech language pathology, who does not feel that the coughing and possible aspiration when the patient swallows is from a failure of his oropharyngeal transfer. If this is of concern would recommend a video swallow. Patient's daughter bedside at time of examination and the patients situation was explained to both her and her father. We'll continue workup of the patient' s dysphagia with MRI planned for evaluation of neurologic symptoms of possible TIA/CVA on presentation, this may also reveal findings which could explain his dysphagia. The patient and the family have been told about the possibility of PEG tube placement and would like time to think about whether or not he would like the procedure performed. The patient should remain nothing by mouth and if they decide to proceed with the procedure we'll try to schedule for tomorrow. If they decided to hold off we'll continue to monitor. Thank you for allowing us to participate in the care of this patient we will continue to follow
--- NOTE | 2018-01-13 18:12 | P.PN ---
Subjective Progress Note Date: 01/13/18 Progress note being dictated Interval history: This is an 82-year-old gentleman admitted with right-sided weakness, possible TIA, possible left lower lobe pneumonia, LICE, carotid stenosis and multiple other medical issues. Maintained on cefepime. Evaluated by vascular surgery, recommendations of follow-up CT angiogram OP. Maintained on broad-spectrum IV antibiotics. Difficulty swallowing, evaluated by speech therapy, NPO status recommended.Barium esophagram from last hospitalization reported significant presbyesophagus and pooling of liquid above the GE junction. Evaluated by GI, possible PEG tube placement. Workup in progress with MRI pending. Renal function slowly improving. Denies shortness of breath , maintaining O2 sats in the mid 90s, no cough. Review of systems: CONSTITUTIONAL: fatigue. Denies weight loss, fevers or chills, no night sweats HEENT: Itchy scalp, LICE CARDIOVASCULAR: No chest pain, orthopnea, no palpitations, no syncope. PULMONARY: No shortness of breath, no cough, no hemoptysis. GASTROINTESTINAL: Dysphagia, regurgitation ,no abdominal pain. Normoactive bowel sounds. NEUROLOGICAL: Improving right-sided weakness, no headache, no focal deficits HEMATOLOGICAL: Denies any bleeding or petechiae. GENITOURINARY: Denies any burning micturition, frequency, or urgency. . ENDOCRINE: Denies any polyuria or polydipsia. PSYCHIATRIC: No anxiety, no depression The rest of the 14 point review of systems is negative Active Medications Acetaminophen (Tylenol Tab) 500 mg PO TID PRN PRN Reason: Pain or Fever > 100.5 Last Admin: 01/12/18 22:48 Dose: 500 mg Albuterol/Ipratropium (Duoneb 0.5 Mg-3 Mg/3 Ml Soln) 3 ml INHALATION RT-QID [facility] Last Admin: 01/13/18 16:46 Dose: Not Given Aspirin (Aspirin) 81 mg PO DAILY [facility] Last Admin: 01/13/18 10:22 Dose: Not Given Atorvastatin Calcium (Lipitor) 80 mg PO HS [facility] Last Admin: 01/12/18 20:29 Dose: 80 mg Betamethasone Dipropionate (Diprolene Af) 1 applic TOPICAL BID [facility] Last Admin: 01/13/18 09:46 Dose: Not Given Budesonide/Formoterol Fumarate (Symbicort 160-4.5 Mcg Inhaler) 2 puff INHALATION BID [facility] Last Admin: 01/13/18 07:13 Dose: 2 puff Carvedilol (Coreg) 6.25 mg PO BID-W/MEALS [facility] Last Admin: 01/13/18 16:47 Dose: Not Given Clotrimazole (Lotrimin Cream) 1 applic TOPICAL BID [facility] Last Admin: 01/13/18 09:46 Dose: Not Given Furosemide (Lasix) 40 mg PO DAILY [facility] Last Admin: 01/13/18 10:22 Dose: Not Given Glipizide (Glucotrol) 10 mg PO BID [facility] Last Admin: 01/13/18 10:22 Dose: Not Given Heparin Sodium (Porcine) (Heparin) 5,000 unit SQ Q12HR [facility] Last Admin: 01/13/18 10:00 Dose: 5,000 unit Cefepime HCl 2 gm/ Sodium (Chloride) 50 mls @ 100 mls/hr IVPB Q12H [facility] Last Admin: 01/13/18 16:41 Dose: 100 mls/hr Insulin Aspart (Novolog) 0 unit SQ ACHS [facility]; Protocol Last Admin: 01/13/18 16:40 Dose: Not Given Insulin Detemir (Levemir) 35 unit SQ HS [facility] Last Admin: 01/12/18 20:46 Dose: 35 unit Lactic Acid (Ammonium Lactate) 1 applic TOPICAL DAILY [facility] Last Admin: 01/13/18 09:46 Dose: Not Given Multivitamins (Theragran) 1 each PO DAILY@1200 [facility] Last Admin: 01/13/18 10:23 Dose: Not Given Naloxone HCl (Narcan) 0.2 mg IV Q2M PRN PRN Reason: Opioid Reversal Pantoprazole Sodium (Protonix) 40 mg PO DAILY [facility] Last Admin: 01/13/18 10:22 Dose: Not Given Permethrin (Nix Creme Rinse) 59 ml TOPICAL ONCE PRN PRN Reason: Head lice Last Admin: 01/13/18 14:15 Dose: 59 ml Pioglitazone HCl (Actos) 45 mg PO DAILY [facility] Last Admin: 01/13/18 10:23 Dose: Not Given Prednisone () 40 mg PO DAILY [facility] Stop: 01/14/18 09:01 Last Admin: 01/13/18 10:23 Dose: Not Given Prednisone () 30 mg PO DAILY [facility] Stop: 09/13/18 09:01 Prednisone () 20 mg PO DAILY [facility] Stop: 01/18/18 09:01 Prednisone () 10 mg PO DAILY [facility] Stop: 01/20/18 09:01 Objective - Vital Signs Vital signs: Vital Signs Temp 97.7 F 01/13/18 15:22 Pulse 81 01/13/18 15:28 Resp 18 01/13/18 15:28 BP 138/73 01/13/18 15:22 Pulse Ox 94 L 01/13/18 15:22 Intake & Output 01/12/18 01/13/18 01/13/18 18:59 06:59 18:59 Intake Total 250 50 Output Total 800 250 Balance -550 -200 Weight 88.2 kg Intake: IV 50 Cefepime 2 gm In Sodium 50 Chloride 0.9% 50 ml @ 100 mls/hr [facility] Rx# :[id number] Intake, IV Titration 50 Amount Cefepime 2 gm In Sodium 50 Chloride 0.9% 50 ml @ 100 mls/hr IVPB Q8H [facility] Rx#: [id number] Oral 200 Output: Urine 800 250 Other: Voiding Method Urinal Urinal Urinal # Voids 1 2 - Exam PHYSICAL EXAM: VITAL SIGNS: As above GENERAL: Sitting up in chair, no acute distress HEENT: Conjunctivae normal. eyes normal. Hard of hearing NECK: No JVD. No thyroid enlargement. No LNs CARDIOVASCULAR: S1, S2 muffled. Irregular, No murmur RESPIRATION: Breath sounds diminished in the bases. No rhonchi or crackles. ABDOMEN: Soft, nontender . No guarding. no masses palpable. Bowel sounds heard. LEGS: trace edema. PSYCHIATRY: Alert and oriented -3, mood and affect normal. NERVOUS SYSTEM: Cranial N 2-12 grossly normal. Moves all 4 limbs. Diffuse weakness No focal deficits. SKIN: No rashes - Labs CBC & Chem 7: 01/13/18 07:09 01/13/18 07:09 Labs: Abnormal Lab Results - Last 24 Hours (Table) 01/12/18 01/13/18 01/13/18 Range/Units 20:43 05:53 07:09 WBC 18.0 H (3.8-10.6) k/uL Neutrophils # 15.0 H (1.3-7.7) k/uL Chloride (98-107) mmol/L BUN (9-20) mg/dL Creatinine (0.66-1.25) mg/dL POC Glucose (mg/dL) 255 H 102 H (75-99) mg/dL 01/13/18 01/13/18 Range/Units 07:09 11:50 WBC (3.8-10.6) k/uL Neutrophils # (1.3-7.7) k/uL Chloride 112 H (98-107) mmol/L BUN 61 H (9-20) mg/dL Creatinine 1.56 H (0.66-1.25) mg/dL POC Glucose (mg/dL) 132 H (75-99) mg/dL Assessment and Plan Assessment: -Right-sided weakness, possible acute TIA -Possible left lower lobe pneumonia, possibly atelectasis -Leukocytosis, possibly related to the above or reactive-steroids -Acute on chronic renal failure, possibly ATN, baseline 1.6-2 -Dysphagia, failed swallow evaluation, Barium esophagram from last hospitalization reported significant presbyesophagus and pooling of liquid above the GE junction. High risk for aspiration . Possible recurrent CA -Presbyesophagus -Recent non-STEMI, mild troponin leak -COPD- -Diabetes mellitus type 2 -Hypertension -Hyperlipidemia -Degenerative joint disease -melanoma of the skin resected followed by systemic chemotherapy - carotid artery stenosis on the left in the order of 50-69 percent Plan: Continue on current medication regime ,monitoring and symptomatic treatment. Strict aspiration precautions, family discussing potential PEG tube placement. Neuro workup in place with MRI pending. Maintain IV antibiotics. Head lice treatment/nix cream rinse as per pharmacy. Prognosis guarded given multiple complex medical issues. Follow closely with multiple consults. The impression and plan of care has been dictated as directed. : I performed a history and examination of this patient, discussed the same with the dictator. I agree with the dictator's note ,documented as a scribe. Any additional findings or plans will be noted.
[2018-01-13] MEDS: INSULIN DETEMIR 100 UNIT/ML 10 ML VIAL SQ SCH (21:06)
[2018-01-13] MEDS: ATORVASTATIN 80 MG TAB PO SCH (21:06)
[2018-01-13 21:23] LABS: Glucose,Whole Blood 98 mg/dL (75-99)
[2018-01-14] MEDS: CEFEPIME 2 GM in SODIUM CHLORIDE 0.9% 50 ML IVPB SCH ×2 (05:41→17:40)
[2018-01-14 06:26] LABS: Glucose,Whole Blood 91 mg/dL (75-99)
[2018-01-14 06:35] LABS: Basophils % (A) 0 %; Eosinophils # (A) 0.4 k/uL (0-0.7); Eosinophils % (A) 2 %; HCT 46.2 % (39.0-53.0); HGB 14.5 gm/dL (13.0-17.5); Lymphocytes # (A) 1.5 k/uL (1.0-4.8); Lymphocytes % (A) 8 %; MCH 29.4 pg (25.0-35.0); MCHC 31.4 g/dL (31.0-37.0); MCV 93.8 fL (80.0-100.0); Mean Platelet Volume 8.3; Monocytes # (A) 0.9 k/uL (0-1.0); Monocytes % (A) 5 %; Neutrophils # (A) 14.9 k/uL (1.3-7.7); Neutrophils % (A) 83 %; Platelet Count 404 k/uL (150-450); RBC 4.93 m/uL (4.30-5.90); RDW 14.4 % (11.5-15.5); WBC 17.9 k/uL (3.8-10.6)
[2018-01-14] MEDS: INSULIN ASPART 100 UNIT/ML 1 ML 10 ML VIAL SQ SCH ×4 (06:40→22:03)
[2018-01-14 06:47] LABS: Calcium 9.4 mg/dL (8.4-10.2); Potassium 4.7 mmol/L (3.5-5.1)
[2018-01-14] MEDS: IPRATROPIUM-ALBUTEROL 3 ML NEB INHALATION SCH ×4 (07:46→20:29)
[2018-01-14] MEDS: SYMBICORT 160-4.5 MCG INHALER INHALATION SCH ×2 (07:46→20:33)
[2018-01-14] MEDS: CLOTRIMAZOLE 1% CREAM 15 GM TUBE TOPICAL SCH ×2 (08:09→22:52)
[2018-01-14] MEDS: BETAMETHASONE DIPROPIONATE 0.05% CREAM 15 GM TUBE TOPICAL SCH ×2 (08:09→22:52)
[2018-01-14] MEDS: CARVEDILOL 6.25 MG TAB PO SCH ×2 (08:09→16:07)
[2018-01-14] MEDS: AMMONIUM LACTATE 12% CREAM 140 GM TUBE TOPICAL SCH (08:09)
[2018-01-14] MEDS: FUROSEMIDE 40 MG TAB PO SCH (08:09)
[2018-01-14] MEDS: ASPIRIN 81 MG PO SCH (08:09)
[2018-01-14] MEDS: MULTIVITAMINS, THERA 1 EACH TAB PO SCH (08:10)
[2018-01-14] MEDS: predniSONE 10 MG TAB PO SCH (08:10)
[2018-01-14] MEDS: PIOGLITAZONE 45 MG TAB PO SCH (08:10)
[2018-01-14] MEDS: glipiZIDE 10 MG TAB PO SCH ×2 (08:10→21:59)
[2018-01-14] MEDS: predniSONE 20 MG TAB PO SCH (08:10)
[2018-01-14] MEDS: PANTOPRAZOLE 40 MG TABLET PO SCH (08:10)
--- NOTE | 2018-01-14 08:31 | MR ---
EXAMINATION TYPE: MR brain wo/w con DATE OF EXAM: 01/14/2018 COMPARISON: CT brain 01/11/2018 HISTORY: Patient with right sided weakness and h/o melanoma TECHNIQUE: Multiplanar, multisequence images of the brain and brainstem is performed without and with IV contras t, utilizing 8.5 mL intravenous Gadavist . FINDINGS: Fast brain protocol was utilized due to patient debility. Diffusion weighted images demonst rate no evidence of a recent infarct or other diffusion abnormality. There is no extra-axial fluid c ollection. Periventricular white matter shows confluent and scattered hyperintensities involving the juxta cortical, subcortical, pericallosal and deep white matter on inversion recovery on T2-weighted sequences corresponding to CT brain findings and likely due to chronic small vessel ischemia. The ve ntricular system and cisternal spaces are normal in size and appearance. The brain volume is age cassie ropriate, there is age-related atrophy. Midline structures demonstrate normal morphology. The craniocervical junction appears within normal limits. Post contrast images demonstrate no abnormal brain enhancement although there is motion on t he exam. The dural venous sinuses appear patent. The visualized sinuses are clear and the globes are intact. There is soft tissue mass present within the left parotid gland measuring approximately 15 mm in size. This showed enhancement following contrast administration. IMPRESSION: Age-related changes of atrophy and probable chronic small vessel ischemia. Indeterminate left parotid mass.
[2018-01-14] MEDS: HEPARIN SODIUM,PORCINE 5,000 UNIT/ML 1 ML VIAL SQ SCH ×2 (08:55→21:25)
[2018-01-14 11:49] LABS: Glucose,Whole Blood 108 mg/dL (75-99)
--- NOTE | 2018-01-14 12:17 | P.PN ---
Subjective Progress Note Date: 01/14/18 Principal diagnosis: Dyspnea secondary to suspected aspiration pneumonia This 82-year-old male patient was recently discharged from the hospital and he was readmitted yesterday because of a combination of symptoms including weakness , feeling ill, difficulty in swallowing, right facial/eye droop, and for all this reasons he was brought back and he was given a diagnosis of an aspiration pneumonia in the emergency department. I concur that the patient has some difficulty swallowing as I assessed his swallow here in the hospital at the bedside. He is Nothing by mouth for now. His chest x-ray showed limited infiltration of the left lung base however I think this is atelectasis more than pneumonia. He swallow was evaluated during his last visit. He underwent a barium swallow and he was diagnosed having passed by esophagus with stasis of contrast within the esophagus. Has the possibility of aspiration was likely. The patient had also a GI evaluation with an EGD and there was no acute abnormalities noted. There is also concern that the patient is having TIA/CVA. Carotid Dopplers were done and the patient was found to have 50-69% stenosis of the left internal carotid artery. At this point in time a do not appreciate any focal neurological deficit nor there is any facial asymmetry. His motor function is symmetrical bilaterally. His speech is also the same per the family however is very hard to critically care with the patient because he has extensive hearing difficulties. The patient denies having any chest pain. He was placed on empiric antibiotic coverage with a combination of cefepime and vancomycin. He is also completing a prednisone burst taper. Note that during his last admission he was discharged home on Augmentin. He is still complaining of some fatigue. Troponin is a minimally elevated. No other issues for now. He also states that he has a history of melanoma and he is receiving systemic chemotherapy. The lesion was undergone. Resected and apparently was in the regional lymph nodes. No further details on his cancer treatment. Is complaining of pain in his neck area. 01/13/2018 the patient is seen this morning for a follow-up. He still having difficulty in swallowing. He failed a swallow evaluation at the bedside and patient is currently nothing by mouth. The patient was seen by neurology and further workup will be done including an MRI of the brain and vascular Dopplers. No respiratory difficulties. No cough sputum production. He was hospitalized for a suspicion of pneumonia although this is not absolutely clear to me at this point and I stopped his and the antibiotics and kept him on an IV cefepime only. He is also on a prednisone burst taper which she is still working on from his last admission. He was seen by vascular surgery and the plan is a CT angiogram at a later stage on outpatient basis.. The patient was also evaluated by neurology. Consultation is being given for TIA/CVA. Another possibility is SOUND CONTROLLER metastases from a primary melanoma. MRI of the brain will be needed to explain further his chronic/ongoing dysphagia. On 01/14/2018 the patient is seen again in follow-up on the selective care unit. He is awake and alert. He is currently sitting up in a chair at the bedside. He is maintaining good O2 saturations in the 90s on room air. He's been afebrile. Hemodynamically stable. There has been ongoing concern regarding possible aspiration. He may need a PEG tube insertion. GI service is following. White count 17.9. Hemoglobin 14.5. Creatinine 1.55. MRI of the brain revealed age-related changes of atrophy and probable chronic small vessel ischemia. Indeterminate left parotid mass Objective - Vital Signs Vital signs: Vital Signs Temp 98.0 F 01/14/18 08:50 Pulse 84 01/14/18 12:03 Resp 16 01/14/18 12:03 BP 130/73 01/14/18 12:03 Pulse Ox 94 L 01/14/18 08:50 Intake & Output 01/13/18 01/14/18 01/14/18 18:59 06:59 18:59 Intake Total 100 50 Output Total 250 400 Balance -150 -350 Weight 87.5 kg Intake: Intake, IV Titration 100 50 Amount Cefepime 2 gm In Sodium 100 50 Chloride 0.9% 50 ml @ 100 mls/hr IVPB Q12H [facility] Rx# :[id number] Oral 0 0 Output: Urine 250 400 Other: Voiding Method Urinal Urinal Urinal # Voids 1 1 - Exam General Impression: Alert and oriented, however the patient is extremely hard of hearing, could not maintain an adequate conversation with the patient and no family members at bedside. HEENT: PERRLA, EOMI, no icterus, no neck masses, no JVD. No stridor. No lymphadenopathy. Cardiovascular: Irregular irregular rhythm, normal S1&S2 audible, no murmurs, rubs or gallops Chest: Lungs clear to auscultation bilaterally, no rhonchi, no wheeze, no rales Abdomen: Bowel sounds present, abdomen soft, non-tender, non-distended, no organomegaly Musculoskeletal: Pulses present and equal in all extremities, trace of peripheral edema noted. Motor: Moves all tremors grossly Neurological: CN II-XII grossly intact, extremely hard of hearing, no focal neurological deficit and the patient is moving all 4 extremities without any limitation Skin: Intact with no visualized rashes Psych: Normal affect and mood - Labs CBC & Chem 7: 01/14/18 06:19 01/14/18 06:19 Labs: Abnormal Lab Results - Last 24 Hours (Table) 01/14/18 01/14/18 01/14/18 Range/Units 06:19 06:19 11:47 WBC 17.9 H (3.8-10.6) k/uL Neutrophils # 14.9 H (1.3-7.7) k/uL Chloride 110 H (98-107) mmol/L BUN 55 H (9-20) mg/dL Creatinine 1.55 H (0.66-1.25) mg/dL Glucose 101 H (74-99) mg/dL POC Glucose (mg/dL) 108 H (75-99) mg/dL Assessment and Plan Assessment: Assessment 1 multitude of complaints, majority nonspecific. Admitted for aspiration/ healthcare associated pneumonia, although this is not absolutely clear to me. I realize the patient has some limited infiltration of left lung base. This may be atelectatic in nature. No worsening in oxygenation and in fact the patient is on room air oxygen. No respiratory distress. No significant cough or sputum production. 2 high-risk for pulmonary aspiration 3 chronic dysphagia workup has been negative during his last admission, may need further investigation including the possibility of recurrent CVA or even SOUND CONTROLLER lesions from primary skin cancer such as melanoma 4 melanoma of the skin resected followed by systemic chemotherapy 5 neck pain 6 diabetes mellitus 7 chronic renal failure 8 impaired hearing with difficulty in communication 9 hypertension 10 hyperlipidemia 11 vitiligo 12 carotid artery stenosis on the left in the order of 50-69 percent 13 chronic renal failure 14 mild leukocytosis 15 mild troponin leak Plan The patient was seen and evaluated by Dr. Nelosn. He is currently stable from the pulmonary standpoint. We'll continue with DuoNeb's and Symbicort. Continue cefepime. Continue with aspiration precautions. We will continue to follow and make further recommendations based on his clinical status. I, the cosigning physician, performed a history & physical examination of the patient. Lungs sounds are clear. Maintaining good O2 saturations in the 90s on room air. I discussed the assessment and plan of care with my nurse practitioner, Theresa Disa. I attest to the above note as dictated by her.
[2018-01-14 14:46] LABS: Glucose,Whole Blood 119 mg/dL (75-99)
--- NOTE | 2018-01-14 16:17 | CDI ---
Last Revision, April 2017 Documentation Clarification Form Date: 01/14/2018 4:05:17 PM From: Allison GaminoMartinezTIM [email or web address], CCDS Admit Date: 01/11/2018 9:02:00 PM Patient Name: Natanael Jay Visit Number: [id number] Discharge Date: ATTENTION: The Clinical Documentation Specialists (CDI) and [facility] Coding Staff appreciate your assistance in clarifying documentation. Please respond to the clarification below the line at the bottom and electronically sign. The CDI & [facility] Coding staff will review the response and follow-up if needed. Please note: Queries are made part of the Legal Health Record. If you have any questions, please contact the author of this message via ITS. Fuad [place] MD: Per the H/P: "History of recent acute non ST elevation myocardial infarction." The patient presented with weakness & right side facial drooping, diagnosed with possible TIA & possible LLL pneumonia. Patient history/risk factors: AR, COPD, Presbyesophagus, Chronic Atrial Fibrillation, DM II, CKD III, Hypertension & Hyperlipidemia. Clinical Indicators: Lab findings: WBC 21.6, Neut 18.3, Troponins: 0.097^^, 0.087^^, 0.099^^; CKMB 53.9^, 58.6^. Radiology findings: CXR: RLL consolidation adjacent to the diaphragm, correlate for pneumonia. Vital Signs: T 97.9, P 91, R 20, BP 151/83, PO 96 ra Treatment: IV Cefepime, IV Vancomycin, IV fl bolus, Albuterol INH, Symbicort INH , O2 2Lnc. Consults: Cardiology: also documented recent AR In your professional opinion, can you please clarify the timeframe of the patient's recent myocardial infarction? Myocardial Infarction: > 4 weeks from the date of this admission Myocardial Infarction: < 4 weeks from the date of this admission Other, please specify Unable to determine MTDD
[2018-01-14 16:30] LABS: Glucose,Whole Blood 111 mg/dL (75-99)
--- NOTE | 2018-01-14 17:53 | P.PN ---
Subjective Progress Note Date: 01/14/18 Progress note being dictated Interval history: This is an 82-year-old gentleman admitted with right-sided weakness, possible TIA, possible left lower lobe pneumonia, LICE, carotid stenosis and multiple other medical issues. Maintained on cefepime. Evaluated by vascular surgery, recommendations of follow-up CT angiogram OP. Maintained on broad-spectrum IV antibiotics. Difficulty swallowing, evaluated by speech therapy, NPO status recommended.Barium esophagram from last hospitalization reported significant presbyesophagus and pooling of liquid above the GE junction. Evaluated by GI, possible PEG tube placement. Workup in progress with MRI pending. Renal function slowly improving. Denies shortness of breath , maintaining O2 sats in the mid 90s, no cough. Review of systems: CONSTITUTIONAL: fatigue. Denies weight loss, fevers or chills, no night sweats HEENT: Itchy scalp, LICE CARDIOVASCULAR: No chest pain, orthopnea, no palpitations, no syncope. PULMONARY: No shortness of breath, no cough, no hemoptysis. GASTROINTESTINAL: Dysphagia, regurgitation ,no abdominal pain. Normoactive bowel sounds. NEUROLOGICAL: Improving right-sided weakness, no headache, no focal deficits HEMATOLOGICAL: Denies any bleeding or petechiae. GENITOURINARY: Denies any burning micturition, frequency, or urgency. . ENDOCRINE: Denies any polyuria or polydipsia. PSYCHIATRIC: No anxiety, no depression The rest of the 14 point review of systems is negative Active Medications Acetaminophen (Tylenol Tab) 500 mg PO TID PRN PRN Reason: Pain or Fever > 100.5 Last Admin: 01/12/18 22:48 Dose: 500 mg Albuterol/Ipratropium (Duoneb 0.5 Mg-3 Mg/3 Ml Soln) 3 ml INHALATION RT-QID [facility] Last Admin: 01/13/18 16:46 Dose: Not Given Aspirin (Aspirin) 81 mg PO DAILY [facility] Last Admin: 01/13/18 10:22 Dose: Not Given Atorvastatin Calcium (Lipitor) 80 mg PO HS [facility] Last Admin: 01/12/18 20:29 Dose: 80 mg Betamethasone Dipropionate (Diprolene Af) 1 applic TOPICAL BID [facility] Last Admin: 01/13/18 09:46 Dose: Not Given Budesonide/Formoterol Fumarate (Symbicort 160-4.5 Mcg Inhaler) 2 puff INHALATION BID [facility] Last Admin: 01/13/18 07:13 Dose: 2 puff Carvedilol (Coreg) 6.25 mg PO BID-W/MEALS [facility] Last Admin: 01/13/18 16:47 Dose: Not Given Clotrimazole (Lotrimin Cream) 1 applic TOPICAL BID [facility] Last Admin: 01/13/18 09:46 Dose: Not Given Furosemide (Lasix) 40 mg PO DAILY [facility] Last Admin: 01/13/18 10:22 Dose: Not Given Glipizide (Glucotrol) 10 mg PO BID [facility] Last Admin: 01/13/18 10:22 Dose: Not Given Heparin Sodium (Porcine) (Heparin) 5,000 unit SQ Q12HR [facility] Last Admin: 01/13/18 10:00 Dose: 5,000 unit Cefepime HCl 2 gm/ Sodium (Chloride) 50 mls @ 100 mls/hr IVPB Q12H [facility] Last Admin: 01/13/18 16:41 Dose: 100 mls/hr Insulin Aspart (Novolog) 0 unit SQ ACHS [facility]; Protocol Last Admin: 01/13/18 16:40 Dose: Not Given Insulin Detemir (Levemir) 35 unit SQ HS [facility] Last Admin: 01/12/18 20:46 Dose: 35 unit Lactic Acid (Ammonium Lactate) 1 applic TOPICAL DAILY [facility] Last Admin: 01/13/18 09:46 Dose: Not Given Multivitamins (Theragran) 1 each PO DAILY@1200 [facility] Last Admin: 01/13/18 10:23 Dose: Not Given Naloxone HCl (Narcan) 0.2 mg IV Q2M PRN PRN Reason: Opioid Reversal Pantoprazole Sodium (Protonix) 40 mg PO DAILY [facility] Last Admin: 01/13/18 10:22 Dose: Not Given Permethrin (Nix Creme Rinse) 59 ml TOPICAL ONCE PRN PRN Reason: Head lice Last Admin: 01/13/18 14:15 Dose: 59 ml Pioglitazone HCl (Actos) 45 mg PO DAILY [facility] Last Admin: 01/13/18 10:23 Dose: Not Given Prednisone () 40 mg PO DAILY [facility] Stop: 01/14/18 09:01 Last Admin: 01/13/18 10:23 Dose: Not Given Prednisone () 30 mg PO DAILY [facility] Stop: 09/13/18 09:01 Prednisone () 20 mg PO DAILY [facility] Stop: 01/18/18 09:01 Prednisone () 10 mg PO DAILY [facility] Stop: 01/20/18 09:01 01/14/18 neuro workup in progress with MRI completed, results pending, EEG pending. Family and patient wishes to proceed with PEG tube placement. Patient is an add-on for PEG placement today GI. Telemetry sinus rhythm. Received first Nix cream rinse yesterday afternoon for lice. Creatinine 1.55. Objective - Vital Signs Vital signs: Vital Signs Temp 98.0 F 01/14/18 08:50 Pulse 84 01/14/18 08:50 Resp 18 01/14/18 08:50 BP 142/76 01/14/18 08:50 Pulse Ox 94 L 01/14/18 08:50 Intake & Output 01/13/18 01/14/18 01/14/18 18:59 06:59 18:59 Intake Total 100 Balance 100 Weight 87.5 kg Intake: Intake, IV Titration 100 Amount Cefepime 2 gm In Sodium 100 Chloride 0.9% 50 ml @ 100 mls/hr IVPB Q12H [facility] Rx# :[id number] Oral 0 Other: Voiding Method Urinal Urinal Urinal # Voids 2 1 - Exam PHYSICAL EXAM: VITAL SIGNS: As above GENERAL: Sitting up in bed, no acute distress HEENT: Conjunctivae normal. eyes normal. Hard of hearing.head lice NECK: No JVD. No thyroid enlargement. No LNs CARDIOVASCULAR: S1, S2 muffled. Regular, No murmur RESPIRATION: Breath sounds diminished in the bases. No rhonchi or crackles. ABDOMEN: Soft, nontender . No guarding. no masses palpable. Bowel sounds heard. LEGS: trace edema. PSYCHIATRY: Alert and oriented -3, mood and affect normal. NERVOUS SYSTEM: Cranial N 2-12 grossly normal. Moves all 4 limbs. Diffuse weakness No focal deficits. SKIN: No rashes - Labs CBC & Chem 7: 01/14/18 06:19 01/14/18 06:19 Labs: Abnormal Lab Results - Last 24 Hours (Table) 01/13/18 01/14/18 01/14/18 Range/Units 11:50 06:19 06:19 WBC 17.9 H (3.8-10.6) k/uL Neutrophils # 14.9 H (1.3-7.7) k/uL Chloride 110 H (98-107) mmol/L BUN 55 H (9-20) mg/dL Creatinine 1.55 H (0.66-1.25) mg/dL Glucose 101 H (74-99) mg/dL POC Glucose (mg/dL) 132 H (75-99) mg/dL Assessment and Plan Assessment: -Right-sided weakness, possible acute TIA -Possible left lower lobe pneumonia, possibly atelectasis -Leukocytosis, possibly related to the above or reactive-steroids -Acute on chronic renal failure, possibly ATN, baseline 1.6-2 -Dysphagia, failed swallow evaluation, Barium esophagram from last hospitalization reported significant presbyesophagus and pooling of liquid above the GE junction. High risk for aspiration . Possible recurrent CA -Presbyesophagus -Recent non-STEMI, mild troponin leak -COPD- -Diabetes mellitus type 2 -Hypertension -Hyperlipidemia -Degenerative joint disease -melanoma of the skin resected followed by systemic chemotherapy - carotid artery stenosis on the left in the order of 50-69 percent, F/U with Vascular surgery OP Plan: Continue on current medication regime ,monitoring and symptomatic treatment. Awaiting PEG tube placement, NPO, Strict aspiration precautions.MRI results pending. Maintain IV antibiotics. Close monitoring of renal function with repeat labs ordered for a.m. Prognosis guarded given multiple complex medical issues. The impression and plan of care has been dictated as directed. : I performed a history and examination of this patient, discussed the same with the dictator. I agree with the dictator's note ,documented as a scribe. Any additional findings or plans will be noted.
[2018-01-14] MEDS ORDERED: IV FLUID CONTINUATION 500 ML IV ONE (18:00)
[2018-01-14] MEDS ORDERED: PROPOFOL 10 MG/ML 20 ML VIAL IV ONE (18:14)
[2018-01-14] MEDS ORDERED: LACTATED RINGERS 1,000 ML IV ONE (19:06)
--- NOTE | 2018-01-14 19:37 | P.PCN ---
Date of Procedure: 01/14/18 Description of Procedure: BRIEF HISTORY: Patient is a 82-year-old, pleasant, male presents to the hospital with complaints suggestive of a TIA and is currently being seen by the neurology service. He has a history of melanoma for which he has received 2 cycles of chemotherapy. The patient has had symptoms of dysphagia for months and has had previous evaluation with a barium swallow which was suggestive of presbyesophagus and pooling above the gastroesophageal junction. Follow-up EGD was negative for any gross obstructions or abnormalities. On this admission and there was concern that the patient may have aspirated. The patient failed bedside swallow evaluation by the speech therapy service and PEG tube was recommended due to dysphagia and risk of future aspiration. PROCEDURE PERFORMED: Esophagogastroduodenoscopy with PEG tube placement. PREOPERATIVE DIAGNOSIS: Oropharyngeal dysphagia and aspiration, failed evaluation by speech therapy recommending PEG tube. ESTIMATED BLOOD LOSS: Minimal. IV sedation per anesthesia. PROCEDURE: After informed consent was obtained, the patient was brought into the endoscopy unit. IV sedation was administered by Anesthesia under continuous monitoring. Initially the Olympus GIF-190 video endoscope was inserted into the mouth. Esophagus intubated without any difficulty, there was however some tortuosity of the esophagus consistent with the patient's previous diagnosis of presbyesophagus. It was gradually advanced into the stomach and duodenum and carefully examined. The bulb and the second part of the duodenum appeared normal. The scope at this time was withdrawn to the stomach, adequately insufflated with air, and upon careful examination, mucosa of the antrum, body, cardia and the fundus appeared normal. Adequate transillumination was achieved onto the anterior abdominal wall. At the site of adequate transillumination and maximal finger indentation, on the anterior abdominal wall, this area was sterilely prepped and draped. One percent Lidocaine was infiltrated into the skin and a small incision was made. Trocar and cannula was passed through the incision into the stomach cavity. The trocar was removed. The insertion wire was passed through the cannula into the stomach. Insertion wire was snared and then the insertion wire, snare and endoscope were withdrawn from the mouth. The insertion wire was then attached to a [employer] PEG tube. The insertion wire was then pulled with the PEG tube through the incision site. PEG tube was pulled until the internal bolster was sitting snugly against the gastric mucosa which was confirmed with repeat EGD. On repeat EGD the esophagus was intubated without any difficulty and was advanced into the stomach. The internal bumper appeared to be in secure position. The visualized portions of the antrum body cardia and fundus of the stomach appeared normal. The esophagus was carefully examined as the scope was gradually being withdrawn which appeared normal. At this time external bumper was placed on the PEG tube closer to the anterior abdominal wall at 4 cm virgilio. The patient tolerated the procedure well. Impression: Successful 20[employer] PEG tube placement as described above. Recommendations: Findings of this examination were discussed with the patient's family. The patient will be started on tube feeds tomorrow and okay for pills tonight. Post -PEG tube orders were written.
[2018-01-14 20:48] LABS: Glucose,Whole Blood 140 mg/dL (75-99)
[2018-01-14] MEDS: INSULIN DETEMIR 100 UNIT/ML 10 ML VIAL SQ SCH (21:59)
[2018-01-14] MEDS: ATORVASTATIN 80 MG TAB PO SCH (21:59)
[2018-01-15] MEDS: CEFEPIME 2 GM in SODIUM CHLORIDE 0.9% 50 ML IVPB SCH (05:37)
[2018-01-15] MEDS: INSULIN ASPART 100 UNIT/ML 1 ML 10 ML VIAL SQ SCH ×4 (06:18→21:32)
[2018-01-15 06:20] LABS: Glucose,Whole Blood 48 mg/dL (75-99)
[2018-01-15 06:48] LABS: Glucose,Whole Blood 56 mg/dL (75-99)
[2018-01-15 06:52] LABS: Glucose,Whole Blood 55 mg/dL (75-99)
[2018-01-15] MEDS ORDERED: DEXTROSE 50%-WATER 50 ML SYRINGE IVP ONE (06:55)
[2018-01-15] MEDS: CARVEDILOL 6.25 MG TAB PO SCH ×2 (07:03→18:21)
[2018-01-15 07:11] LABS: Calcium 9.1 mg/dL (8.4-10.2); Potassium 4.6 mmol/L (3.5-5.1)
[2018-01-15 07:11] LABS: Glucose,Whole Blood 71 mg/dL (75-99)
[2018-01-15 07:23] LABS: Basophils # (A) 0.1 k/uL (0-0.2); Basophils % (A) 0 %; Eosinophils # (A) 0.2 k/uL (0-0.7); Eosinophils % (A) 1 %; HCT 46.7 % (39.0-53.0); HGB 14.2 gm/dL (13.0-17.5); Hypochromasia Moderate; Lymphocytes # (A) 1.1 k/uL (1.0-4.8); Lymphocytes % (A) 5 %; MCH 29.6 pg (25.0-35.0); MCHC 30.4 g/dL (31.0-37.0); MCV 97.5 fL (80.0-100.0); Mean Platelet Volume 7.6; Monocytes # (A) 1.2 k/uL (0-1.0); Monocytes % (A) 5 %; Neutrophils # (A) 18.8 k/uL (1.3-7.7); Neutrophils % (A) 87 %; Platelet Count 353 k/uL (150-450); RBC 4.79 m/uL (4.30-5.90); RDW 14.3 % (11.5-15.5); WBC 21.5 k/uL (3.8-10.6)
[2018-01-15] MEDS ORDERED: LACTATED RINGERS 1,000 ML IV SCH (07:41)
[2018-01-15 08:17] LABS: Glucose,Whole Blood 120 mg/dL (75-99)
[2018-01-15] MEDS: BETAMETHASONE DIPROPIONATE 0.05% CREAM 15 GM TUBE TOPICAL SCH ×2 (08:40→21:14)
[2018-01-15] MEDS: CLOTRIMAZOLE 1% CREAM 15 GM TUBE TOPICAL SCH ×2 (08:40→21:14)
[2018-01-15] MEDS: AMMONIUM LACTATE 12% CREAM 140 GM TUBE TOPICAL SCH (08:40)
[2018-01-15] MEDS: glipiZIDE 10 MG TAB PO SCH ×2 (08:41→21:32)
[2018-01-15] MEDS: PIOGLITAZONE 45 MG TAB PO SCH (08:41)
[2018-01-15] MEDS: PANTOPRAZOLE 40 MG TABLET PO SCH (08:41)
[2018-01-15] MEDS: MULTIVITAMINS, THERA 1 EACH TAB PO SCH (08:41)
[2018-01-15] MEDS: FUROSEMIDE 40 MG TAB PO SCH (08:41)
[2018-01-15] MEDS: predniSONE 10 MG TAB PO SCH (08:42)
[2018-01-15] MEDS: HEPARIN SODIUM,PORCINE 5,000 UNIT/ML 1 ML VIAL SQ SCH ×2 (08:42→21:05)
[2018-01-15] MEDS: ASPIRIN 81 MG PO SCH (08:43)
[2018-01-15] MEDS: SYMBICORT 160-4.5 MCG INHALER INHALATION SCH ×2 (09:08→19:16)
[2018-01-15] MEDS: IPRATROPIUM-ALBUTEROL 3 ML NEB INHALATION SCH ×4 (09:08→19:11)
[2018-01-15 10:26] VITALS: BMI 27.6
--- NOTE | 2018-01-15 11:06 | P.PN ---
Subjective Progress Note Date: 01/15/18 Principal diagnosis: Dyspnea secondary to suspected aspiration pneumonia This 82-year-old male patient was recently discharged from the hospital and he was readmitted yesterday because of a combination of symptoms including weakness , feeling ill, difficulty in swallowing, right facial/eye droop, and for all this reasons he was brought back and he was given a diagnosis of an aspiration pneumonia in the emergency department. I concur that the patient has some difficulty swallowing as I assessed his swallow here in the hospital at the bedside. He is Nothing by mouth for now. His chest x-ray showed limited infiltration of the left lung base however I think this is atelectasis more than pneumonia. He swallow was evaluated during his last visit. He underwent a barium swallow and he was diagnosed having passed by esophagus with stasis of contrast within the esophagus. Has the possibility of aspiration was likely. The patient had also a GI evaluation with an EGD and there was no acute abnormalities noted. There is also concern that the patient is having TIA/CVA. Carotid Dopplers were done and the patient was found to have 50-69% stenosis of the left internal carotid artery. At this point in time a do not appreciate any focal neurological deficit nor there is any facial asymmetry. His motor function is symmetrical bilaterally. His speech is also the same per the family however is very hard to critically care with the patient because he has extensive hearing difficulties. The patient denies having any chest pain. He was placed on empiric antibiotic coverage with a combination of cefepime and vancomycin. He is also completing a prednisone burst taper. Note that during his last admission he was discharged home on Augmentin. He is still complaining of some fatigue. Troponin is a minimally elevated. No other issues for now. He also states that he has a history of melanoma and he is receiving systemic chemotherapy. The lesion was undergone. Resected and apparently was in the regional lymph nodes. No further details on his cancer treatment. Is complaining of pain in his neck area. 01/13/2018 the patient is seen this morning for a follow-up. He still having difficulty in swallowing. He failed a swallow evaluation at the bedside and patient is currently nothing by mouth. The patient was seen by neurology and further workup will be done including an MRI of the brain and vascular Dopplers. No respiratory difficulties. No cough sputum production. He was hospitalized for a suspicion of pneumonia although this is not absolutely clear to me at this point and I stopped his and the antibiotics and kept him on an IV cefepime only. He is also on a prednisone burst taper which she is still working on from his last admission. He was seen by vascular surgery and the plan is a CT angiogram at a later stage on outpatient basis.. The patient was also evaluated by neurology. Consultation is being given for TIA/CVA. Another possibility is GENERAL COUNSEL metastases from a primary melanoma. MRI of the brain will be needed to explain further his chronic/ongoing dysphagia. On 01/14/2018 the patient is seen again in follow-up on the selective care unit. He is awake and alert. He is currently sitting up in a chair at the bedside. He is maintaining good O2 saturations in the 90s on room air. He's been afebrile. Hemodynamically stable. There has been ongoing concern regarding possible aspiration. He may need a PEG tube insertion. GI service is following. White count 17.9. Hemoglobin 14.5. Creatinine 1.55. MRI of the brain revealed age-related changes of atrophy and probable chronic small vessel ischemia. Indeterminate left parotid mass\ The patient is seen again today 01/15/2018 in follow-up on the selective care unit. He is currently resting comfortably in bed. He is somewhat disoriented to place and time this morning. He has no pulmonary complaints. He continues to maintain good O2 saturations in the 90s on room air. He's been afebrile. He did undergo PEG tube insertion yesterday. Objective - Vital Signs Vital signs: Vital Signs Temp 97.6 F 01/15/18 08:45 Pulse 84 01/15/18 08:45 Resp 18 01/15/18 08:45 BP 129/60 01/15/18 08:45 Pulse Ox 96 01/15/18 08:45 Intake & Output 01/14/18 01/15/18 01/15/18 18:59 06:59 18:59 Intake Total 300 120 Output Total 400 350 Balance -100 -230 Weight 87.5 kg 87.5 kg Intake: IV 250 120 0.9 120 Intake, IV Titration 50 Amount Cefepime 2 gm In Sodium 50 Chloride 0.9% 50 ml @ 100 mls/hr IVPB Q12H [facility] Rx# :[id number] Oral 0 Output: Urine 400 350 Other: Voiding Method Urinal Urinal Urinal # Voids 1 1 - Exam General Impression: Alert and oriented, however the patient is extremely hard of hearing, could not maintain an adequate conversation with the patient and no family members at bedside. HEENT: PERRLA, EOMI, no icterus, no neck masses, no JVD. No stridor. No lymphadenopathy. Cardiovascular: Irregular irregular rhythm, normal S1&S2 audible, no murmurs, rubs or gallops Chest: Lungs clear to auscultation bilaterally, no rhonchi, no wheeze, no rales Abdomen: Bowel sounds present, abdomen soft, non-tender, non-distended, no organomegaly. PEG tube exit site is clean and dry. Musculoskeletal: Pulses present and equal in all extremities, trace of peripheral edema noted. Motor: Moves all tremors grossly Neurological: CN II-XII grossly intact, extremely hard of hearing, no focal neurological deficit and the patient is moving all 4 extremities without any limitation Skin: Intact with no visualized rashes Psych: Normal affect and mood - Labs CBC & Chem 7: 01/15/18 06:12 01/15/18 06:12 Labs: Abnormal Lab Results - Last 24 Hours (Table) 01/14/18 01/14/18 01/14/18 Range/Units 11:47 14:45 16:25 WBC (3.8-10.6) k/uL MCHC (31.0-37.0) g/dL Neutrophils # (1.3-7.7) k/uL Monocytes # (0-1.0) k/uL Chloride (98-107) mmol/L Carbon Dioxide (22-30) mmol/L BUN (9-20) mg/dL Creatinine (0.66-1.25) mg/dL Glucose (74-99) mg/dL POC Glucose (mg/dL) 108 H 119 H 111 H (75-99) mg/dL 01/14/18 01/15/18 01/15/18 Range/Units 20:46 06:12 06:12 WBC 21.5 H (3.8-10.6) k/uL MCHC 30.4 L (31.0-37.0) g/dL Neutrophils # 18.8 H (1.3-7.7) k/uL Monocytes # 1.2 H (0-1.0) k/uL Chloride 114 H (98-107) mmol/L Carbon Dioxide 21 L (22-30) mmol/L BUN 56 H (9-20) mg/dL Creatinine 1.69 H (0.66-1.25) mg/dL Glucose 46 L* (74-99) mg/dL POC Glucose (mg/dL) 140 H (75-99) mg/dL 01/15/18 01/15/18 01/15/18 Range/Units 06:16 06:37 06:50 WBC (3.8-10.6) k/uL MCHC (31.0-37.0) g/dL Neutrophils # (1.3-7.7) k/uL Monocytes # (0-1.0) k/uL Chloride (98-107) mmol/L Carbon Dioxide (22-30) mmol/L BUN (9-20) mg/dL Creatinine (0.66-1.25) mg/dL Glucose (74-99) mg/dL POC Glucose (mg/dL) 48 L 56 L 55 L (75-99) mg/dL 01/15/18 01/15/18 Range/Units 07:10 07:57 WBC (3.8-10.6) k/uL MCHC (31.0-37.0) g/dL Neutrophils # (1.3-7.7) k/uL Monocytes # (0-1.0) k/uL Chloride (98-107) mmol/L Carbon Dioxide (22-30) mmol/L BUN (9-20) mg/dL Creatinine (0.66-1.25) mg/dL Glucose (74-99) mg/dL POC Glucose (mg/dL) 71 L 120 H (75-99) mg/dL Assessment and Plan Assessment: Assessment 1 multitude of complaints, majority nonspecific. Admitted for aspiration/ healthcare associated pneumonia, although this is not absolutely clear to me. I realize the patient has some limited infiltration of left lung base. This may be atelectatic in nature. No worsening in oxygenation and in fact the patient is on room air oxygen. No respiratory distress. No significant cough or sputum production. 2 high-risk for pulmonary aspiration status post PEG tube placement. 3 chronic dysphagia workup has been negative during his last admission, may need further investigation including the possibility of recurrent CVA or even GENERAL COUNSEL lesions from primary skin cancer such as melanoma 4 melanoma of the skin resected followed by systemic chemotherapy 5 neck pain 6 diabetes mellitus 7 chronic renal failure 8 impaired hearing with difficulty in communication 9 hypertension 10 hyperlipidemia 11 vitiligo 12 carotid artery stenosis on the left in the order of 50-69 percent 13 chronic renal failure 14 mild leukocytosis 15 mild troponin leak Plan The patient was seen and evaluated by Dr. Nelson. He is currently stable from the pulmonary standpoint. We'll continue with DuoNeb's and Symbicort. We will follow the patient on as-needed basis. I, the cosigning physician, performed a history & physical examination of the patient. Lungs sounds are clear. Maintaining good O2 saturations in the 90s on room air. I discussed the assessment and plan of care with my nurse practitioner, Theresa Dias. I attest to the above note as dictated by her.
[2018-01-15 11:29] LABS: Glucose,Whole Blood 164 mg/dL (75-99)
--- NOTE | 2018-01-15 12:06 | P.PN ---
Subjective Progress Note Date: 01/15/18 Principal diagnosis: oropharyngeal dysphagia aspiration Admitted with symptoms of TIA history of melanoma status post 2 cycles of chemotherapy Symptoms of dysphagia for monthswith failed speech evaluation. Status post insertion of PEG tube yesterday. Presently no complaints. WBC increased to 21.5. Afebrile. Denies abdominal pain. Objective - Vital Signs Vital signs: Vital Signs Temp 97.6 F 01/15/18 08:45 Pulse 82 01/15/18 11:58 Resp 18 01/15/18 11:34 BP 129/60 01/15/18 08:45 Pulse Ox 96 01/15/18 08:45 Intake & Output 01/14/18 01/15/18 01/15/18 18:59 06:59 18:59 Intake Total 300 120 60 Output Total 400 350 Balance -100 -230 60 Weight 87.5 kg 87.5 kg Intake: IV 250 120 0.9 120 Intake, IV Titration 50 Amount Cefepime 2 gm In Sodium 50 Chloride 0.9% 50 ml @ 100 mls/hr IVPB Q12H [facility] Rx# :[id number] Oral 0 Tube Feeding 60 Output: Urine 400 350 Other: Voiding Method Urinal Urinal Urinal # Voids 1 1 - Exam General appearance: The patient is alert, oriented, in no acute distress. HET: Head is normocephalic and atraumatic. Pupils are equal and reactive. Oropharynx is clear without lesions. Neck: Supple without lymphadenopathy. Trachea midline. Heart: S1 S2. Regular rate and rhythm. Lungs: No crackles or wheezes are heard. Abdomen: Soft, nontender, nondistended with bowel sounds. PEG tube intact without erythema drainage or bleeding. No peritoneal signs. No palpable organomegaly or masses. Extremities: Normal skin color and turgor. No cyanosis, rash, ulceration, clubbing, or edema. Radial and pedal pulses are 2/4 bilaterally. Neurological: No focal deficits. Strength and sensation are grossly intact. - Labs CBC & Chem 7: 01/15/18 06:12 01/15/18 06:12 Labs: Abnormal Lab Results - Last 24 Hours (Table) 01/14/18 01/14/18 01/14/18 Range/Units 14:45 16:25 20:46 WBC (3.8-10.6) k/uL MCHC (31.0-37.0) g/dL Neutrophils # (1.3-7.7) k/uL Monocytes # (0-1.0) k/uL Chloride (98-107) mmol/L Carbon Dioxide (22-30) mmol/L BUN (9-20) mg/dL Creatinine (0.66-1.25) mg/dL Glucose (74-99) mg/dL POC Glucose (mg/dL) 119 H 111 H 140 H (75-99) mg/dL 01/15/18 01/15/18 01/15/18 Range/Units 06:12 06:12 06:16 WBC 21.5 H (3.8-10.6) k/uL MCHC 30.4 L (31.0-37.0) g/dL Neutrophils # 18.8 H (1.3-7.7) k/uL Monocytes # 1.2 H (0-1.0) k/uL Chloride 114 H (98-107) mmol/L Carbon Dioxide 21 L (22-30) mmol/L BUN 56 H (9-20) mg/dL Creatinine 1.69 H (0.66-1.25) mg/dL Glucose 46 L* (74-99) mg/dL POC Glucose (mg/dL) 48 L (75-99) mg/dL 01/15/18 01/15/18 01/15/18 Range/Units 06:37 06:50 07:10 WBC (3.8-10.6) k/uL MCHC (31.0-37.0) g/dL Neutrophils # (1.3-7.7) k/uL Monocytes # (0-1.0) k/uL Chloride (98-107) mmol/L Carbon Dioxide (22-30) mmol/L BUN (9-20) mg/dL Creatinine (0.66-1.25) mg/dL Glucose (74-99) mg/dL POC Glucose (mg/dL) 56 L 55 L 71 L (75-99) mg/dL 01/15/18 01/15/18 Range/Units 07:57 11:28 WBC (3.8-10.6) k/uL MCHC (31.0-37.0) g/dL Neutrophils # (1.3-7.7) k/uL Monocytes # (0-1.0) k/uL Chloride (98-107) mmol/L Carbon Dioxide (22-30) mmol/L BUN (9-20) mg/dL Creatinine (0.66-1.25) mg/dL Glucose (74-99) mg/dL POC Glucose (mg/dL) 120 H 164 H (75-99) mg/dL Assessment and Plan (1) Status post insertion of percutaneous endoscopic gastrostomy (PEG) tube Current Visit: Yes Status: Acute Code(s): Z93.1 - GASTROSTOMY STATUS SNOMED Code(s): 537276440 (2) Dysphagia Current Visit: Yes Status: Acute Code(s): R13.10 - DYSPHAGIA, UNSPECIFIED SNOMED Code(s): 61132394 (3) HCAP (healthcare-associated pneumonia) Current Visit: Yes Status: Acute Code(s): J18.9 - PNEUMONIA, UNSPECIFIED ORGANISM SNOMED Code(s): 366039877 (4) Leukocytosis Current Visit: Yes Status: Acute Code(s): D72.829 - ELEVATED WHITE BLOOD CELL COUNT, UNSPECIFIED SNOMED Code(s): 360996885 Plan: 1. Increased leukocytosis without fever or abdominal complaints. CBC in a.m. Multiple consultants following. Dietitian consultation. May use PEG tube today for tube feeds and medications today per dietitian's recommendations. Assessment and plan of care discussed with Dr. Sanches
[2018-01-15 17:33] LABS: Glucose,Whole Blood 158 mg/dL (75-99)
--- NOTE | 2018-01-15 18:46 | P.PN ---
Subjective Progress Note Date: 01/15/18 Progress note being dictated Interval history: This is an 82-year-old gentleman admitted with right-sided weakness, possible TIA, possible left lower lobe pneumonia, LICE, carotid stenosis and multiple other medical issues. Maintained on cefepime. Evaluated by vascular surgery, recommendations of follow-up CT angiogram OP. Maintained on broad-spectrum IV antibiotics. Difficulty swallowing, evaluated by speech therapy, NPO status recommended.Barium esophagram from last hospitalization reported significant presbyesophagus and pooling of liquid above the GE junction. Evaluated by GI, possible PEG tube placement. Workup in progress with MRI pending. Renal function slowly improving. Denies shortness of breath , maintaining O2 sats in the mid 90s, no cough. Review of systems: CONSTITUTIONAL: fatigue. Denies weight loss, fevers or chills, no night sweats HEENT: Itchy scalp, LICE CARDIOVASCULAR: No chest pain, orthopnea, no palpitations, no syncope. PULMONARY: No shortness of breath, no cough, no hemoptysis. GASTROINTESTINAL: Dysphagia, regurgitation ,no abdominal pain. Normoactive bowel sounds. NEUROLOGICAL: Improving right-sided weakness, no headache, no focal deficits HEMATOLOGICAL: Denies any bleeding or petechiae. GENITOURINARY: Denies any burning micturition, frequency, or urgency. . ENDOCRINE: Denies any polyuria or polydipsia. PSYCHIATRIC: No anxiety, no depression The rest of the 14 point review of systems is negative Active Medications Acetaminophen (Tylenol Tab) 500 mg PO TID PRN PRN Reason: Pain or Fever > 100.5 Last Admin: 01/12/18 22:48 Dose: 500 mg Albuterol/Ipratropium (Duoneb 0.5 Mg-3 Mg/3 Ml Soln) 3 ml INHALATION RT-QID [facility] Last Admin: 01/13/18 16:46 Dose: Not Given Aspirin (Aspirin) 81 mg PO DAILY [facility] Last Admin: 01/13/18 10:22 Dose: Not Given Atorvastatin Calcium (Lipitor) 80 mg PO HS [facility] Last Admin: 01/12/18 20:29 Dose: 80 mg Betamethasone Dipropionate (Diprolene Af) 1 applic TOPICAL BID [facility] Last Admin: 01/13/18 09:46 Dose: Not Given Budesonide/Formoterol Fumarate (Symbicort 160-4.5 Mcg Inhaler) 2 puff INHALATION BID [facility] Last Admin: 01/13/18 07:13 Dose: 2 puff Carvedilol (Coreg) 6.25 mg PO BID-W/MEALS [facility] Last Admin: 01/13/18 16:47 Dose: Not Given Clotrimazole (Lotrimin Cream) 1 applic TOPICAL BID [facility] Last Admin: 01/13/18 09:46 Dose: Not Given Furosemide (Lasix) 40 mg PO DAILY [facility] Last Admin: 01/13/18 10:22 Dose: Not Given Glipizide (Glucotrol) 10 mg PO BID [facility] Last Admin: 01/13/18 10:22 Dose: Not Given Heparin Sodium (Porcine) (Heparin) 5,000 unit SQ Q12HR [facility] Last Admin: 01/13/18 10:00 Dose: 5,000 unit Cefepime HCl 2 gm/ Sodium (Chloride) 50 mls @ 100 mls/hr IVPB Q12H [facility] Last Admin: 01/13/18 16:41 Dose: 100 mls/hr Insulin Aspart (Novolog) 0 unit SQ ACHS [facility]; Protocol Last Admin: 01/13/18 16:40 Dose: Not Given Insulin Detemir (Levemir) 35 unit SQ HS [facility] Last Admin: 01/12/18 20:46 Dose: 35 unit Lactic Acid (Ammonium Lactate) 1 applic TOPICAL DAILY [facility] Last Admin: 01/13/18 09:46 Dose: Not Given Multivitamins (Theragran) 1 each PO DAILY@1200 [facility] Last Admin: 01/13/18 10:23 Dose: Not Given Naloxone HCl (Narcan) 0.2 mg IV Q2M PRN PRN Reason: Opioid Reversal Pantoprazole Sodium (Protonix) 40 mg PO DAILY [facility] Last Admin: 01/13/18 10:22 Dose: Not Given Permethrin (Nix Creme Rinse) 59 ml TOPICAL ONCE PRN PRN Reason: Head lice Last Admin: 01/13/18 14:15 Dose: 59 ml Pioglitazone HCl (Actos) 45 mg PO DAILY [facility] Last Admin: 01/13/18 10:23 Dose: Not Given Prednisone () 40 mg PO DAILY [facility] Stop: 01/14/18 09:01 Last Admin: 01/13/18 10:23 Dose: Not Given Prednisone () 30 mg PO DAILY [facility] Stop: 09/13/18 09:01 Prednisone () 20 mg PO DAILY [facility] Stop: 01/18/18 09:01 Prednisone () 10 mg PO DAILY [facility] Stop: 01/20/18 09:01 01/14/18 neuro workup in progress with MRI completed, results pending, EEG pending. Family and patient wishes to proceed with PEG tube placement. Patient is an add-on for PEG placement today GI. Telemetry sinus rhythm. Received first Nix cream rinse yesterday afternoon for lice. Creatinine 1.55. 01/15/18 status post PEG tube placement yesterday. Pleasantly confused, hard of hearing . Pain controlled, denies chest pain, palpitations or increasing shortness of breath. Denies lightheadedness dizziness or focal deficits. Denies nausea or vomiting. MRI reported chronic small vessel ischemia, indeterminate left parotid mass. Afebrile, WBC 21.5-on steroids. Active Medications Generic Name Dose Route Start Last Admin Trade Name Freq PRN Reason Stop Dose Admin Acetaminophen 500 mg 01/12/18 01:17 01/12/18 22:48 Tylenol Tab PO 500 mg TID PRN Administration Pain or Fever > 100.5 Albuterol/Ipratropium 3 ml 01/12/18 08:00 01/15/18 16:02 Duoneb 0.5 Mg-3 Mg/3 Ml Soln INHALATION 3 ml RT-QID [facility] Administration Aspirin 81 mg 01/12/18 09:00 01/15/18 08:43 Aspirin PO 81 mg DAILY [facility] Administration Atorvastatin Calcium 80 mg 01/12/18 21:00 01/14/18 21:59 Lipitor PO 80 mg HS [facility] Administration Betamethasone Dipropionate 1 applic 01/12/18 09:00 01/15/18 08:40 Diprolene Af TOPICAL Not Given BID [facility] Budesonide/Formoterol Fumarate 2 puff 01/12/18 09:00 01/15/18 09:08 Symbicort 160-4.5 Mcg Inhaler INHALATION Not Given BID [facility] Carvedilol 6.25 mg 01/12/18 07:30 01/15/18 07:03 Coreg PO 6.25 mg BID-W/MEALS [facility] Administration Clotrimazole 1 applic 01/12/18 09:00 01/15/18 08:40 Lotrimin Cream TOPICAL Not Given BID [facility] Furosemide 40 mg 01/12/18 09:00 01/15/18 08:41 Lasix PO 40 mg DAILY [facility] Administration Glipizide 10 mg 01/12/18 09:00 01/15/18 08:41 Glucotrol PO Not Given BID [facility] Heparin Sodium (Porcine) 5,000 unit 01/12/18 21:00 01/15/18 08:42 Heparin SQ 5,000 unit Q12HR [facility] Administration Cefepime HCl 2 gm/ Sodium 50 mls @ 100 mls/hr 01/13/18 18:00 01/15/18 05:37 Chloride IVPB 100 mls/hr Q12H [facility] Administration Lactated Ringer's 1,000 mls @ 20 mls/hr 01/15/18 07:41 01/15/18 08:40 Lactated Ringers IV Not Given .Q24H [facility] Insulin Aspart 0 unit 01/12/18 07:30 01/15/18 12:30 Novolog SQ Not Given ACHS [facility] Protocol Insulin Detemir 35 unit 01/12/18 21:00 01/14/18 21:59 Levemir SQ 35 unit HS [facility] Administration Lactic Acid 1 applic 01/12/18 09:00 01/15/18 08:40 Ammonium Lactate TOPICAL Not Given DAILY [facility] Multivitamins 1 each 01/12/18 12:00 01/15/18 08:41 Theragran PO 1 each DAILY@1200 [facility] Administration Naloxone HCl 0.2 mg 01/11/18 21:02 Narcan IV Q2M PRN Opioid Reversal Pantoprazole Sodium 40 mg 01/12/18 09:00 01/15/18 08:41 Protonix PO 40 mg DAILY [facility] Administration Permethrin 59 ml 01/13/18 11:59 01/13/18 14:15 Nix Creme Rinse TOPICAL 59 ml ONCE PRN Administration Head lice Pioglitazone HCl 45 mg 01/12/18 09:00 01/15/18 08:41 Actos PO 45 mg DAILY [facility] Administration Prednisone 30 mg 01/14/18 09:00 01/15/18 08:42 PO 01/16/18 09:01 30 mg DAILY [facility] Administration Prednisone 20 mg 01/16/18 09:00 PO 01/18/18 09:01 DAILY [facility] Prednisone 10 mg 01/18/18 09:00 PO 01/20/18 09:01 DAILY [facility] Objective - Vital Signs Vital signs: Vital Signs Temp 97.0 F L 01/15/18 16:41 Pulse 76 01/15/18 16:51 Resp 16 01/15/18 16:51 BP 112/79 01/15/18 16:00 Pulse Ox 93 L 01/15/18 16:04 Intake & Output 01/14/18 01/15/18 01/15/18 18:59 06:59 18:59 Intake Total 300 120 390 Output Total 400 350 775 Balance -100 -230 -385 Weight 87.5 kg 87.5 kg Intake: IV 250 120 0.9 120 Intake, IV Titration 50 250 Amount Cefepime 2 gm In Sodium 50 250 Chloride 0.9% 50 ml @ 100 mls/hr IVPB Q12H [facility] Rx# :[id number] Oral 0 Tube Feeding 140 Output: Urine 400 350 775 Other: Voiding Method Urinal Urinal Urinal # Voids 1 1 2 - Exam PHYSICAL EXAM: VITAL SIGNS: As above GENERAL: Sitting up in chair, no acute distress HEENT: Conjunctivae normal. eyes normal. Hard of hearing.head shaved. NECK: No JVD. No thyroid enlargement. No LNs CARDIOVASCULAR: S1, S2 muffled. Regular, No murmur RESPIRATION: Breath sounds diminished in the bases. No rhonchi or crackles. ABDOMEN: Soft, nontender . No guarding. no masses palpable. Bowel sounds heard. PEG tube present. LEGS: trace edema. PSYCHIATRY: Alert and oriented -3, mood and affect normal. NERVOUS SYSTEM: Cranial N 2-12 grossly normal. Moves all 4 limbs. Diffuse weakness No focal deficits. SKIN: No rashes - Labs CBC & Chem 7: 01/15/18 06:12 01/15/18 06:12 Labs: Abnormal Lab Results - Last 24 Hours (Table) 01/14/18 01/15/18 01/15/18 Range/Units 20:46 06:12 06:12 WBC 21.5 H (3.8-10.6) k/uL MCHC 30.4 L (31.0-37.0) g/dL Neutrophils # 18.8 H (1.3-7.7) k/uL Monocytes # 1.2 H (0-1.0) k/uL Chloride 114 H (98-107) mmol/L Carbon Dioxide 21 L (22-30) mmol/L BUN 56 H (9-20) mg/dL Creatinine 1.69 H (0.66-1.25) mg/dL Glucose 46 L* (74-99) mg/dL POC Glucose (mg/dL) 140 H (75-99) mg/dL 01/15/18 01/15/18 01/15/18 Range/Units 06:16 06:37 06:50 WBC (3.8-10.6) k/uL MCHC (31.0-37.0) g/dL Neutrophils # (1.3-7.7) k/uL Monocytes # (0-1.0) k/uL Chloride (98-107) mmol/L Carbon Dioxide (22-30) mmol/L BUN (9-20) mg/dL Creatinine (0.66-1.25) mg/dL Glucose (74-99) mg/dL POC Glucose (mg/dL) 48 L 56 L 55 L (75-99) mg/dL 01/15/18 01/15/18 01/15/18 Range/Units 07:10 07:57 11:28 WBC (3.8-10.6) k/uL MCHC (31.0-37.0) g/dL Neutrophils # (1.3-7.7) k/uL Monocytes # (0-1.0) k/uL Chloride (98-107) mmol/L Carbon Dioxide (22-30) mmol/L BUN (9-20) mg/dL Creatinine (0.66-1.25) mg/dL Glucose (74-99) mg/dL POC Glucose (mg/dL) 71 L 120 H 164 H (75-99) mg/dL 01/15/18 Range/Units 17:28 WBC (3.8-10.6) k/uL MCHC (31.0-37.0) g/dL Neutrophils # (1.3-7.7) k/uL Monocytes # (0-1.0) k/uL Chloride (98-107) mmol/L Carbon Dioxide (22-30) mmol/L BUN (9-20) mg/dL Creatinine (0.66-1.25) mg/dL Glucose (74-99) mg/dL POC Glucose (mg/dL) 158 H (75-99) mg/dL Assessment and Plan Assessment: -Right-sided weakness, possible acute TIA -Possible left lower lobe pneumonia, possibly atelectasis -Leukocytosis, possibly related to the above or reactive-steroids -Acute on chronic renal failure, possibly ATN, baseline 1.6-2 -Dysphagia, failed swallow evaluation, Barium esophagram from last hospitalization reported significant presbyesophagus and pooling of liquid above the GE junction. High risk for aspiration . Possible recurrent CA. Status post PEG tube placement -Recent non-STEMI, mild troponin leak -COPD- -Diabetes mellitus type 2 -Hypertension -Hyperlipidemia -Degenerative joint disease -melanoma of the skin resected followed by systemic chemotherapy - carotid artery stenosis on the left in the order of 50-69 percent, F/U with Vascular surgery OP -Left parotid mass , indeterminate Plan: Continue on current medication regime , antibiotics ,monitoring and symptomatic treatment. NPO, Strict aspiration precautions. PEG tube feeding initiated. Prognosis guarded given multiple complex medical issues. Discharge planning in progress for subacute rehab. The impression and plan of care has been dictated as directed. : I performed a history and examination of this patient, discussed the same with the dictator. I agree with the dictator's note ,documented as a scribe. Any additional findings or plans will be noted.
[2018-01-15 20:49] LABS: Glucose,Whole Blood 175 mg/dL (75-99)
[2018-01-15] MEDS: CEFDINIR 300 MG CAP PO SCH (21:05)
[2018-01-15] MEDS: ATORVASTATIN 80 MG TAB PO SCH (21:05)
[2018-01-15] MEDS: INSULIN DETEMIR 100 UNIT/ML 10 ML VIAL SQ SCH (21:33)
[2018-01-16 02:18] LABS: Glucose,Whole Blood 128 mg/dL (75-99)
[2018-01-16 04:00] VITALS: RESP 18
--- NOTE | 2018-01-16 05:22 | EEG ---
ELECTROENCEPHALOGRAM REPORT DATE OF EE01/15/2018 ELECTROENCEPHALOGRAPHIC EXAMINATION REPORT: INDICATION FOR EXAMINATION: This patient is an 82-year-old male being evaluated for right-sided facial droop and right-sided weakness. The patient with possible TIA versus stroke. The patient also has history of skin cancer with melanoma. AGE: [age]. EEG FINDINGS: A routine 21 channel awake digital EEG recording was accomplished utilizing the 10-20 international system with bipolar and referential montages. The background activity in the most alert resting state consists of a low to medium amplitude, fairly well developed and well sustained 5-6 Hz activity over the posterior head regions. This posterior rhythm attenuates to eye opening. There is a small amount of low amplitude 18-20 Hz beta activity seen maximally over the anterior head regions. Muscle and movement artifact was observed on several occasions during the tracing. Hyperventilation was not performed. Photic stimulation at flash frequencies of 2-30 Hz produced a good symmetrical occipital driving response. No epileptiform discharges were seen. IMPRESSION: This EEG is moderately abnormal in diffuse fashion due to slowing of the EEG background. The EEG failed to reveal any focal, lateralized, or epileptiform abnormalities. Clinical correlation is recommended. MMODL / IJN: [id number] /
[2018-01-16 06:13] LABS: Glucose,Whole Blood 78 mg/dL (75-99)
[2018-01-16] MEDS: INSULIN ASPART 100 UNIT/ML 1 ML 10 ML VIAL SQ SCH ×2 (06:20→11:59)
[2018-01-16 06:28] LABS: Basophils # (A) 0.1 k/uL (0-0.2); Basophils % (A) 0 %; Eosinophils # (A) 0.3 k/uL (0-0.7); Eosinophils % (A) 1 %; HCT 45.1 % (39.0-53.0); HGB 13.9 gm/dL (13.0-17.5); Lymphocytes # (A) 1.1 k/uL (1.0-4.8); Lymphocytes % (A) 5 %; MCH 28.8 pg (25.0-35.0); MCHC 30.8 g/dL (31.0-37.0); MCV 93.5 fL (80.0-100.0); Mean Platelet Volume 7.9; Monocytes # (A) 1.2 k/uL (0-1.0); Monocytes % (A) 5 %; Neutrophils # (A) 20.2 k/uL (1.3-7.7); Neutrophils % (A) 88 %; Platelet Count 363 k/uL (150-450); RBC 4.83 m/uL (4.30-5.90); RDW 14.5 % (11.5-15.5)
[2018-01-16] MEDS: CARVEDILOL 6.25 MG TAB PO SCH (06:33)
[2018-01-16 06:40] LABS: Calcium 9.3 mg/dL (8.4-10.2); Potassium 4.4 mmol/L (3.5-5.1)
[2018-01-16] MEDS: CEFEPIME 2 GM in SODIUM CHLORIDE 0.9% 50 ML IVPB SCH (06:52)
[2018-01-16] MEDS: AMMONIUM LACTATE 12% CREAM 140 GM TUBE TOPICAL SCH (08:50)
[2018-01-16] MEDS: SYMBICORT 160-4.5 MCG INHALER INHALATION SCH (08:50)
[2018-01-16] MEDS: IPRATROPIUM-ALBUTEROL 3 ML NEB INHALATION SCH ×3 (08:50→16:29)
[2018-01-16] MEDS: CLOTRIMAZOLE 1% CREAM 15 GM TUBE TOPICAL SCH (08:51)
[2018-01-16] MEDS: BETAMETHASONE DIPROPIONATE 0.05% CREAM 15 GM TUBE TOPICAL SCH (08:51)
[2018-01-16] MEDS: MULTIVITAMINS, THERA 1 EACH TAB PO SCH (08:51)
[2018-01-16] MEDS: PIOGLITAZONE 45 MG TAB PO SCH (08:53)
[2018-01-16] MEDS: glipiZIDE 10 MG TAB PO SCH (08:53)
[2018-01-16] MEDS: HEPARIN SODIUM,PORCINE 5,000 UNIT/ML 1 ML VIAL SQ SCH (08:53)
[2018-01-16] MEDS: PANTOPRAZOLE 40 MG TABLET PO SCH (08:54)
[2018-01-16] MEDS: ASPIRIN 81 MG PO SCH (08:54)
[2018-01-16] MEDS: FUROSEMIDE 40 MG TAB PO SCH (08:54)
[2018-01-16] MEDS: CEFDINIR 300 MG CAP PO SCH (08:54)
[2018-01-16] MEDS ORDERED: predniSONE 20 MG TAB PO SCH (09:00)
[2018-01-16] MEDS ORDERED: predniSONE 10 MG TAB PO SCH (09:00)
--- NOTE | 2018-01-16 09:21 | CDI ---
Last Revision, April 2017 Documentation Clarification Form Date: 01/14/2018 4:05:00 PM From: Allison MartinezTIM, CCDS Admit Date: 01/11/2018 9:02:00 PM Patient Name: Natanael Jay Visit Number: [id number] Discharge Date: 01/16/2018 ATTENTION: The Clinical Documentation Specialists (CDI) and [facility] Coding Staff appreciate your assistance in clarifying documentation. Please respond to the clarification below the line at the bottom and electronically sign. The CDI & [facility] Coding staff will review the response and follow-up if needed. Please note: Queries are made part of the Legal Health Record. If you have any questions, please contact the author of this message via ITS. Fuad Chang MD: Per the H/P: "History of recent acute non ST elevation myocardial infarction." The patient presented with weakness & right side facial drooping, diagnosed with possible TIA & possible LLL pneumonia. Patient history/risk factors: CA, COPD, Presbyesophagus, Chronic Atrial Fibrillation, DM II, CKD III, Hypertension & Hyperlipidemia. Clinical Indicators: Lab findings: WBC 21.6, Neut 18.3, Troponins: 0.097^^, 0.087^^, 0.099^^; CKMB 53.9^, 58.6^. Radiology findings: CXR: RLL consolidation adjacent to the diaphragm, correlate for pneumonia. Vital Signs: T 97.9, P 91, R 20, BP 151/83, PO 96 ra Treatment: IV Cefepime, IV Vancomycin, IV fl bolus, Albuterol INH, Symbicort INH , O2 2Lnc. Consults: Cardiology: also documented recent CA In your professional opinion, can you please clarify the timeframe of the patient's recent myocardial infarction? Myocardial Infarction: > 4 weeks from the date of this admission Myocardial Infarction: < 4 weeks from the date of this admission Other, please specify Unable to determine Unable to determine 01/17 Unable to determine 01/20 Unable to determine 01/22Unable to determine MTDD
[2018-01-16] MEDS: ACETAMINOPHEN TAB 500 MG TAB PO PRN (10:11)
--- NOTE | 2018-01-16 10:29 | P.PN ---
Subjective Progress Note Date: 01/16/18 Principal diagnosis: oropharyngeal dysphagia aspiration Admitted with symptoms of TIA history of melanoma status post 2 cycles of chemotherapy Symptoms of dysphagia for months with failed speech evaluation. Status post insertion of PEG tube Saturday. Presently no complaints. WBC increased to 23. Afebrile. Denies abdominal pain. Tolerating Tube feeds at 30 cc /hr. Objective - Vital Signs Vital signs: Vital Signs Temp 97.6 F 01/16/18 08:47 Pulse 79 01/16/18 08:48 Resp 18 01/16/18 08:48 BP 130/66 01/16/18 08:47 Pulse Ox 98 01/16/18 08:47 Intake & Output 01/15/18 01/16/18 01/16/18 18:59 06:59 18:59 Intake Total 390 240 30 Output Total 775 175 Balance -385 65 30 Weight 87.5 kg 87.2 kg Intake: Intake, IV Titration 250 Amount Cefepime 2 gm In Sodium 250 Chloride 0.9% 50 ml @ 100 mls/hr IVPB Q12H [facility] Rx# :[id number] Tube Feeding 140 240 30 Output: Urine 775 175 Other: Voiding Method Urinal Urinal Urinal # Voids 2 450 - Exam General appearance: The patient is alert, oriented, in no acute distress. HET: Head is normocephalic and atraumatic. Pupils are equal and reactive. Oropharynx is clear without lesions. Neck: Supple without lymphadenopathy. Trachea midline. Heart: S1 S2. Regular rate and rhythm. Lungs: No crackles or wheezes are heard. Abdomen: Soft, nontender, nondistended with bowel sounds. PEG tube intact without erythema drainage or bleeding. Tube feedings infusing. No peritoneal signs. No palpable organomegaly or masses. Extremities: Normal skin color and turgor. No cyanosis, rash, ulceration, clubbing, or edema. Radial and pedal pulses are 2/4 bilaterally. Neurological: No focal deficits. Strength and sensation are grossly intact. - Labs CBC & Chem 7: 01/16/18 06:06 01/16/18 06:06 Labs: Abnormal Lab Results - Last 24 Hours (Table) 01/15/18 01/15/18 01/15/18 Range/Units 11:28 17:28 20:47 WBC (3.8-10.6) k/uL MCHC (31.0-37.0) g/dL Neutrophils # (1.3-7.7) k/uL Monocytes # (0-1.0) k/uL Chloride (98-107) mmol/L BUN (9-20) mg/dL Creatinine (0.66-1.25) mg/dL POC Glucose (mg/dL) 164 H 158 H 175 H (75-99) mg/dL 01/16/18 01/16/18 01/16/18 Range/Units 02:16 06:06 06:06 WBC 23.0 H (3.8-10.6) k/uL MCHC 30.8 L (31.0-37.0) g/dL Neutrophils # 20.2 H (1.3-7.7) k/uL Monocytes # 1.2 H (0-1.0) k/uL Chloride 112 H (98-107) mmol/L BUN 63 H (9-20) mg/dL Creatinine 1.90 H (0.66-1.25) mg/dL POC Glucose (mg/dL) 128 H (75-99) mg/dL Assessment and Plan (1) Status post insertion of percutaneous endoscopic gastrostomy (PEG) tube Current Visit: Yes Status: Acute Code(s): Z93.1 - GASTROSTOMY STATUS SNOMED Code(s): 101320384 (2) Dysphagia Current Visit: Yes Status: Acute Code(s): R13.10 - DYSPHAGIA, UNSPECIFIED SNOMED Code(s): 58651070 (3) HCAP (healthcare-associated pneumonia) Current Visit: Yes Status: Acute Code(s): J18.9 - PNEUMONIA, UNSPECIFIED ORGANISM SNOMED Code(s): 506119941 (4) Leukocytosis Current Visit: Yes Status: Acute Code(s): D72.829 - ELEVATED WHITE BLOOD CELL COUNT, UNSPECIFIED SNOMED Code(s): 046451837 Plan: 1. Increased leukocytosis without fever or abdominal complaints. CBC in a.m. Multiple consultants following. Dietitian consultation appreciated. Continue to use PEG tube for tube feeds and medications. Assessment and plan of care discussed with Dr. Sanches
[2018-01-16 11:54] LABS: Glucose,Whole Blood 121 mg/dL (75-99)
[2018-01-16 12:01] VITALS: BP 137/75; TEMP 97.8
--- NOTE | 2018-01-16 14:24 | P.DS ---
Providers Date of admission: 01/11/18 21:02 Expected date of discharge: 01/16/18 Attending physician: Fuad Yen Consults: 01/11/18 21:02 Consult Physician Stat Consulting Provider: Sonia Nelson Consult Reason/Comments: Pneumonia, HCAP, failed OP, weakness, elevated trop Do you want consulting provider notified?: Yes, Notify in am Consult Physician Stat Consulting Provider: Jeanine Gomez Consult Reason/Comments: elevated troponin Do you want consulting provider notified?: Yes, Notify in am 01/11/18 21:30 Consult Physician Routine Consulting Provider: Amanda Villa Consult Reason/Comments: tia Do you want consulting provider notified?: Yes 01/12/18 13:27 Consult Physician Routine Consulting Provider: Jorge Cook Consult Reason/Comments: carotid stenosis Do you want consulting provider notified?: Yes 01/13/18 10:25 Consult Physician Routine Consulting Provider: Crys Jaramillo Consult Reason/Comments: Presbyesophagus, Pt unable to swallow Do you want consulting provider notified?: Yes Primary care physician: [facility] Hospital Course: Final diagnoses: -Right-sided weakness, possible acute TIA -Possible left lower lobe pneumonia, possibly atelectasis -Leukocytosis, possibly related to the above or reactive-steroids -Acute on chronic renal failure, possibly ATN, baseline 1.6-2 -Dysphagia, failed swallow evaluation, Barium esophagram from last hospitalization reported significant presbyesophagus and pooling of liquid above the GE junction. High risk for aspiration . Possible recurrent CA. Status post PEG tube placement -Recent non-STEMI, mild troponin leak -COPD- -Diabetes mellitus type 2 -Hypertension -Hyperlipidemia -Degenerative joint disease -melanoma of the skin resected followed by systemic chemotherapy - carotid artery stenosis on the left in the order of 50-69 percent, F/U with Vascular surgery OP -Left parotid mass , indeterminate; follow up with endocrinology OP -Lice, S/P Nix shampoo, head shaved. Hospital course:This is an 82-year-old gentleman admitted with right-sided weakness, possible TIA, possible left lower lobe pneumonia, LICE, carotid stenosis and multiple other medical issues. Evaluated by cardiology, pulmonary, neurology. Maintained on cefepime.Neuro workup completed. Evaluated by vascular surgery, regarding carotid stenosis, recommendations of follow-up CT angiogram OP. Maintained on broad-spectrum IV antibiotics. Difficulty swallowing, evaluated by speech therapy, NPO status recommended.Barium esophagram from last hospitalization reported significant presbyesophagus and pooling of liquid above the GE junction. Status post PEG tube placement.MRI reported chronic small vessel ischemia, indeterminate left parotid mass.Cleared by all Consults for discharge. Patient is being discharged to [facility] in a stable condition with guarded prognosis. - Exam GENERAL: Alert and oriented 2, no acute distress, hard of hearing CARDIOVASCULAR: S1, S2 muffled. Regular, No murmur RESPIRATION: Breath sounds diminished in the bases. No rhonchi or crackles. ABDOMEN: Soft, nontender . No guarding. no masses palpable. Bowel sounds heard. PEG tube present. PSYCHIATRY: Alert and oriented -2, mood and affect normal. NERVOUS SYSTEM: No focal deficits. The impression and plan of care has been dictated as directed. : I performed a history and examination of this patient, discussed the same with the dictator. I agree with the dictator's note ,documented as a scribe. Any additional findings or plans will be noted. Time taken: 35 minutes Patient Condition at Discharge: Stable Plan - Discharge Summary Discharge Rx Participant: Yes New Discharge Prescriptions: New Cefdinir [Omnicef] 300 mg PO BID #10 cap INSULIN LISPRO (HumaLOG) [humaLOG] 0 unit SQ ACHS #1 vial Permethrin 1% Creme Rinse [Nix Creme Rinse] 59 ml TOPICAL ONCE PRN liquid PRN Reason: Head lice predniSONE 10 mg PO DAILY tab predniSONE 30 mg PO DAILY tab predniSONE 20 mg PO DAILY tab Escitalopram Oxalate [Lexapro] 10 mg PO HS #1 tab Continue Fluocinonide 0.05% [Lidex 0.05% cream] 1 applic TOPICAL BID Ketoconazole 2% Cream [Nizoral 2%] 1 applic TOPICAL BID Ammonium Lactate Cream [Lac-Hydrin 12% Cream] 1 applic TOPICAL DAILY PRN PRN Reason: Dry Skin Multivitamins, Thera [Multivitamin (formulary)] 1 tab PO DAILY glipiZIDE [Glucotrol] 10 mg PO BID Pioglitazone [Actos] 45 mg PO DAILY Acetaminophen [Tylenol] 500 mg PO TID PRN PRN Reason: Pain Or Fever > 100.5 Atorvastatin Calcium [Lipitor] 80 mg PO HS Furosemide [Lasix] 40 mg PO DAILY Carvedilol [Coreg] 6.25 mg PO BID-W/MEALS Insulin Glargine,Hum.rec.anlog [Basaglar Kwikpen U-100] 35 unit SQ HS Ipratropium-Albuterol Nebulize [Duoneb 0.5 mg-3 mg/3 ml Soln] 3 ml INHALATION RT-QID #120 ampul.neb Pantoprazole Sodium [Protonix] 40 mg PO DAILY #30 tablet. Aspirin EC [Ecotrin Low Dose] 81 mg PO DAILY #1 tab Budesonide/Formoterol Fumarate [Symbicort 160-4.5 Mcg Inhaler] 2 puff INHALATION RT-BID Discontinued Amoxicillin/Potassium Clav [Augmentin 875-125 Tablet] 1 tab PO Q12HR #10 tab predniSONE See Taper PO DAILY Discharge Medication List Acetaminophen [Tylenol] 500 mg PO TID PRN 01/02/18 [History] Ammonium Lactate Cream [Lac-Hydrin 12% Cream] 1 applic TOPICAL DAILY PRN [History] Atorvastatin Calcium [Lipitor] 80 mg PO HS 01/02/18 [History] Carvedilol [Coreg] 6.25 mg PO BID-W/MEALS 01/02/18 [History] Fluocinonide 0.05% [Lidex 0.05% cream] 1 applic TOPICAL BID 01/02/18 [History] Furosemide [Lasix] 40 mg PO DAILY 01/02/18 [History] Insulin Glargine,Hum.rec.anlog [Basaglar Kwikpen U-100] 35 unit SQ HS 01/02/18 [ History] Ketoconazole 2% Cream [Nizoral 2%] 1 applic TOPICAL BID 01/02/18 [History] Multivitamins, Thera [Multivitamin (formulary)] 1 tab PO DAILY 01/02/18 [History ] Pioglitazone [Actos] 45 mg PO DAILY 01/02/18 [History] glipiZIDE [Glucotrol] 10 mg PO BID 01/02/18 [History] Aspirin EC [Ecotrin Low Dose] 81 mg PO DAILY #1 tab 01/07/18 [Rx] Ipratropium-Albuterol Nebulize [Duoneb 0.5 mg-3 mg/3 ml Soln] 3 ml INHALATION RT -QID #120 ampul.neb 01/07/18 [Rx] Pantoprazole Sodium [Protonix] 40 mg PO DAILY #30 tablet. 01/07/18 [Rx] Budesonide/Formoterol Fumarate [Symbicort 160-4.5 Mcg Inhaler] 2 puff INHALATION RT-BID 01/12/18 [History] Cefdinir [Omnicef] 300 mg PO BID #10 cap 01/16/18 [Rx] Escitalopram Oxalate [Lexapro] 10 mg PO HS #1 tab 01/16/18 [Rx] INSULIN LISPRO (HumaLOG) [humaLOG] 0 unit SQ ACHS #1 vial 01/16/18 [Rx] Permethrin 1% Creme Rinse [Nix Creme Rinse] 59 ml TOPICAL ONCE PRN liquid 01/16 [Rx] predniSONE 10 mg PO DAILY tab 01/16/18 [Rx] predniSONE 20 mg PO DAILY tab 01/16/18 [Rx] predniSONE 30 mg PO DAILY tab 01/16/18 [Rx] Follow up Appointment(s)/Referral(s): Prasad Berg MD [REFERRING] - 3 Days Amanda Villa MD [STAFF PHYSICIAN] - 2 Weeks Jorge Cook MD [STAFF PHYSICIAN] - 3 Weeks Sonia Nelson MD [STAFF PHYSICIAN] - 2 Weeks Nino Sanches MD [STAFF PHYSICIAN] - As Needed [facility] [Primary Care Provider] - 1 Week (After discharge from subacute rehab) Toni Pink MD [REFERRING] - 10 Days Activity/Diet/Wound Care/Special Instructions: [facility] Diet: Strict NPO, head of bed up 45 , strict aspiration precautions PEG tube feedings: Glucerna 1.2 continuous, currently at 40 ML/HR, goal is 70ml/ hr 90ml free water bolus Q4H CBC, BMP in 3 days Discharge Disposition: TRANSFER TO SNF/ECF
[2018-01-16 16:34] VITALS: PULSE 79
[2018-01-18] MEDS ORDERED: predniSONE 10 MG TAB PO SCH (09:00)
[2018-01-18] MEDS ORDERED: predniSONE 20 MG TAB PO SCH (09:00)
[2018-01-21] MEDS ORDERED: predniSONE 10 MG TAB PO SCH (09:00)
== END 2018-01-16 16:56 | DRG 69 ==
LOC: EC 16:23 → 6SEL 21:02
PROVIDERS: ADMIT Hospitalist; ATTEND Hospitalist
PROC: 0DH63UZ Insertion of Feeding Device into Stomach, Percutaneous Approach (ICD-10-PCS; principal; 2018-01-14 09:10)
PROC: 3E0G76Z Introduction of Nutritional Substance into Upper GI, Via Natural or Artificial Opening (ICD-10-PCS; 2018-01-15)
DX: G45.9 Transient cerebral ischemic attack, unspecified (principal); J18.9 Pneumonia, unspecified organism; N17.0 Acute kidney failure with tubular necrosis; J44.1 Chronic obstructive pulmonary disease with (acute) exacerbation; C77.3 Secondary and unspecified malignant neoplasm of axilla and upper limb lymph nodes; J98.11 Atelectasis; I48.2 Chronic atrial fibrillation; E11.22 Type 2 diabetes mellitus with diabetic chronic kidney disease; C43.9 Malignant melanoma of skin, unspecified; N18.3 Chronic kidney disease, stage 3 (moderate); R13.12 Dysphagia, oropharyngeal phase; L80 Vitiligo; I12.9 Hypertensive chronic kidney disease with stage 1 through stage 4 chronic kidney disease, or unspecified chronic kidney disease; H26.9 Unspecified cataract; I65.22 Occlusion and stenosis of left carotid artery; Y95 Nosocomial condition; K29.70 Gastritis, unspecified, without bleeding; K22.8 Other specified diseases of esophagus; B85.0 Pediculosis due to Pediculus humanus capitis; E78.5 Hyperlipidemia, unspecified; M19.91 Primary osteoarthritis, unspecified site; K11.8 Other diseases of salivary glands; I25.2 Old myocardial infarction; H91.90 Unspecified hearing loss, unspecified ear; Z79.82 Long term (current) use of aspirin; Z79.51 Long term (current) use of inhaled steroids; Z79.4 Long term (current) use of insulin; Z79.899 Other long term (current) drug therapy; Z90.49 Acquired absence of other specified parts of digestive tract; Z92.21 Personal history of antineoplastic chemotherapy; Z87.891 Personal history of nicotine dependence; Z87.01 Personal history of pneumonia (recurrent); Z87.19 Personal history of other diseases of the digestive system; Z82.0 Family history of epilepsy and other diseases of the nervous system; Z80.8 Family history of malignant neoplasm of other organs or systems
CPT/HCPCS: 36415; 43246; 70450; 70553; 71046; 80048; 80053; 81001; 82550; 82553; 82803; 83519; 83605; 83735; 83880; 84484; 85025; 85610; 93880; 94640; 94760; 95816; 96365; 96366; 96367; 99285

== ENCOUNTER 2018-02-02 23:24 | Inpatient (IN) | payer OTHER, MEDICARE ==
[2018-02-02] MEDS ORDERED: IPRATROPIUM 0.5 MG/2.5 ML NEBU INHALATION STA (23:27)
[2018-02-02] MEDS ORDERED: ALBUTEROL NEBULIZED 2.5 MG/3 ML INHALATION STA (23:27)
--- NOTE | 2018-02-02 23:29 | ED ---
SOB HPI - General Stated Complaint: JUANCHO Time Seen by Provider: 02/02/18 23:27 Source: RN notes reviewed, old records reviewed Limitations: altered mental status, physical limitation - History of Present Illness Initial Comments: This is an 80-year-old male the ER for evaluation per patient poor historian unable to give history secondary severe shortness of breath with hypoxia. Patient has history of lung cancer and COPD. Patient coming in for lower oxygen with recent diagnosis of pneumonia MD Complaint: shortness of breath -: hour(s) (recently), days(s) Severity: severe Severity scale (1-10): 10 Worsens With: nothing Known History Of: COPD, recurrent pneumonia, other (CA) - Related Data Home Medications Medication Instructions Recorded Confirmed Acetaminophen [Tylenol] 500 mg PO TID PRN 01/02/18 01/12/18 Ammonium Lactate Cream [Lac-Hydrin 1 applic TOPICAL DAILY PRN 01/02/18 01/12/18 12% Cream] Atorvastatin Calcium [Lipitor] 80 mg PO HS 01/02/18 01/12/18 Carvedilol [Coreg] 6.25 mg PO BID-W/MEALS 01/02/18 01/12/18 Fluocinonide 0.05% [Lidex 0.05% 1 applic TOPICAL BID 01/02/18 01/12/18 cream] Furosemide [Lasix] 40 mg PO DAILY 01/02/18 01/12/18 Insulin Glargine,Hum.rec.anlog 35 unit SQ HS 01/02/18 01/12/18 [Basaglar Kwikpen U-100] Ketoconazole 2% Cream [Nizoral 2%] 1 applic TOPICAL BID 01/02/18 01/12/18 Multivitamins, Thera [Multivitamin 1 tab PO DAILY 01/02/18 01/12/18 (formulary)] Pioglitazone [Actos] 45 mg PO DAILY 01/02/18 01/12/18 glipiZIDE [Glucotrol] 10 mg PO BID 01/02/18 01/12/18 Budesonide/Formoterol Fumarate 2 puff INHALATION RT-BID 01/12/18 01/12/18 [Symbicort 160-4.5 Mcg Inhaler] Previous Rx's Medication Instructions Recorded Aspirin EC [Ecotrin Low Dose] 81 mg PO DAILY #1 tab 01/07/18 Ipratropium-Albuterol Nebulize 3 ml INHALATION RT-QID #120 01/07/18 [Duoneb 0.5 mg-3 mg/3 ml Soln] ampul.frank Pantoprazole Sodium [Protonix] 40 mg PO DAILY #30 tablet. 01/07/18 Cefdinir [Omnicef] 300 mg PO BID #10 cap 01/16/18 Escitalopram Oxalate [Lexapro] 10 mg PO HS #1 tab 01/16/18 INSULIN LISPRO (HumaLOG) [humaLOG] 0 unit SQ ACHS #1 vial 01/16/18 Permethrin 1% Creme Rinse [Nix 59 ml TOPICAL ONCE PRN liquid 01/16/18 Creme Rinse] predniSONE 10 mg PO DAILY tab 01/16/18 predniSONE 20 mg PO DAILY tab 01/16/18 predniSONE 30 mg PO DAILY tab 01/16/18 Allergies Allergy/AdvReac Type Severity Reaction Status Date / Time No Known Allergies Allergy Verified 02/02/18 23:33 Review of Systems ROS Statement: Those systems with pertinent positive or pertinent negative responses have been documented in the HPI. ROS Other: All systems not noted in ROS Statement are negative. Past Medical History Past Medical History: Atrial Fibrillation, Cancer, COPD, Diabetes Mellitus, Hearing Disorder / Deafness, Hyperlipidemia, Hypertension, Memory Impairment, Osteoarthritis (OA), Skin Disorder Additional Past Medical History / Comment(s): melanoma- has had 2 chemo treatments at [facility] stated next one due 01-07-18. 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 Past Anesthesia/Blood Transfusion Reactions: No Reported Reaction Past Psychological History: No Psychological Hx Reported Smoking Status: Former smoker Past Alcohol Use History: None Reported Additional Past Alcohol Use History / Comment(s): started smoking at age 19 ( 1953)and quit 1968 smoked less than 1 ppd. Past Drug Use History: None Reported - Past Family History Mother Family Medical History: Neurologic Disorder Additional Family Medical History / Comment(s): parkinsons Father Family Medical History: Cancer Additional Family Medical History / Comment(s): spinal cancer General Exam Limitations: altered mental status General appearance: alert, anxious, in distress Head exam: Present: atraumatic, normocephalic, normal inspection Eye exam: Present: normal appearance, PERRL, EOMI. Absent: scleral icterus, conjunctival injection, periorbital swelling ENT exam: Present: normal exam, mucous membranes moist Neck exam: Present: normal inspection. Absent: tenderness, meningismus, lymphadenopathy Respiratory exam: Present: normal lung sounds bilaterally, wheezes, accessory muscle use, decreased breath sounds, prolonged expiratory. Absent: respiratory distress, rales, rhonchi, stridor Cardiovascular Exam: Present: regular rate, normal rhythm, normal heart sounds. Absent: systolic murmur, diastolic murmur, rubs, gallop, clicks GI/Abdominal exam: Present: soft, normal bowel sounds. Absent: distended, tenderness, guarding, rebound, rigid Extremities exam: Present: normal inspection, full ROM, normal capillary refill. Absent: tenderness, pedal edema, joint swelling, calf tenderness Back exam: Present: normal inspection Neurological exam: Present: alert, oriented X3, CN II-XII intact Psychiatric exam: Present: normal affect, normal mood Skin exam: Present: warm, dry, intact, normal color. Absent: rash Course Vital Signs 02/02/18 02/02/18 23:25 23:38 Temperature 98 F Pulse Rate 84 85 Respiratory 38 H Rate Blood Pressure 137/75 O2 Sat by Pulse 94 L Oximetry - Reevaluation(s) Reevaluation #1: 02/02/18 23:49 Medical records thoroughly reviewed Patient placed on BiPAP secondary severe distress Medical Decision Making - Medical Decision Making 80 male the ER for evasive significant shortness of breath and hypoxia altered mental state. Patient placed on BiPAP upon arrival to emergency room secondary severe disease state and hypoxia, patient does improve here in emergency room, will admit for continued IV antibiotics and treatment - Lab Data Lab Results 02/02/18 Range/Units 23:33 POC Glucose (mg/dL) 136 H (75-99) mg/dL POC Glu Flight Physician ID Gagan Hines - EKG Data -: EKG Interpreted by Me (EKG shows normal sinus rhythm rate of 77, DE 174, QRS 80, QTC 400) EKG shows normal: sinus rhythm Rate: normal - Radiology Data Radiology results: report reviewed (Chest x-ray is positive pneumonia), image reviewed Critical Care Time Critical Care Time: Yes Total Critical Care Time: 31 Disposition Clinical Impression: COPD (chronic obstructive pulmonary disease), HCAP (healthcare-associated pneumonia), Leukocytosis, Hypercapnia, Weakness, Acute exacerbation of chronic obstructive airways disease, Lung cancer, Hypoxia Disposition: ADMITTED IP TO THIS [facility] Condition: Serious Is patient prescribed a controlled substance at d/c from ED?: No Referrals: Prasad Berg MD [Primary Care Provider] - 1-2 days
[2018-02-02 23:35] LABS: Glucose,Whole Blood 136 mg/dL (75-99)
[2018-02-02] MEDS ORDERED: PIPERACILLIN-TAZOBACTAM 3.375 GM in DEXTROSE/WATER 1 50ML.BAG IVPB STA (23:50)
[2018-02-02] MEDS ORDERED: LEVOFLOXACIN 750MG-D5W PMX 750 MG in DEXTROSE/WATER 1 150ML.BAG IVPB STA (23:50)
[2018-02-02] MEDS ORDERED: PNEUMONIA PROTOCOL UTILIZED 1 EACH MISC PO PRN (23:50)
[2018-02-02 23:56] LABS: VBG PH 7.37 (7.31-7.41)
[2018-02-02 23:58] LABS: Basophils % (A) 0 %; Eosinophils # (A) 0.1 k/uL (0-0.7); Eosinophils % (A) 1 %; HCT 36.7 % (39.0-53.0); HGB 11.5 gm/dL (13.0-17.5); Lymphocytes # (A) 0.5 k/uL (1.0-4.8); Lymphocytes % (A) 3 %; MCH 29.3 pg (25.0-35.0); MCHC 31.3 g/dL (31.0-37.0); MCV 93.7 fL (80.0-100.0); Monocytes # (A) 1.1 k/uL (0-1.0); Monocytes % (A) 6 %; Neutrophils # (A) 14.9 k/uL (1.3-7.7); Neutrophils % (A) 88 %; Platelet Count 311 k/uL (150-450); RBC 3.92 m/uL (4.30-5.90); RDW 14.2 % (11.5-15.5); WBC 16.9 k/uL (3.8-10.6)
--- NOTE | 2018-02-02 23:58 | XR ---
EXAMINATION TYPE: XR chest 1V portable DATE OF EXAM: 02/02/2018 COMPARISON: 01/11/2018 HISTORY: Short of breath TECHNIQUE: Single frontal view of the chest is obtained. FINDINGS: Portable upright view shows right central venous catheter with tip in the superior vena ca va. There is infiltrate and atelectasis at the lung bases. There is mild pulmonary congestion. There is probably pleural effusions. IMPRESSION: Pulmonary vascularity is increased slightly compared to last exam. There is possible mil d heart failure. Pleural fluid and basilar pulmonary mild infiltrates and atelectasis appears the li e or slightly worse.
[2018-02-03] MEDS ORDERED: ACETAMINOPHEN IV (For NPO) 1,000 MG in EMPTY BAG 1 BAG IVPB STA
[2018-02-03] MEDS: SODIUM CHLORIDE 0.9% 1,000 ML IV SCH ×2 (00:02→09:42)
[2018-02-03 00:11] LABS: Albumin 2.8 g/dL (3.5-5.0); Calcium 8.2 mg/dL (8.4-10.2); INR 0.9 (<1.2); Magnesium 2.9 mg/dL (1.6-2.3); Partial Thromboplastin Time 24.5 sec (22.0-30.0); Potassium 5.8 mmol/L (3.5-5.1); Prothrombin Time 9.4 sec (9.0-12.0); Total Bilirubin 0.7 mg/dL (0.2-1.3); Total Protein 5.5 g/dL (6.3-8.2)
[2018-02-03] MEDS ORDERED: SODIUM CHLORIDE 0.9% 2,000 ML IV STA (00:27)
[2018-02-03 00:28] LABS: Creatine Kinase MB 39.6 ng/mL (0.0-2.4)
[2018-02-03 00:33] LABS: Troponin I 0.041 ng/mL (0.000-0.034)
[2018-02-03 03:02] VITALS: BMI 28.4
[2018-02-03] MEDS: PIPERACILLIN-TAZOBACTAM 3.375 GM in DEXTROSE/WATER 1 50ML.BAG IVPB SCH ×2 (03:20→10:57)
[2018-02-03] MEDS ORDERED: SODIUM BICARB 8.4% 50 ML SYR (1 MEQ/ML) IV ONE (04:04)
[2018-02-03] MEDS ORDERED: CALCIUM GLUCONATE 1,000 MG in SODIUM CHLORIDE 0.9% 100 ML IVPB ONE (04:04)
[2018-02-03] MEDS ORDERED: INSULIN REGULAR 100 UNIT/ML VIAL IV ONE (04:04)
[2018-02-03] MEDS ORDERED: DEXTROSE 50%-WATER 50 ML SYRINGE IVP STA (04:05)
[2018-02-03] MEDS ORDERED: IPRATROPIUM-ALBUTEROL 3 ML NEB INHALATION PRN (04:08)
[2018-02-03 05:03] LABS: ABG Base Excess 8.1 mmol/L; ABG HCO3 35 mmol/L (21-25); ABG Oxygen Saturation 97.1 % (94-97); ABG PH 7.28 (7.35-7.45); ABG PO2 86 mmHg (83-108); ABG TCO2 37 mmol/L (19-24)
[2018-02-03 05:04] LABS: ABG PCO2 74 mmHg (35-45)
[2018-02-03 05:20] LABS: Appearance,Urine Cloudy (Clear); Bilirubin,Urine Negative (Negative); Blood,Urine Moderate (Negative); Budding Yeast,Urine Many /hpf; Color,Urine Yellow; Glucose,Urine (UA) Negative (Negative); Hyphae Yeast, Urine Rare /hpf; Ketones,Urine Negative (Negative); Leukocyte Esterase,Urine Moderate (Negative); Mucus,Urine Rare /hpf; Nitrite,Urine Negative (Negative); Protein,Urine 1+ (Negative); RBC,Urine 40 /hpf (0-5); Specific Gravity,Urine 1.014 (1.001-1.035); Squamous Epithelial Cell,Urine 1 /hpf (0-4); Urobilinogen,Urine <2.0 mg/dL (<2.0); WBC,Urine 13 /hpf (0-5)
[2018-02-03 05:42] LABS: Basophils % (A) 0 %; Eosinophils # (A) 0.1 k/uL (0-0.7); Eosinophils % (A) 1 %; HCT 32.1 % (39.0-53.0); HGB 10.1 gm/dL (13.0-17.5); Lymphocytes # (A) 0.6 k/uL (1.0-4.8); Lymphocytes % (A) 4 %; MCH 29.8 pg (25.0-35.0); MCHC 31.6 g/dL (31.0-37.0); MCV 94.4 fL (80.0-100.0); Monocytes % (A) 7 %; Neutrophils # (A) 12.3 k/uL (1.3-7.7); Neutrophils % (A) 87 %; Platelet Count 277 k/uL (150-450); RDW 14.2 % (11.5-15.5); WBC 14.3 k/uL (3.8-10.6)
[2018-02-03 05:44] LABS: Calcium 7.5 mg/dL (8.4-10.2); Magnesium 2.6 mg/dL (1.6-2.3); Potassium 5.2 mmol/L (3.5-5.1)
[2018-02-03] MEDS ORDERED: PANTOPRAZOLE 40 MG/10 ML VIAL IVP SCH (07:30)
[2018-02-03 07:31] LABS: Glucose,Whole Blood 59 mg/dL (75-99)
[2018-02-03] MEDS: IPRATROPIUM-ALBUTEROL 3 ML NEB INHALATION SCH ×3 (07:54→16:19)
[2018-02-03] MEDS: DEXTROSE 50%-WATER 50 ML SYRINGE IVP STA ×2 (08:11→11:33)
[2018-02-03] MEDS: INSULIN ASPART 100 UNIT/ML 1 ML 10 ML VIAL SQ SCH ×2 (08:37→12:07)
[2018-02-03 08:47] LABS: Glucose,Whole Blood 93 mg/dL (75-99)
[2018-02-03] MEDS ORDERED: FLUCONAZOLE IN NACL,ISO-OSM 100 MG in SALINE 1 50ML.BAG IVPB SCH (09:00)
[2018-02-03] MEDS ORDERED: ENOXAPARIN 30 MG/0.3 ML SYRINGE SQ SCH (09:00)
--- NOTE | 2018-02-03 09:07 | P.CNPUL ---
History of Present Illness Consult date: 02/03/18 Reason for consult: dyspnea Chief complaint: altered mental status and shortness of breath History of present illness: This is a 82-year-old male patient, correction resident, multiple medical problems and comorbidities, extremely poor performance and functional status and a DO NOT RESUSCITATE CODE STATUS, comes in yesterday to the hospital because of diminished level of consciousness and worsening shortness of breath. Apparently the patient was hypoxic at the correction yet he was hemodynamically stable. No fever was documented. There is been always a concern of aspiration yet that is no reported aspiration during this current admission by the correction staff. The patient has been admitted in the past for bilateral pneumonia and he was treated with antibiotics. In fact during his most recent hospitalization on 01/12/2018, the patient was given a combination of cefepime and vancomycin and he was discharged back to the correction on Augmentin. Nevertheless no cultures have been obtained. The patient has many medical issues. 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 During this current admission, UA was abnormal with budding yeast, chest x-ray shows stable atelectatic change in the lung bases bilaterally and fluid within the right fissure. No evidence of any new airspace disease. The patient is a port over the right chest area. Sodium was low at the time of admission 128 is up to 1:30. White cell count is down to 14.3. Currently the patient on BiPAP at a pressure of 14/5 with an FiO2 of 50%. Blood Showed a pH of 7.28 with a pCO2 of 74 and pO2 of 86 this was prior to him being on the current BiPAP setting. Review of Systems Altered mentation and a full review of systems cannot be obtained Past Medical History Past Medical History: Atrial Fibrillation, Cancer, COPD, Diabetes Mellitus, Hearing Disorder / Deafness, Hyperlipidemia, Hypertension, Memory Impairment, Osteoarthritis (OA), Skin Disorder Additional Past Medical History / Comment(s): Paroxysmal atrial fibrillation, COPD, diabetes mellitus, impaired hearing, chronic renal failure, hypertension, hyperlipidemia, memory deficits, vitiligo, cataracts, left carotid artery stenosis in the order of 50-65%, [employer] atrophy based on the previous MRI of the brain, difficulty with swallowing, stage I sacral decubitus ulceration , melanoma- has had 2 chemo treatments at [facility] in [place] stated next one due 01-07-18. 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 Past Anesthesia/Blood Transfusion Reactions: No Reported Reaction Past Psychological History: Anxiety, Depression Smoking Status: Former smoker Past Alcohol Use History: None Reported Additional Past Alcohol Use History / Comment(s): started smoking at age 19 ( 1954)and quit 1967 smoked less than 1 ppd. Past Drug Use History: None Reported - Past Family History Mother Family Medical History: Neurologic Disorder Additional Family Medical History / Comment(s): parkinsons Father Family Medical History: Cancer Additional Family Medical History / Comment(s): spinal cancer Medications and Allergies Home Medications Medication Instructions Recorded Confirmed Type Acetaminophen [Tylenol] 500 mg PO TID PRN 01/02/18 01/12/18 History Ammonium Lactate Cream [Lac-Hydrin 1 applic TOPICAL DAILY PRN 01/02/18 01/12/18 History 12% Cream] Atorvastatin Calcium [Lipitor] 80 mg PO HS 01/02/18 01/12/18 History Carvedilol [Coreg] 6.25 mg PO BID-W/MEALS 01/02/18 01/12/18 History Fluocinonide 0.05% [Lidex 0.05% 1 applic TOPICAL BID 01/02/18 01/12/18 History cream] Furosemide [Lasix] 40 mg PO DAILY 01/02/18 01/12/18 History Insulin Glargine,Hum.rec.anlog 35 unit SQ HS 01/02/18 01/12/18 History [Doron Quick U-100] Ketoconazole 2% Cream [Nizoral 2%] 1 applic TOPICAL BID 01/02/18 01/12/18 History Multivitamins, Thera [Multivitamin 1 tab PO DAILY 01/02/18 01/12/18 History (formulary)] Pioglitazone [Actos] 45 mg PO DAILY 01/02/18 01/12/18 History glipiZIDE [Glucotrol] 10 mg PO BID 01/02/18 01/12/18 History Aspirin EC [Ecotrin Low Dose] 81 mg PO DAILY #1 tab 01/07/18 01/12/18 Rx Ipratropium-Albuterol Nebulize 3 ml INHALATION RT-QID #120 01/07/18 01/12/18 Rx [Duoneb 0.5 mg-3 mg/3 ml Soln] ampul.neb Pantoprazole Sodium [Protonix] 40 mg PO DAILY #30 tablet. 01/07/18 01/12/18 Rx Budesonide/Formoterol Fumarate 2 puff INHALATION RT-BID 01/12/18 01/12/18 History [Symbicort 160-4.5 Mcg Inhaler] Cefdinir [Omnicef] 300 mg PO BID #10 cap 01/16/18 Rx Escitalopram Oxalate [Lexapro] 10 mg PO HS #1 tab 01/16/18 Rx INSULIN LISPRO (HumaLOG) [humaLOG] 0 unit SQ ACHS #1 vial 01/16/18 Rx Permethrin 1% Creme Rinse [Nix 59 ml TOPICAL ONCE PRN liquid 01/16/18 Rx Creme Rinse] predniSONE 10 mg PO DAILY tab 01/16/18 Rx predniSONE 20 mg PO DAILY tab 01/16/18 Rx predniSONE 30 mg PO DAILY tab 01/16/18 Rx Allergies Allergy/AdvReac Type Severity Reaction Status Date / Time No Known Allergies Allergy Verified 02/02/18 23:33 Physical Exam Vitals: Vital Signs Temp Pulse Pulse Resp BP BP Pulse Ox 02/03/18 08:09 70 02/03/18 08:00 97.7 F 72 16 124/64 98 02/03/18 07:00 65 16 103/51 96 02/03/18 06:15 99.1 F 70 16 117/78 94 L 02/03/18 04:30 97.4 F L 68 18 77/44 97 02/03/18 04:20 105/54 02/03/18 03:45 18 89/48 02/03/18 01:26 71 16 101/58 95 02/03/18 01:23 18 97 02/03/18 00:43 98.3 F 87 16 106/59 98 02/03/18 00:11 73 16 95/50 97 02/03/18 00:10 70 02/02/18 23:47 84 24 120/57 95 02/02/18 23:38 85 02/02/18 23:25 98 F 84 38 H 137/75 94 L Intake and Output 02/02/18 02/03/18 02/03/18 22:59 06:59 14:59 Intake Total 200 Output Total 270 Balance -70 Intake: IV 200 Sodium Chloride 0.9% 1, 200 000 ml @ 100 mls/hr IV . Q10H [facility] Rx#:[id number] Output: Urine 270 Other: Voiding Method Indwelling Catheter Weight 90 kg General Impression: Diminished level of consciousness and the patient is currently on a BiPAP at a pressure of 14/6 cm of water with an FiO2 of 50% HEENT: PERRLA, EOMI, no icterus, no neck masses, no JVD. No stridor. No lymphadenopathy. Cardiovascular: regular irregular rhythm, normal S1&S2 audible, no murmurs, rubs or gallops Chest: Lungs clear to auscultation bilaterally, no rhonchi, no wheeze, no rales , the patient is at port over the right anterior chest area which is accessed and the exit site is dry clean and intact. Abdomen: Bowel sounds present, abdomen soft, non-tender, non-distended, no organomegaly Musculoskeletal: Pulses present and equal in all extremities, trace of peripheral edema noted. Motor: Moves all tremors grossly, not following commands, mumbles and withdraws to painful stimulation. Pupils are equal and reactive to light. No obvious facial asymmetry. Neurological: not communicating, not following any simple commands, withdraws to painful stimulation, no focal neurological deficit. Cough and gag cannot be assessed. Currently is on a BiPAP with a full facemask. Skin: Intact with no visualized rashes, there is a stage I sacral decubitus ulceration measuring about 1 cm in size Psych: unable to perform at this point in time Results - Laboratory Findings CBC and BMP: 02/03/18 05:14 02/03/18 05:14 ABG ABG pH 7.28 (7.35-7.45) L 02/03/18 05:01 ABG pCO2 74 mmHg (35-45) H* 02/03/18 05:01 ABG pO2 86 mmHg (83-108) 02/03/18 05:01 ABG O2 Saturation 97.1 % (94-97) H 02/03/18 05:01 PT/INR, D-dimer PT 9.4 sec (9.0-12.0) 02/02/18 23:16 INR 0.9 (<1.2) 02/02/18 23:16 Abnormal lab findings: Abnormal Labs 02/02/18 02/02/18 02/02/18 23:16 23:16 23:16 WBC 16.9 H RBC 3.92 L Hgb 11.5 L Hct 36.7 L Neutrophils # 14.9 H Lymphocytes # 0.5 L Monocytes # 1.1 H ABG pH ABG pCO2 ABG HCO3 ABG Total CO2 ABG O2 Saturation VBG pCO2 VBG HCO3 Sodium 128 L Potassium 5.8 H Chloride 83 L Carbon Dioxide 39 H BUN 107 H* Creatinine 2.06 H Glucose 126 H POC Glucose (mg/dL) Plasma Lactic Acid Beny Calcium 8.2 L Magnesium 2.9 H Total Creatine Kinase 185 H CK-MB (CK-2) 39.6 H Troponin I 0.041 H* Total Protein 5.5 L Albumin 2.8 L Urine Protein Urine Blood Ur Leukocyte Esterase Urine RBC Urine WBC Urine WBC Clumps Urine Mucus Urine Yeast (Budding) 02/02/18 02/02/18 02/03/18 23:16 23:33 05:01 WBC RBC Hgb Hct Neutrophils # Lymphocytes # Monocytes # ABG pH 7.28 L ABG pCO2 74 H* ABG HCO3 35 H ABG Total CO2 37 H ABG O2 Saturation 97.1 H VBG pCO2 65 H VBG HCO3 36 H Sodium Potassium Chloride Carbon Dioxide BUN Creatinine Glucose POC Glucose (mg/dL) 136 H Plasma Lactic Acid Beny Calcium Magnesium Total Creatine Kinase CK-MB (CK-2) Troponin I Total Protein Albumin Urine Protein Urine Blood Ur Leukocyte Esterase Urine RBC Urine WBC Urine WBC Clumps Urine Mucus Urine Yeast (Budding) 02/03/18 02/03/18 02/03/18 05:04 05:14 05:14 WBC 14.3 H RBC 3.40 L Hgb 10.1 L Hct 32.1 L Neutrophils # 12.3 H Lymphocytes # 0.6 L Monocytes # ABG pH ABG pCO2 ABG HCO3 ABG Total CO2 ABG O2 Saturation VBG pCO2 VBG HCO3 Sodium Potassium Chloride Carbon Dioxide BUN Creatinine Glucose POC Glucose (mg/dL) Plasma Lactic Acid Beny Calcium Magnesium Total Creatine Kinase CK-MB (CK-2) Troponin I 0.041 H* Total Protein Albumin Urine Protein 1+ H Urine Blood Moderate H Ur Leukocyte Esterase Moderate H Urine RBC 40 H Urine WBC 13 H Urine WBC Clumps Rare H Urine Mucus Rare H Urine Yeast (Budding) Many H 02/03/18 02/03/18 02/03/18 05:14 05:14 07:30 WBC RBC Hgb Hct Neutrophils # Lymphocytes # Monocytes # ABG pH ABG pCO2 ABG HCO3 ABG Total CO2 ABG O2 Saturation VBG pCO2 VBG HCO3 Sodium 130 L Potassium 5.2 H Chloride 90 L Carbon Dioxide 32 H BUN 101 H* Creatinine 1.97 H Glucose 47 L* POC Glucose (mg/dL) 59 L Plasma Lactic Acid Beny <0.5 L Calcium 7.5 L Magnesium 2.6 H Total Creatine Kinase CK-MB (CK-2) Troponin I Total Protein Albumin Urine Protein Urine Blood Ur Leukocyte Esterase Urine RBC Urine WBC Urine WBC Clumps Urine Mucus Urine Yeast (Budding) - Diagnostic Findings Chest x-ray: image reviewed Assessment and Plan Plan: Assessment 1 altered mental status along with worsening in pulmonary status and hypoxemia. Exact etiology is not clear. Chest x-ray findings are essentially stable. Suspect underlying urine tract infection. Suspect underlying intravascular volume depletion/dehydration. A superimposed pneumonia cannot be completely excluded 2 acute on chronic hypoxic respiratory failure, currently on BiPAP 3 chronic dysphagia workup has been negative during his last admission, the workup from the previous evaluation was negative and MRI of the brain shows no evidence of any anesthetic lesions to the brain.high-risk for pulmonary aspiration, no clear indication for any recurrent aspiration and a chest x-ray findings are essentially stable for now. 4 melanoma of the skin resected followed by systemic chemotherapy 5 neck pain 6 diabetes mellitus, episodes of hypoglycemia treated and the patient will be taken off insulin for now, the patient is also on Glucotrol was placed on hold for now. 7 chronic renal failure, stable creatinine. 8 impaired hearing with difficulty in communication 9 hypertension 10 hyperlipidemia 11 vitiligo 12 carotid artery stenosis on the left in the order of 50-69 percent 13 hyponatremia, improving and the sodium level is up to 130 14 mild leukocytosis 15 mild troponin leak 16 correction resident ZAY Continue BiPAP for respiratory support and monitor the blood gases. Continue resuscitating the patient with IV fluids at a rate of 100 mL an hour of normal saline. Monitor BNP and monitor creatinine. Monitor urine output. Replace the Blanco catheter. Send blood for cultures. Send urine for cultures. Continue Zosyn and Levaquin and Diflucan for possible fungal urinary tract infection. Monitor the sodium level. Monitored the fever pattern. Nothing by mouth for now. Stop Lantus insulin and put the patientcare coverage only. Lovenox for DVT prophylaxis. IV Protonix. Rest of the medication will be kept unchanged. Post status DNR/DNI. We'll continue to follow. Long-term prognosis poor baseline above-mentioned comorbidities. He is a correction resident.
[2018-02-03 11:33] LABS: Glucose,Whole Blood 54 mg/dL (75-99)
[2018-02-03 11:56] LABS: Glucose,Whole Blood 124 mg/dL (75-99)
[2018-02-03 12:02] VITALS: BP 113/56; RESP 15; TEMP 98.3
[2018-02-03] MEDS ORDERED: MORPHINE SULFATE 2 MG/ML SYRINGE IV PRN (12:29)
[2018-02-03] MEDS ORDERED: ATROPINE OPHTH SOLN 1% 5ML BTL SUBLINGUAL PRN (12:29)
[2018-02-03] MEDS ORDERED: MORPHINE SULFATE (100 MG/2 ML) 100 MG in SODIUM CHLORIDE 0.9% 100 ML IV SCH (12:30)
[2018-02-03] MEDS ORDERED: SCOPOLAMINE 1.5MG/72HR PATCH TRANSDERM SCH (12:30)
[2018-02-03] MEDS ORDERED: DEXTROSE 5%-0.9% NACL 1,000 ML IV SCH (12:30)
[2018-02-03 12:31] VITALS: PULSE 71
--- NOTE | 2018-02-03 14:01 | P.HPIM ---
History of Present Illness This is an 82 years old male with past medical history of atrial fibrillation, COPD, diabetes mellitus, deafness/hearing disorder, hyperlipidemia, hypertension , memory impairment/dementia, osteoarthritis, chronic kidney disease, left carotid artery stenosis in 50-65%, previous MRI showing RESERVATION CLERK atrophy. Dysphagia. Stage I sacral decubitus ulcer. Melanoma, status post chemotherapy. Now presents with dyspnea and altered mental status. Patient could not provide information as information is taken from the medical records and staff. Presents to the emergency room with dyspnea and hypoxia, and altered mental status. Patient was placed on BiPAP and on arrival to emergency room for hypoxia he was started on IV antibiotic. he got a breathing treatment. Started on Levaquin and Zosyn. With IV fluids, besides bicarb, in dextrose and insulin. Sugar on admission was 136, 59, 93, 54, and currently 124 , while his WBCs 14.3 K. Hemoglobin 10.1. Platelets 277. ABG showing pH 7.2, pCO2 74. Sodium was 130. Potassium 5.2. Creatinine 1.9, 2.06. Baseline between 1.5 and 2.2. Troponin is elevated at 0.04 and 0.04. UA suggestive of infection. Patient was admitted to the ICU. And this morning is the first time I know about and saw the patient he was already in the ICU. Pulmonary/ critical care team already evaluated the patient for altered mental status along with worsening pulmonary status and hypoxia. The exact etiology is not clear. With underlying UTI and suspected hypovolemia/dehydration with superimposed pneumonia cannot be completely excluded. Patient was already started on Levaquin and Zosyn, besides IV fluids. However family decided to make the patient comfort care as per staff. orders have been already initiated. Review of Systems N/A for AMS Past Medical History Past Medical History: Atrial Fibrillation, Cancer, COPD, Diabetes Mellitus, Hearing Disorder / Deafness, Hyperlipidemia, Hypertension, Memory Impairment, Osteoarthritis (OA), Skin Disorder Additional Past Medical History / Comment(s): Paroxysmal atrial fibrillation, COPD, diabetes mellitus, impaired hearing, chronic renal failure, hypertension, hyperlipidemia, memory deficits, vitiligo, cataracts, left carotid artery stenosis in the order of 50-65%, RESERVATION CLERK atrophy based on the previous MRI of the brain, difficulty with swallowing, stage I sacral decubitus ulceration , melanoma- has had 2 chemo treatments at [facility] in [place] stated next one due 9--18. 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 Past Anesthesia/Blood Transfusion Reactions: No Reported Reaction Past Psychological History: Anxiety, Depression Smoking Status: Former smoker Past Alcohol Use History: None Reported Additional Past Alcohol Use History / Comment(s): started smoking at age 19 ( 195)and quit 1967 smoked less than 1 ppd. Past Drug Use History: None Reported - Past Family History Mother Family Medical History: Neurologic Disorder Additional Family Medical History / Comment(s): parkinsons Father Family Medical History: Cancer Additional Family Medical History / Comment(s): spinal cancer Medications and Allergies Home Medications Medication Instructions Recorded Confirmed Type Ammonium Lactate Cream [Lac-Hydrin 1 applic TOPICAL DAILY PRN 01/02/18 02/03/18 History 12% Cream] Atorvastatin Calcium [Lipitor] 80 mg PEG/G-TUBE HS 01/02/18 02/03/18 History Carvedilol [Coreg] 6.25 mg PEG/G-TUBE BID-W/MEALS 01/02/18 02/03/18 History Fluocinonide 0.05% [Lidex 0.05% 1 applic TOPICAL BID 01/02/18 02/03/18 History cream] Furosemide [Lasix] 40 mg PEG/G-TUBE DAILY 01/02/18 02/03/18 History Insulin Glargine,Hum.rec.anlog 35 unit SQ HS 01/02/18 02/03/18 History [Basaglar Kwikpen U-100] Ketoconazole 2% Cream [Nizoral 2%] 1 applic TOPICAL BID 01/02/18 02/03/18 History Multivitamins, Thera [Multivitamin 1 tab PEG/G-TUBE HS 01/02/18 02/03/18 History (formulary)] Pioglitazone [Actos] 45 mg PEG/G-TUBE DAILY 01/02/18 02/03/18 History Budesonide/Formoterol Fumarate 2 puff INHALATION RT-BID 01/12/18 02/03/18 History [Symbicort 160-4.5 Mcg Inhaler] Aspirin EC [Ecotrin Low Dose] 81 mg PEG/G-TUBE DAILY 02/03/18 02/03/18 History Escitalopram Oxalate [Lexapro] 10 mg PEG/G-TUBE HS 02/03/18 02/03/18 History Glucerna Shake 1 dose PEG/G-TUBE DIRECTED 02/03/18 02/03/18 History INSULIN LISPRO (HumaLOG) [humaLOG] See Protocol SQ Q6H 02/03/18 02/03/18 History Ipratropium-Albuterol Nebulize 3 ml INHALATION RT-Q4H PRN 02/03/18 02/03/18 History [Duoneb 0.5 mg-3 mg/3 ml Soln] Ipratropium-Albuterol Nebulize 3 ml INHALATION RT-QID 02/03/18 02/03/18 History [Duoneb 0.5 mg-3 mg/3 ml Soln] Melatonin 3 mg PEG/G-TUBE HS 02/03/18 02/03/18 History Menthol [Biofreeze] 1 applic TOPICAL BID 02/03/18 02/03/18 History Menthol-Zinc Oxide Oint 1 applic TOPICAL BID 02/03/18 02/03/18 History [Calmoseptine Oint] Mylanta 30 ml PEG/G-TUBE QID PRN 02/03/18 02/03/18 History Pantoprazole Sodium [Protonix] 40 mg PEG/G-TUBE DAILY 02/03/18 02/03/18 History Tamsulosin HCl [Flomax] 0.4 mg PEG/G-TUBE DAILY 02/03/18 02/03/18 History Tylenol Liquid 500mg/15ml 500 mg PEG/G-TUBE TID PRN 02/03/18 02/03/18 History traMADol HCL [Ultram] 50 mg PEG/G-TUBE Q6HR PRN 02/03/18 02/03/18 History Allergies Allergy/AdvReac Type Severity Reaction Status Date / Time No Known Allergies Allergy Verified 02/02/18 23:33 Physical Exam Vitals: Vital Signs Temp Pulse Pulse Resp BP BP Pulse Ox 02/03/18 12:28 71 02/03/18 12:15 71 02/03/18 12:00 98.3 F 69 15 113/56 100 02/03/18 11:00 66 65 16 110/57 110/57 100 02/03/18 10:00 72 68 16 122/71 122/71 99 02/03/18 09:00 66 68 20 102/54 105/54 98 02/03/18 08:20 70 02/03/18 08:09 70 02/03/18 08:00 97.7 F 68 65 16 107/57 124/64 93 L 02/03/18 07:54 67 18 113/55 94 L 02/03/18 07:00 65 16 103/51 96 02/03/18 06:15 99.1 F 70 16 117/78 94 L 02/03/18 04:30 97.4 F L 68 18 77/44 97 02/03/18 04:20 105/54 02/03/18 03:45 18 89/48 02/03/18 01:26 71 16 101/58 95 02/03/18 01:23 18 97 02/03/18 00:43 98.3 F 87 16 106/59 98 02/03/18 00:11 73 16 95/50 97 02/03/18 00:10 70 02/02/18 23:47 84 24 120/57 95 02/02/18 23:38 85 02/02/18 23:25 98 F 84 38 H 137/75 94 L Intake and Output 02/02/18 02/03/18 02/03/18 22:59 06:59 14:59 Intake Total 750 Output Total 535 Balance 215 Intake: IV 600 Sodium Chloride 0.9% 1, 600 000 ml @ 100 mls/hr IV . Q10H OLE Rx#:[id number] Intake, IV Titration 150 Amount Fluconazole in NaCl,Iso- 100 Osm 100 mg In Saline 1 50ml.bag @ 50 mls/hr IVPB DAILY OLE Rx#:[id number] Piperacillin-Tazobactam 3 50 .375 gm In Dextrose/Water 1 50ml.bag @ 12.5 mls/hr IVPB Q8H OLE Rx#: [id number] Output: Urine 535 Other: Voiding Method Indwelling Catheter Indwelling Catheter Weight 90 kg -GENERAL: The patient does not open I spontaneously, and he does not response to verbal stimuli , patient on BiPAP HEENT: Pupils are round and equally reacting to light. EOMI. No scleral icterus. No conjunctival pallor. Normocephalic, atraumatic. No pharyngeal erythema. No thyromegaly. CARDIOVASCULAR: S1 and S2 present. No murmurs, rubs, or gallops. -PULMONARY: Chest is clear to auscultation, few bilateral scattered wheezing or crackles. ABDOMEN: Soft, nontender, nondistended, normoactive bowel sounds. No palpable organomegaly. MUSCULOSKELETAL: No joint swelling or deformity. EXTREMITIES: No cyanosis, clubbing, or pedal edema. NEUROLOGICAL: Gross neurological examination did not reveal any focal deficits. SKIN: No rashes. Results CBC & Chem 7: 02/03/18 05:14 02/03/18 05:14 Labs: Abnormal Lab Results - Last 24 Hours (Table) 02/02/18 02/02/18 02/02/18 Range/Units 23:16 23:16 23:16 WBC 16.9 H (3.8-10.6) k/uL RBC 3.92 L (4.30-5.90) m/uL Hgb 11.5 L (13.0-17.5) gm/dL Hct 36.7 L (39.0-53.0) % Neutrophils # 14.9 H (1.3-7.7) k/uL Lymphocytes # 0.5 L (1.0-4.8) k/uL Monocytes # 1.1 H (0-1.0) k/uL ABG pH (7.35-7.45) ABG pCO2 (35-45) mmHg ABG HCO3 (21-25) mmol/L ABG Total CO2 (19-24) mmol/L ABG O2 Saturation (94-97) % VBG pCO2 (37-51) mmHg VBG HCO3 (24-28) mmol/L Sodium 128 L (137-145) mmol/L Potassium 5.8 H (3.5-5.1) mmol/L Chloride 83 L (98-107) mmol/L Carbon Dioxide 39 H (22-30) mmol/L BUN 107 H* (9-20) mg/dL Creatinine 2.06 H (0.66-1.25) mg/dL Glucose 126 H (74-99) mg/dL POC Glucose (mg/dL) (75-99) mg/dL Plasma Lactic Acid Beny (0.7-2.0) mmol/L Calcium 8.2 L (8.4-10.2) mg/dL Magnesium 2.9 H (1.6-2.3) mg/dL Total Creatine Kinase 185 H (55-170) U/L CK-MB (CK-2) 39.6 H (0.0-2.4) ng/mL Troponin I 0.041 H* (0.000-0.034) ng/mL Total Protein 5.5 L (6.3-8.2) g/dL Albumin 2.8 L (3.5-5.0) g/dL Urine Protein (Negative) Urine Blood (Negative) Ur Leukocyte Esterase (Negative) Urine RBC (0-5) /hpf Urine WBC (0-5) /hpf Urine WBC Clumps (None) /hpf Urine Mucus (None) /hpf Urine Yeast (Budding) (None) /hpf 02/02/18 02/02/18 02/03/18 Range/Units 23:16 23:33 05:01 WBC (3.8-10.6) k/uL RBC (4.30-5.90) m/uL Hgb (13.0-17.5) gm/dL Hct (39.0-53.0) % Neutrophils # (1.3-7.7) k/uL Lymphocytes # (1.0-4.8) k/uL Monocytes # (0-1.0) k/uL ABG pH 7.28 L (7.35-7.45) ABG pCO2 74 H* (35-45) mmHg ABG HCO3 35 H (21-25) mmol/L ABG Total CO2 37 H (19-24) mmol/L ABG O2 Saturation 97.1 H (94-97) % VBG pCO2 65 H (37-51) mmHg VBG HCO3 36 H (24-28) mmol/L Sodium (137-145) mmol/L Potassium (3.5-5.1) mmol/L Chloride (98-107) mmol/L Carbon Dioxide (22-30) mmol/L BUN (9-20) mg/dL Creatinine (0.66-1.25) mg/dL Glucose (74-99) mg/dL POC Glucose (mg/dL) 136 H (75-99) mg/dL Plasma Lactic Acid Beny (0.7-2.0) mmol/L Calcium (8.4-10.2) mg/dL Magnesium (1.6-2.3) mg/dL Total Creatine Kinase (55-170) U/L CK-MB (CK-2) (0.0-2.4) ng/mL Troponin I (0.000-0.034) ng/mL Total Protein (6.3-8.2) g/dL Albumin (3.5-5.0) g/dL Urine Protein (Negative) Urine Blood (Negative) Ur Leukocyte Esterase (Negative) Urine RBC (0-5) /hpf Urine WBC (0-5) /hpf Urine WBC Clumps (None) /hpf Urine Mucus (None) /hpf Urine Yeast (Budding) (None) /hpf 02/03/18 02/03/18 02/03/18 Range/Units 05:04 05:14 05:14 WBC 14.3 H (3.8-10.6) k/uL RBC 3.40 L (4.30-5.90) m/uL Hgb 10.1 L (13.0-17.5) gm/dL Hct 32.1 L (39.0-53.0) % Neutrophils # 12.3 H (1.3-7.7) k/uL Lymphocytes # 0.6 L (1.0-4.8) k/uL Monocytes # (0-1.0) k/uL ABG pH (7.35-7.45) ABG pCO2 (35-45) mmHg ABG HCO3 (21-25) mmol/L ABG Total CO2 (19-24) mmol/L ABG O2 Saturation (94-97) % VBG pCO2 (37-51) mmHg VBG HCO3 (24-28) mmol/L Sodium (137-145) mmol/L Potassium (3.5-5.1) mmol/L Chloride (98-107) mmol/L Carbon Dioxide (22-30) mmol/L BUN (9-20) mg/dL Creatinine (0.66-1.25) mg/dL Glucose (74-99) mg/dL POC Glucose (mg/dL) (75-99) mg/dL Plasma Lactic Acid Beny (0.7-2.0) mmol/L Calcium (8.4-10.2) mg/dL Magnesium (1.6-2.3) mg/dL Total Creatine Kinase (55-170) U/L CK-MB (CK-2) (0.0-2.4) ng/mL Troponin I 0.041 H* (0.000-0.034) ng/mL Total Protein (6.3-8.2) g/dL Albumin (3.5-5.0) g/dL Urine Protein 1+ H (Negative) Urine Blood Moderate H (Negative) Ur Leukocyte Esterase Moderate H (Negative) Urine RBC 40 H (0-5) /hpf Urine WBC 13 H (0-5) /hpf Urine WBC Clumps Rare H (None) /hpf Urine Mucus Rare H (None) /hpf Urine Yeast (Budding) Many H (None) /hpf 02/03/18 02/03/18 02/03/18 Range/Units 05:14 05:14 07:30 WBC (3.8-10.6) k/uL RBC (4.30-5.90) m/uL Hgb (13.0-17.5) gm/dL Hct (39.0-53.0) % Neutrophils # (1.3-7.7) k/uL Lymphocytes # (1.0-4.8) k/uL Monocytes # (0-1.0) k/uL ABG pH (7.35-7.45) ABG pCO2 (35-45) mmHg ABG HCO3 (21-25) mmol/L ABG Total CO2 (19-24) mmol/L ABG O2 Saturation (94-97) % VBG pCO2 (37-51) mmHg VBG HCO3 (24-28) mmol/L Sodium 130 L (137-145) mmol/L Potassium 5.2 H (3.5-5.1) mmol/L Chloride 90 L (98-107) mmol/L Carbon Dioxide 32 H (22-30) mmol/L BUN 101 H* (9-20) mg/dL Creatinine 1.97 H (0.66-1.25) mg/dL Glucose 47 L* (74-99) mg/dL POC Glucose (mg/dL) 59 L (75-99) mg/dL Plasma Lactic Acid Beny <0.5 L (0.7-2.0) mmol/L Calcium 7.5 L (8.4-10.2) mg/dL Magnesium 2.6 H (1.6-2.3) mg/dL Total Creatine Kinase (55-170) U/L CK-MB (CK-2) (0.0-2.4) ng/mL Troponin I (0.000-0.034) ng/mL Total Protein (6.3-8.2) g/dL Albumin (3.5-5.0) g/dL Urine Protein (Negative) Urine Blood (Negative) Ur Leukocyte Esterase (Negative) Urine RBC (0-5) /hpf Urine WBC (0-5) /hpf Urine WBC Clumps (None) /hpf Urine Mucus (None) /hpf Urine Yeast (Budding) (None) /hpf 02/03/18 02/03/18 02/03/18 Range/Units 11:20 11:26 11:54 WBC (3.8-10.6) k/uL RBC (4.30-5.90) m/uL Hgb (13.0-17.5) gm/dL Hct (39.0-53.0) % Neutrophils # (1.3-7.7) k/uL Lymphocytes # (1.0-4.8) k/uL Monocytes # (0-1.0) k/uL ABG pH (7.35-7.45) ABG pCO2 (35-45) mmHg ABG HCO3 (21-25) mmol/L ABG Total CO2 (19-24) mmol/L ABG O2 Saturation (94-97) % VBG pCO2 (37-51) mmHg VBG HCO3 (24-28) mmol/L Sodium (137-145) mmol/L Potassium (3.5-5.1) mmol/L Chloride (98-107) mmol/L Carbon Dioxide (22-30) mmol/L BUN (9-20) mg/dL Creatinine (0.66-1.25) mg/dL Glucose (74-99) mg/dL POC Glucose (mg/dL) 54 L 124 H (75-99) mg/dL Plasma Lactic Acid Beny (0.7-2.0) mmol/L Calcium (8.4-10.2) mg/dL Magnesium (1.6-2.3) mg/dL Total Creatine Kinase (55-170) U/L CK-MB (CK-2) (0.0-2.4) ng/mL Troponin I 0.049 H* (0.000-0.034) ng/mL Total Protein (6.3-8.2) g/dL Albumin (3.5-5.0) g/dL Urine Protein (Negative) Urine Blood (Negative) Ur Leukocyte Esterase (Negative) Urine RBC (0-5) /hpf Urine WBC (0-5) /hpf Urine WBC Clumps (None) /hpf Urine Mucus (None) /hpf Urine Yeast (Budding) (None) /hpf Thrombosis Risk Factor Assmnt - Choose All That Apply Any of the Below Risk Factors Present?: Yes Each Factor Represents 1 point: Heart failure (<1month), Obesity (BMI >25) Other Risk Factors: Yes Each Risk Factor Represents 2 Points: Malignancy Each Risk Factor Represents 3 Points: Age 75 years or older Other congenital or acquired thrombophilia - If yes, enter type in comment: No Thrombosis Risk Factor Assessment Total Risk Factor Score: 7 Thrombosis Risk Factor Assessment Level: High Risk Assessment and Plan Assessment: Acute hypoxic respiratory failure, unclear etiology, possible pneumonia Possible Metabolic/respiratory acidosis Metabolic and respiratory encephalopathy Dehydration, with some elements of hypovolemia Hyperkalemia Urinary tract infection Hyponatremia History of COPD History of dysphasia, with risk of aspiration pneumonia History of melanoma, status post chemotherapy Diabetes mellitus, his sugar currently is better controlled Periods of hypoglycemia on admission, resolved Chronic kidney disease Hypertension Hyperlipidemia 50-69% left carotid artery stenosis Plan: This is an 82 years old male with multiple medical problems who presents with altered mental status and hypoxia. Patient was admitted to the ICU. Critical care team evaluation is appreciated. Patient originally has DO NOT RESUSCITATE orders as per notes. However his been placed to comfort care measures upon family request and as per staff. However even before that prognosis was very poor given the multiple medical problems and his advanced age. Originally patient was started on antibiotics which was stopped and placed on comfort care measures only. Consult to hospice has paced
--- NOTE | 2018-02-03 20:12 | P.DS ---
Providers Date of admission: 02/02/18 23:50 Attending physician: Fuad Yen Consults: 02/02/18 23:50 Consult Physician Routine Consulting Provider: Sonia Nelson Consult Reason/Comments: known Do you want consulting provider notified?: Yes Primary care physician: Physician Nonstaff Hospital Course: This is an 82 years old male with past medical history of atrial fibrillation, COPD, diabetes mellitus, deafness/hearing disorder, hyperlipidemia, hypertension , memory impairment/dementia, osteoarthritis, chronic kidney disease, left carotid artery stenosis in 50-65%, previous MRI showing UROLOGIST atrophy. Dysphagia. Stage I sacral decubitus ulcer. Melanoma, status post chemotherapy. Now presents with dyspnea and altered mental status. Patient could not provide information as information is taken from the medical records and staff. Presents to the emergency room with dyspnea and hypoxia, and altered mental status. Patient was placed on BiPAP and on arrival to emergency room for hypoxia he was started on IV antibiotic. he got a breathing treatment. Started on Levaquin and Zosyn. With IV fluids, besides bicarb, in dextrose and insulin. Sugar on admission was 136, 59, 93, 54, and currently 124 , while his WBCs 14.3 K. Hemoglobin 10.1. Platelets 277. ABG showing pH 7.2, pCO2 74. Sodium was 130. Potassium 5.2. Creatinine 1.9, 2.06. Baseline between 1.5 and 2.2. Troponin is elevated at 0.04 and 0.04. UA suggestive of infection. Patient was admitted to the ICU. And this morning is the first time I know about and saw the patient he was already in the ICU. Pulmonary/ critical care team already evaluated the patient for altered mental status along with worsening pulmonary status and hypoxia. The exact etiology is not clear. With underlying UTI and suspected hypovolemia/dehydration with superimposed pneumonia cannot be completely excluded. Patient was already started on Levaquin and Zosyn, besides IV fluids. However family decided to make the patient comfort care before I have a chance to re-evaluate pt orders have been already initiated. pt was transferred to hospice home upon family request please see exam from today H&P time spent more than 35 min Patient Condition at Discharge: Serious Plan - Discharge Summary Discharge Rx Participant: No New Discharge Prescriptions: No Action Fluocinonide 0.05% [Lidex 0.05% cream] 1 applic TOPICAL BID Ketoconazole 2% Cream [Nizoral 2%] 1 applic TOPICAL BID Ammonium Lactate Cream [Lac-Hydrin 12% Cream] 1 applic TOPICAL DAILY PRN PRN Reason: Dry Skin Multivitamins, Thera [Multivitamin (formulary)] 1 tab PEG/G-TUBE HS Pioglitazone [Actos] 45 mg PEG/G-TUBE DAILY Atorvastatin Calcium [Lipitor] 80 mg PEG/G-TUBE HS Furosemide [Lasix] 40 mg PEG/G-TUBE DAILY Carvedilol [Coreg] 6.25 mg PEG/G-TUBE BID-W/MEALS Insulin Glargine,Hum.rec.anlog [Basaglar Kwikpen U-100] 35 unit SQ HS Budesonide/Formoterol Fumarate [Symbicort 160-4.5 Mcg Inhaler] 2 puff INHALATION RT-BID traMADol HCL [Ultram] 50 mg PEG/G-TUBE Q6HR PRN PRN Reason: Pain Tylenol Liquid 500mg/15ml 500 mg PEG/G-TUBE TID PRN PRN Reason: Pain Or Fever > 100.5 Pantoprazole Sodium [Protonix] 40 mg PEG/G-TUBE DAILY INSULIN LISPRO (HumaLOG) [humaLOG] See Protocol SQ Q6H Mylanta 30 ml PEG/G-TUBE QID PRN PRN Reason: ANTACID Melatonin 3 mg PEG/G-TUBE HS Escitalopram Oxalate [Lexapro] 10 mg PEG/G-TUBE HS Ipratropium-Albuterol Nebulize [Duoneb 0.5 mg-3 mg/3 ml Soln] 3 ml INHALATION RT-Q4H PRN PRN Reason: SOB/WHEEZING Glucerna Shake 1 dose PEG/G-TUBE DIRECTED Tamsulosin HCl [Flomax] 0.4 mg PEG/G-TUBE DAILY Menthol-Zinc Oxide Oint [Calmoseptine Oint] 1 applic TOPICAL BID Menthol [Biofreeze] 1 applic TOPICAL BID Aspirin EC [Ecotrin Low Dose] 81 mg PEG/G-TUBE DAILY Ipratropium-Albuterol Nebulize [Duoneb 0.5 mg-3 mg/3 ml Soln] 3 ml INHALATION RT-QID Discharge Medication List Ammonium Lactate Cream [Lac-Hydrin 12% Cream] 1 applic TOPICAL DAILY PRN [History] Atorvastatin Calcium [Lipitor] 80 mg PEG/G-TUBE HS 01/02/18 [History] Carvedilol [Coreg] 6.25 mg PEG/G-TUBE BID-W/MEALS 01/02/18 [History] Fluocinonide 0.05% [Lidex 0.05% cream] 1 applic TOPICAL BID 01/02/18 [History] Furosemide [Lasix] 40 mg PEG/G-TUBE DAILY 01/02/18 [History] Insulin Glargine,Hum.rec.anlog [Basaglar Kwikpen U-100] 35 unit SQ HS 01/02/18 [ History] Ketoconazole 2% Cream [Nizoral 2%] 1 applic TOPICAL BID 01/02/18 [History] Multivitamins, Thera [Multivitamin (formulary)] 1 tab PEG/G-TUBE HS 01/02/18 [ History] Pioglitazone [Actos] 45 mg PEG/G-TUBE DAILY 01/02/18 [History] Budesonide/Formoterol Fumarate [Symbicort 160-4.5 Mcg Inhaler] 2 puff INHALATION RT-BID 01/12/18 [History] Aspirin EC [Ecotrin Low Dose] 81 mg PEG/G-TUBE DAILY 02/03/18 [History] Escitalopram Oxalate [Lexapro] 10 mg PEG/G-TUBE HS 02/03/18 [History] Glucerna Shake 1 dose PEG/G-TUBE DIRECTED 02/03/18 [History] INSULIN LISPRO (HumaLOG) [humaLOG] See Protocol SQ Q6H 02/03/18 [History] Ipratropium-Albuterol Nebulize [Duoneb 0.5 mg-3 mg/3 ml Soln] 3 ml INHALATION RT -Q4H PRN 02/03/18 [History] Ipratropium-Albuterol Nebulize [Duoneb 0.5 mg-3 mg/3 ml Soln] 3 ml INHALATION RT -QID 02/03/18 [History] Melatonin 3 mg PEG/G-TUBE HS 02/03/18 [History] Menthol [Biofreeze] 1 applic TOPICAL BID 02/03/18 [History] Menthol-Zinc Oxide Oint [Calmoseptine Oint] 1 applic TOPICAL BID 02/03/18 [ History] Mylanta 30 ml PEG/G-TUBE QID PRN 02/03/18 [History] Pantoprazole Sodium [Protonix] 40 mg PEG/G-TUBE DAILY 02/03/18 [History] Tamsulosin HCl [Flomax] 0.4 mg PEG/G-TUBE DAILY 02/03/18 [History] Tylenol Liquid 500mg/15ml 500 mg PEG/G-TUBE TID PRN 02/03/18 [History] traMADol HCL [Ultram] 50 mg PEG/G-TUBE Q6HR PRN 02/03/18 [History] Follow up Appointment(s)/Referral(s): Prasad Berg MD [REFERRING] - 1-2 days Patient Instructions/Handouts: Hospice (DC) Activity/Diet/Wound Care/Special Instructions: [facility] [place]---[facility] 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
[2018-02-03] MEDS ORDERED: INSULIN DETEMIR 100 UNIT/ML 10 ML VIAL SQ SCH (21:00)
[2018-02-04] MEDS ORDERED: LEVOFLOXACIN 750MG-D5W PMX 750 MG in DEXTROSE/WATER 1 150ML.BAG IVPB SCH (23:30)
== END 2018-02-03 16:25 | disposition hospice, home (50) | DRG 189 ==
LOC: EC 23:24 → 6SEL 23:50 → 6ICU 02-03 05:49
PROVIDERS: ADMIT Hospitalist; ATTEND Hospitalist
DX: J96.21 Acute and chronic respiratory failure with hypoxia (principal); G93.41 Metabolic encephalopathy; J18.9 Pneumonia, unspecified organism; C34.90 Malignant neoplasm of unspecified part of unspecified bronchus or lung; E87.1 Hypo-osmolality and hyponatremia; J44.0 Chronic obstructive pulmonary disease with (acute) lower respiratory infection; J44.1 Chronic obstructive pulmonary disease with (acute) exacerbation; N39.0 Urinary tract infection, site not specified; E11.22 Type 2 diabetes mellitus with diabetic chronic kidney disease; E11.649 Type 2 diabetes mellitus with hypoglycemia without coma; E78.5 Hyperlipidemia, unspecified; E86.0 Dehydration; E86.1 Hypovolemia; E87.5 Hyperkalemia; F03.90 Unspecified dementia, unspecified severity, without behavioral disturbance, psychotic disturbance, mood disturbance, and anxiety; F32.9 Major depressive disorder, single episode, unspecified; F41.9 Anxiety disorder, unspecified; H91.90 Unspecified hearing loss, unspecified ear; I12.9 Hypertensive chronic kidney disease with stage 1 through stage 4 chronic kidney disease, or unspecified chronic kidney disease; I48.0 Paroxysmal atrial fibrillation; I65.22 Occlusion and stenosis of left carotid artery; I77.1 Stricture of artery; L80 Vitiligo; L89.151 Pressure ulcer of sacral region, stage 1; N18.9 Chronic kidney disease, unspecified; R13.10 Dysphagia, unspecified; R47.02 Dysphasia; Y95 Nosocomial condition; Z51.5 Encounter for palliative care; Z66 Do not resuscitate; Z79.51 Long term (current) use of inhaled steroids; Z79.84 Long term (current) use of oral hypoglycemic drugs; Z82.0 Family history of epilepsy and other diseases of the nervous system; Z85.118 Personal history of other malignant neoplasm of bronchus and lung; Z85.820 Personal history of malignant melanoma of skin; Z87.01 Personal history of pneumonia (recurrent); Z87.891 Personal history of nicotine dependence; Z92.21 Personal history of antineoplastic chemotherapy; Z90.49 Acquired absence of other specified parts of digestive tract
CPT/HCPCS: 36415; 36600; 71045; 80048; 80053; 81001; 82550; 82553; 82803; 82805; 83605; 83735; 83880; 84484; 85025; 85610; 85730; 87040; 87086; 93005; 94640; 94660; 96365; 99291